=== PATIENT | female | born 1955 | race Caucasian/White ===

== ENCOUNTER → 2016-12-01 | Outpatient (CLI) | payer BC ==
[~2016-12-01] MED LIST: CATHETER FLUSH 10 ML SYR IV PRN; REGADENOSON 0.4 MG/5 ML SYR (LEXISCAN) IV ONE
[2016-12-01 12:58] VITALS: BP 141/77
--- NOTE | 2016-12-02 06:15 | STRESS TEST ---
DATE OF SERVICE: 12/01/2016 LEXISCAN MYOVIEW STRESS TEST REFERRING PHYSICIANS: Annabelle Holguin MD and Jason Carlos DO FINDINGS: Baseline heart rate is 72. Baseline blood pressure 141/77. Baseline EKG is sinus rhythm with no ischemic changes. SUMMARY: The patient was injected with 10.97 mCi of technetium-99 Myoview, and the resting images were obtained. Then the patient received 0.4 mg of Lexiscan, followed by 30.0 mCi of technetium-99 Myoview. Throughout the test, there were no EKG changes. The resting and stress images were reviewed and compared in the short axis, horizontal long axis and vertical long axis views. Review of the images showed good radiotracer uptake with breast attenuation affecting the quality of the images. No significant ischemia or infarction on SPECT images. SSS is 1. SDS 1. TID value 1.02. On the gated images, the left ventricle appeared to be normal size with normal contractility. Calculated ejection fraction 75%. CONCLUSION: 1. The patient tolerated Lexiscan well. 2. Typical female pattern with no significant ischemia or infarction on SPECT images. 3. Normal left ventricular size with normal contractility. Calculated ejection fraction 75%. Job ID: [id number] DocumentID: [id number] Dictated Date: 12/01/2016 15:12:10 Occupational Therapy Specialist Date: 12/01/2016 20:01:47 Dictated By: HEYDI ACOSTA MD
--- NOTE | 2016-12-02 10:19 | ECHOCARDIOGRAPHY REPORT ---
DATE OF SERVICE: 12/01/2016 TWO DIMENSIONAL ECHOCARDIOGRAM REFERRING PHYSICIAN: Wilma Ferreira MD MEASUREMENTS: LVID end-diastolic: 5.2. IVS thickness: 1.0. LVPW thickness: 1.0. Left atrial diameter: 4.0. Ejection fraction: 60%. FINDINGS: 1. Technically difficult study. 2. The left ventricle is normal in size with normal contractility, systolic function appeared to be normal, estimated ejection fraction is 60%. 3. The left atrium is normal in size. No clot or thrombus were seen within the left atrium. 4. The right atrium and right ventricle are normal in size. No clot or thrombus were seen within the right side. 5. Mitral valve is normal in morphology with mild mitral regurgitation noted by color Doppler flow. No mitral valve prolapse. No mitral valve stenosis. 6. Aortic valve is trileaflet with normal opening and closing pattern. No significant aortic stenosis or regurgitation was seen. 7. Tricuspid valve is normal in morphology with mild tricuspid regurgitation noted by color Doppler flow. Doppler across tricuspid valve estimated pulmonary artery pressure of 16 plus right atrial pressure. 8. Pulmonic valve is functioning normally. 9. No pericardial effusion. CONCLUSIONS: 1. Technically difficulty study. 2. Normal left ventricular size and systolic function. Estimated ejection fraction is 60%. 3. Mild mitral and tricuspid regurgitation. 4. Estimated pulmonary artery pressure of 25 mmHg. Job ID: [id number] DocumentID: [id number] Dictated Date: 12/01/2016 16:20:56 Mule Packer Date: 12/01/2016 19:54:02 Dictated By: HEYDI ACOSTA MD
== END ==
LOC: CARD 09:25
PROVIDERS: ATTEND Internal Medicine Cardiovascular Disease
DX: I25.10 Atherosclerotic heart disease of native coronary artery without angina pectoris (principal); I10 Essential (primary) hypertension; E78.2 Mixed hyperlipidemia; E11.9 Type 2 diabetes mellitus without complications; G47.33 Obstructive sleep apnea (adult) (pediatric); I08.1 Rheumatic disorders of both mitral and tricuspid valves
CPT/HCPCS: 78452; 93017; 93306

== ENCOUNTER 2016-12-31 05:31 | Outpatient (CLI) | payer BC ==
[~2016-12-31] VITALS: Ht 168.9 cm; Wt 130.6 kg
[2016-12-31] MEDS ORDERED: DULO30CA48 PO (12:02)
[2016-12-31] MEDS ORDERED: ZOLP10TA5 PO (12:03)
[2016-12-31] MEDS ORDERED: DIPH25TA31 PO (12:03)
[2016-12-31] MEDS ORDERED: DULO60CA58 PO (12:03)
[2016-12-31] MEDS ORDERED: LISI10TA2 PO (12:03)
[2016-12-31] MEDS ORDERED: METF500T8 PO (12:03)
[2016-12-31] MEDS ORDERED: SAXA1TBM2 PO (12:03)
[2016-12-31] MEDS ORDERED: MELA1TAB15 PO (12:03)
[2016-12-31] MEDS ORDERED: FENO135C4 PO (12:03)
[2016-12-31] MEDS ORDERED: CRAN400T3 PO (12:03)
[2016-12-31] MEDS ORDERED: UBID100C17 PO (12:03)
[2016-12-31] MEDS ORDERED: ATOR20TA66 PO (12:03)
[2016-12-31] MEDS ORDERED: ASPI-586 PO (12:03)
[2016-12-31] MEDS ORDERED: CARV3.122 PO (12:03)
[2016-12-31] MEDS ORDERED: CLON0.5T3 PO (12:03)
[2016-12-31] MEDS ORDERED: NAPR220C11 PO (12:03)
== END 2016-12-31 12:04 ==
LOC: PREOP 05:31
PROVIDERS: ATTEND Psychiatry & Neurology Neurology
DX: Z01.818 Encounter for other preprocedural examination (principal); Z12.11 Encounter for screening for malignant neoplasm of colon

== ENCOUNTER 2017-01-04 10:26 | Day surgery (SDC) | payer BC ==
[~2017-01-04 10:26] MED LIST changes: +ASPI-586 PO; +ATOR20TA66 PO; +CARV3.122 PO; -CATHETER FLUSH 10 ML SYR IV PRN; +CLON0.5T3 PO; +CRAN400T3 PO; +DIPH25TA31 PO; +DULO30CA48 PO; +DULO60CA58 PO; +FENO135C4 PO; +LISI10TA2 PO; +MELA1TAB15 PO; +METF500T8 PO; +NAPR220C11 PO; -REGADENOSON 0.4 MG/5 ML SYR (LEXISCAN) IV ONE; +SAXA1TBM2 PO; +UBID100C17 PO; +ZOLP10TA5 PO
[2017-01-04 10:35] VITALS: BP 128/61
[2017-01-04] MEDS ORDERED: LACTATED RINGERS 1,000 ML IV STA (10:40)
[2017-01-04] MEDS ORDERED: MIDAZOLAM 2 MG/2 ML (VERSED) VIAL ONE (12:29)
[2017-01-04] MEDS ORDERED: PROPOFOL INJECTION 50 ML IV ONE (12:29)
--- NOTE | 2017-01-04 13:47 | Progress Note-Post Operative ---
Post-Operative Progess Note Surgeon (s)/Health Information Administrator (s) Surgeon GARO BLACK DO Health Information Administrator: na Pre-Operative Diagnosis history of colon polyps Post-Operative Diagnosis colon polyps Procedure & Operative Findings Date of Procedure 01/04/17 Procedure Performed/Findings colonoscopy with hot bx polypectomy x 2 and placement of endoclip Anesthesia Type per mda Estimated Blood Loss Estimated blood loss (mL): scant Specimens/Packing Specimens Removed splenic flexure and rectal polyp GARO BLACK DO Jan 04, 2017 1:47 pm
--- NOTE | 2017-01-04 13:47 | Discharge Inst-Simple/Standard ---
Discharge Inst-Standard Patient Instructions/Follow Up Plan of Care/Instructions/FU: Follow up with Dr. Carlos in clinic in 2 weeks Repeat colonoscopy in 5 years. Hold Aspirin and naprosyn for 3 days. Activity as Tolerated: Yes Discharge Diet: No Restrictions HARLEY CRUZ APRN Jan 04, 2017 13:47
[2017-01-04 14:00] VITALS: BP 139/89
[2017-01-04 14:30] VITALS: BP 135/81
[2017-01-04 14:40] VITALS: BP 135/81
--- OUTSIDE RECORDS SUMMARY | 2017-01-04 19:56 | XMS REPORT | Continuity of Care Document ---
Author Author [facility] Address Unknown Phone Unavailable Allergies Active Description Code Type Severity Reaction Onset Reported/Identified Relationship to Patient Clinical Status Yes No Allergy Information Available [id number] Drug Allergy Unknown N/A 12/01/2016 Yes atorvastatin [id number] Drug Allergy Unknown HIVES 12/31/2016 Yes Penicillins [id number] Drug Allergy Unknown HIVES 12/31/2016 Yes rosuvastatin [id number] Drug Allergy Unknown HIVES 12/31/2016 Medications Problems Date Dx Coded Attending Type Code Diagnosis Diagnosed By 09/25/2014 DONG RUBALCAVA DO V74.1 TB SCREENING 11/22/2015 MAX CASH MD Ot G47.33 OBSTRUCTIVE SLEEP APNEA (ADULT) (PEDIATR 11/30/2015 MAX CASH MD Ot G47.33 OBSTRUCTIVE SLEEP APNEA (ADULT) (PEDIATR 12/02/2016 HEYDI ACOSTA MD Ot E11.9 TYPE 2 DIABETES MELLITUS WITHOUT COMPLIC 12/02/2016 HEYDI ACOSTA MD Ot E78.2 MIXED HYPERLIPIDEMIA 12/02/2016 HEYDI ACOSTA MD Ot G47.33 OBSTRUCTIVE SLEEP APNEA (ADULT) (PEDIATR 12/02/2016 HEYDI ACOSTA MD Ot 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 12/02/2016 HEYDI ACOSTA MD Ot I10 ESSENTIAL (PRIMARY) HYPERTENSION 12/02/2016 HEYDI ACOSTA MD Ot I25.10 ATHSCL HEART DISEASE OF [place] CORONARY 12/03/2016 HEYDI ACOSTA MD Ot E11.9 TYPE 2 DIABETES MELLITUS WITHOUT COMPLIC 12/03/2016 HEYDI ACOSTA MD Ot E78.2 MIXED HYPERLIPIDEMIA 12/03/2016 HEYDI ACOSTA MD Ot G47.33 OBSTRUCTIVE SLEEP APNEA (ADULT) (PEDIATR 12/03/2016 HEYDI ACOSTA MD Ot 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 12/03/2016 HEYDI ACOSTA MD Ot I10 ESSENTIAL (PRIMARY) HYPERTENSION 12/03/2016 HEYDI ACOSTA MD Ot I25.10 ATHSCL HEART DISEASE OF [place] CORONARY 12/16/2016 HEYDI ACOSTA MD Ot E11.9 TYPE 2 DIABETES MELLITUS WITHOUT COMPLIC 12/16/2016 HEYDI ACOSTA MD Ot E78.2 MIXED HYPERLIPIDEMIA 12/16/2016 HEYDI ACOSTA MD Ot G47.33 OBSTRUCTIVE SLEEP APNEA (ADULT) (PEDIATR 12/16/2016 HEYDI ACOSTA MD Ot 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 12/16/2016 HEYDI ACOSTA MD Ot I10 ESSENTIAL (PRIMARY) HYPERTENSION 12/16/2016 HEYDI ACOSTA MD Ot I25.10 ATHSCL HEART DISEASE OF [place] CORONARY Procedures Code [place] [address] TB TEST INTRADERMAL 09/25/2014 Results Encounters ACCT No. Visit Date/Time Discharge Status Pt. Type Provider Facility Loc./Unit Complaint [id number] 09/25/2014 16:43:00 09/25/2014 23: 59:59 CLS Outpatient DONG RUBALCAVA DO
--- NOTE | 2017-01-05 18:38 | OPERATIVE REPORT ---
PROCEDURE PHYSICIAN: GARO BLACK DATE OF PROCEDURE: 01/04/2017 PREOPERATIVE DIAGNOSIS: History of colon polyps. POSTOPERATIVE DIAGNOSIS: Colon polyps. PROCEDURE: Colonoscopy with hot biopsy polypectomy x2 and placement Endo Clip. ANESTHESIA: Per MDA. ESTIMATED BLOOD LOSS: Scant. SPECIMEN: Splenic flexure, rectal polyps. INDICATIONS: The patient is a 61-year-old female with history of colon polyps. She understands the risks and benefits of the procedure and wished to proceed with the procedure. Consent was signed on the chart. PROCEDURE: The patient was taken to the endoscopy suite, placed in left lateral recumbent position. A time out was performed. Digital rectal exam was performed. There were no palpable polyps, masses or ulcerations. The scope was inserted in the rectum, advanced all of the way to the cecum with minimal difficulty. Prep was adequate. The scope was then slowly retracted back. There were no polyps, masses or ulcerations within the cecum, ascending and transverse colon. At the splenic flexure, a small polyp was present, which hot biopsy polypectomy was performed. There was a little bit of continued bleeding therefore an Endo Clip was placed and hemostasis was achieved. The scope was then continued be slowly retracted back. There were no other polyps, masses, ulcerations within the descending colon and sigmoid colon. Once in the rectum another small polyp was present, which hot biopsy polypectomy was performed. The scope was then slowly retracted back into the rectal where it was inserted and retracted multiple times noting no other pathology. The scope was then slowly retracted back until completely remove. The patient tolerated the procedure well without any complication. She was taken recovery room in stable condition. RECOMMENDATIONS: The patient will follow-up in the office in 2 to 3 weeks. We will and discuss pathology and will need a repeat colonoscopy in 3 to 5 years due to multiple polyps and history of colon polyps. Job ID: [id number] Dictated Date: 01/04/2017 13:50:21 Hand Riveter Date: 01/05/2017 18:25:47 / tbk
== END 2017-01-04 14:40 | disposition home or self-care (01) ==
LOC: ENDO 10:26
PROVIDERS: ATTEND Surgery
DX: Z12.11 Encounter for screening for malignant neoplasm of colon (principal); D12.3 Benign neoplasm of transverse colon; K62.1 Rectal polyp; Z86.010 Personal history of colon polyps; E11.9 Type 2 diabetes mellitus without complications; G47.33 Obstructive sleep apnea (adult) (pediatric); I10 Essential (primary) hypertension; I25.10 Atherosclerotic heart disease of native coronary artery without angina pectoris; E66.01 Morbid (severe) obesity due to excess calories; Z68.42 Body mass index [BMI] 45.0-49.9, adult; Z95.5 Presence of coronary angioplasty implant and graft; Z87.891 Personal history of nicotine dependence; Z79.899 Other long term (current) drug therapy
CPT/HCPCS: 88305

== ENCOUNTER → 2018-02-01 | Outpatient (CLI) | payer BC, OTHER ==
[~2018-02-01] VITALS: Ht 167.6 cm; Wt 130.2 kg
[~2018-02-01] MED LIST changes: +ASPI-983 PO; +ATOR40TA70 PO; +AZIT500T PO; +CATHETER FLUSH 10 ML SYR IV PRN; +CLON0.5T13 PO; -CLON0.5T3 PO; +LEVO500T2 PO; +MAGN400T29 PO; +REGADENOSON 0.4 MG/5 ML SYR (LEXISCAN) IV ONE; +RT-ALBUINH IH; +UBID200C16 PO
[2018-02-01 09:29] VITALS: BP 132/88
--- NOTE | 2018-02-01 22:26 | STRESS TEST ---
DATE OF SERVICE: 02/01/2018 LEXISCAN MYOVIEW STRESS TEST REPORT Baseline heart rate is 78. Baseline blood pressure is 132/68. Baseline EKG is sinus rhythm with no ischemic changes. In summary, the patient was injected with 10.22 mCi of technetium-99 Myoview and the resting images were obtained. Then, the patient received 0.4 mg of Lexiscan followed by 31.3 mCi of technetium-99 Myoview. Throughout the test, there were no EKG changes. The resting and stress images were reviewed and compared in the short axis, horizontal long axis, and vertical long axis views. Review of the images showed mild decreased uptake at the basal to mid inferior wall, inferolateral wall with subtle reversibility. SSS is 5, SDS 3, TID value 1.13. On the gated images, the left ventricle appeared to be in normal size with normal contractility. Calculated ejection fraction 69%. CONCLUSION: 1. The patient tolerated Lexiscan well. 2. Extracardiac attenuation affecting the quality of the images, mild decreased uptake at the basal to mid inferior wall and inferolateral wall with subtle reversibility, mild fixed defect at the base of the anterior wall. 3. Normal left ventricular size with normal contractility. Calculated ejection fraction 69%. Job ID: [id number] DocumentID: [id number] Dictated Date: 02/01/2018 17:03:49 Mule Developer Date: 02/01/2018 22:25:30 Dictated By: HEYDI ACOSTA MD
== END ==
LOC: CARD 07:29
PROVIDERS: ATTEND Internal Medicine Cardiovascular Disease
DX: I25.10 Atherosclerotic heart disease of native coronary artery without angina pectoris (principal); I10 Essential (primary) hypertension; E78.2 Mixed hyperlipidemia; E11.9 Type 2 diabetes mellitus without complications; M79.7 Fibromyalgia; Z86.010 Personal history of colon polyps
CPT/HCPCS: 78452; 93017

== ENCOUNTER 2018-02-10 07:03 | Day surgery (SDC) | payer BC, OTHER ==
[2018-02-10] VITALS (10 sets, daily range): BP systolic 124–168; BP diastolic 67–95
[~2018-02-10] VITALS: Ht 167.6 cm; Wt 128.8 kg
[~2018-02-10 07:03] MED LIST changes: -ASPI-983 PO; -ATOR40TA70 PO; -AZIT500T PO; -CATHETER FLUSH 10 ML SYR IV PRN; -LEVO500T2 PO; -MAGN400T29 PO; -REGADENOSON 0.4 MG/5 ML SYR (LEXISCAN) IV ONE; -RT-ALBUINH IH; -UBID200C16 PO
[2018-02-10] MEDS ORDERED: LIDOCAINE 1% INJ 20 ML 20 ML VIAL ONE (07:08)
[2018-02-10] MEDS ORDERED: HEParin (CATH LAB) 2,000 ML IV ONE (07:08)
[2018-02-10] MEDS ORDERED: NS IV 1000 ML 1,000 ML ONE (07:08)
[2018-02-10] MEDS ORDERED: NS IV 1000 ML 1,000 ML IV SCH ×2 (07:15→09:04)
--- NOTE | 2018-02-10 07:36 | Diagnostic Imaging Report ---
EXAM: CHEST 1 VIEW, AP/PA ONLY INDICATION: Coronary artery disease. COMPARISON: None. FINDINGS: Heart size and central pulmonary vascularity upper limits normal. No dense consolidation, pleural effusion or pneumothorax. No acute osseous findings IMPRESSION: Heart size and pulmonary vascularity upper limits normal. Remainder unremarkable. Dictated by: Dictated on workstation # [id number]
[2018-02-10 07:47] LABS: BILIRUBIN,URINE NEGATIVE (NEGATIVE); CLARITY,URINE CLEAR; COLOR,URINE AMBER; GLUCOSE, URINE (UA) NEGATIVE (NEGATIVE); KETONES,URINE NEGATIVE (NEGATIVE); LEUKOCYTE ESTERASE ,URINE 1+ (NEGATIVE); NITRITE,URINE NEGATIVE (NEGATIVE); PH,URINE 5 (5-9); PROTEIN,URINE 1+ (NEGATIVE); UROBILINOGEN,URINE NORMAL (NORMAL)
[2018-02-10 07:54] LABS: HEMOGLOBIN 14.4 G/DL (11.5-16.0); MEAN PLATELET VOLUME 9.7 FL (7.4-10.4); RED BLOOD COUNT 4.79 10^6/uL (4.35-5.85); RED CELL DISTRIBUTION WIDTH 13.9 % (10.0-14.5); WHITE BLOOD COUNT 8.7 10^3/uL (4.3-11.0)
[2018-02-10] MEDS ORDERED: MAGN400T29 PO (07:55)
[2018-02-10] MEDS ORDERED: UBID200C16 PO (07:55)
[2018-02-10] MEDS ORDERED: RT-ALBUINH IH (07:55)
[2018-02-10] MEDS ORDERED: ASPI-983 PO (07:55)
[2018-02-10] MEDS ORDERED: ATOR40TA70 PO (07:55)
[2018-02-10 07:56] LABS: BACTERIA,URINE TRACE /HPF
[2018-02-10 07:59] LABS: PROTHROMBIN TIME PATIENT 12.7 SEC (12.2-14.7)
[2018-02-10 08:06] LABS: ALANINE AMINOTRANSFERASE 36 U/L (0-55); ALBUMIN 4.5 GM/DL (3.2-4.5); ALKALINE PHOSPHATASE 86 U/L (40-136); BILIRUBIN,TOTAL 0.6 MG/DL (0.1-1.0); BUN/CREATININE RATIO 16; CALCIUM 9.6 MG/DL (8.5-10.1); CARBON DIOXIDE 21 MMOL/L (21-32); CHLORIDE 105 MMOL/L (98-107); CHOLESTEROL 175 MG/DL (< 200); CREATININE SERUM 0.79 MG/DL (0.60-1.30); GFR ESTIMATED > 60; GLUCOSE 266 MG/DL (70-105); HDL CHOLESTEROL 31 MG/DL (40-60); SODIUM 138 MMOL/L (135-145); TOTAL PROTEIN 7.5 GM/DL (6.4-8.2); TRIGLYCERIDES 423 MG/DL (<150); VLDL CHOLESTEROL 85 MG/DL (5-40)
--- NOTE | 2018-02-10 08:10 | Cardiac Procedure Note-CS/ASA ---
Pre-Procedure Note Pre-Op Procedure Note H&P Reviewed The H&P was reviewed, patient examined and no changes noted. Date H&P Reviewed: Feb 10, 2018 Time H&P Reviewed: 08:10 Conscious Sedation Pre-Proced Time Reviewed: 08:10 ASA Class: 3 Airway Mallampati Classification: ([place] appropriate class) I. II. III, IV Lungs Heart ASA score ASA 1: a normal healthy patient ASA 2: a patient with a mild systemic disease (mid diabetes, controlled hypertension, obesity x ASA 3: a patient with a severe systemic disease that limits activity (angina , COPD, prior Myocardial infarction) ASA 4: a patient with an incapacitating disease that is a constant threat to life (CHF, renal failure) ASA 5: a moribund patient not expected to survive 24 hrs. (ruptured aneurysm) ASA 6: a declared brain patient whose organs are being harvested. For emergent operations, add the letter E after the classification Grade 3 Sedation Plan: Analgesia, Amnesia, Plan communicated to team members, Discussed options with patient/fam, Discussed risks with patient/fam Note The patient is an appropriate candidate to undergo the planned procedure, sedation, and anesthesia. The patient immediately re-assessed prior to indication. HEYDI ACOSTA MD Feb 10, 2018 08:10
[2018-02-10] MEDS ORDERED: MIDAZOLAM 5 MG/5 ML (VERSED) VIAL ONE (08:27)
[2018-02-10] MEDS ORDERED: NITRO DRIP 25000 MCG/D5W 250 ML IV ONE (08:28)
[2018-02-10] MEDS ORDERED: VERAPAMIL 5 MG/2 ML (CALAN) VIAL IV ONE (08:28)
[2018-02-10] MEDS ORDERED: HEParin 1000 UNIT/ML (10ML VIAL) FOR BOLUS ONE (08:28)
[2018-02-10] MEDS ORDERED: fentaNYL INJECTION 100 MCG/2 ML AMP ONE (08:28)
[2018-02-10] MEDS ORDERED: LEVO500T2 PO (09:09)
--- NOTE | 2018-02-10 09:10 | Discharge Inst-Post CATH ---
Discharge Inst-CATH Post Cardiac Cath D/C Inst Follow Up/Plan Appointment with Dr. Ortez's office in 2-4 weeks Hold metformin for 48 hours CARDIAC CATH DISCHARGE INSTRUCTIONS *Hold Metformin for 48 hours post heart cath. ACTIVITY * Go Home directly and rest. * Limit activity of the leg (or wrist if it was used) for 7 days including aerobics, swimming, jogging, bicycling, etc. * Restrict stair-climbing for 7 days if possible, if not, climb up with your non -cath leg, then bring together on the same step. * Avoid lifting, pushing, pulling or excessive movement of the affected extremity for 7 days. * Customary sexual activity may be resumed after 2 days-use caution not to use a position that strains or causes pain to the affected extremity. * No driving for 24 hours. * NO SMOKING. * Avoid straining for bowel movements for 7 days. * Gentle walking on level ground is allowed. * Returning to work will depend on the type of procedure and the results. Your doctor will discuss this with you. CALL YOUR DOCTOR FOR ANY OF THE FOLLOWING: *If bleeding from the puncture site occurs- Apply gentle pressure to site with clean cloth and call your doctor or EMS. * If a knot or lump forms under the skin, increases in size, or causes pain. * If bruising appears to be worsening or moving further down your leg instead of disappearing. * Temperature above 101 F. CARE OF YOUR GROIN INCISION; * Bruising or purple discoloration of the skin near the puncture site is common. * You may shower only, no bathtub bathing for 5 days. Be careful to avoid slipping as your leg may feel stiff. * If a closure device was used on your femoral artery, please see the attached guide regarding care of the device and your leg. * REMOVE the dressing from your groin the next day after your procedure in the shower. CARE OF YOUR WRIST INCISION; * Bruising or purple discoloration of the skin near the puncture site is common. * You may shower. * DO NOT submerge wrist. * Remove dressing in 24 hours. HEYDI ORTEZ MD Feb 10, 2018 09:10
--- NOTE | 2018-02-10 09:13 | Cardiac Cath Report ---
Cardiac Cath Report Physician (s)/Analytics Consultant (s) Physician HEYDI ACOSTA MD Pre-Procedure Diagnosis Pre-Procedure Diagnosis: abnormal stress test, coronary artery disease Post-Procedure Note Procedure Start Date: Feb 10, 2018 Name of Procedure: coronary angiogram Findings/Procedure Note PROCEDURE NOTE: After explaining the procedure to the patient, all pros and cons were explained , all questions were answered. The patient signed the consent and then she was placed on the cardiac catheterization laboratory. Groin was prepped SL fashion local anesthesia was used. Sheath placed in the right radial artery. christie catheter was used to evaluate the coronaries At the end of the procedure the sheath was removed. band was used FINDINGS: Hemodynamics LV no pressure, no crossing of the aortic valve Aorta 97/63 mean of 77 ANATOMY: Left Main is patent Left Anterior Descending has a patent stent proximally, mild disease distally Left Circumflex no significant obstructive disease Right Coronory Artery has mild disease at the midportion up to 40 percent nonobstructive disease CONCLUSION: 1. Patent stent in the LAD with mild disease distally nonobstructive disease 2. Mild disease in the midright coronary artery nonobstructive disease DISCUSSION AND RECOMMENDATION: Medical therapy is recommended Anesthesia Type: Conscious Sedation Estimated blood loss (mL): 5 ml Contrast Amount: 35 ml Total Radiation Dose: 486 mGy Post-Procedure Diagnosis Post-operative diagnosis: Coronary artery disease Hypertension Hyperlipidemia Diabetes mellitus HEYDI ACOSTA MD Feb 10, 2018 09:13
[2018-02-10] MEDS ORDERED: LEVOFLOXACIN 500 MG TAB (LEVAQUIN) PO ONE (09:15)
[2018-02-10] MEDS ORDERED: AZIT500T PO (09:18)
[2018-02-10] MEDS ORDERED: AZITHROMYCIN 250 MG TAB (ZITHROMAX) PO ONE (09:30)
--- OUTSIDE RECORDS SUMMARY | 2018-02-10 16:06 | XMS REPORT | Continuity of Care Document ---
Author Author [facility] Address Unknown Phone Unavailable Allergies Active Description Code Type Severity Reaction Onset Reported/Identified Relationship to Patient Clinical Status Yes AVELOX UNKNOWN UNKNOWN Yes CIPRO UNKNOWN UNKNOWN Yes FLOUROQUINOLONES UNKNOWN UNKNOWN Yes FLOXIN UNKNOWN UNKNOWN Yes LEVAQUIN UNKNOWN UNKNOWN Yes PENICILLINS UNKNOWN UNKNOWN Yes No Allergy Information Available [id number] Drug Allergy Unknown N/A 2016 Yes atorvastatin [id number] Drug Allergy Unknown HIVES 12/31/2016 Yes Penicillins [id number] Drug Allergy Unknown HIVES 12/31/2016 Yes rosuvastatin [id number] Drug Allergy Unknown HIVES 12/31/2016 Medications There is no data. Problems Date Dx Coded Attending Type Code Diagnosis Diagnosed By 09/25/2014 DONG RUBALCAVA DO V74.1 TB SCREENING 11/22/2015 ANNABELLE CASH MD Ot G47.33 OBSTRUCTIVE SLEEP APNEA (ADULT) (PEDIATR 11/30/2015 ANNABELLE CASH MD Ot G47.33 OBSTRUCTIVE SLEEP APNEA (ADULT) (PEDIATR 12/04/2015 A 723.4 BRACHIAL NEURITIS OR RADICULITIS NOS 12/04/2015 A M54.12 RADICULOPATHY , CERVICAL REGION 02/09/2016 A 723.4 BRACHIAL NEURITIS OR RADICULITIS NOS 02/09/2016 A M54.12 RADICULOPATHY , CERVICAL REGION 12/02/2016 HEYDI ACOSTA MD Ot E11.9 TYPE 2 DIABETES MELLITUS WITHOUT COMPLIC 12/02/2016 HEYDI ACOSTA MD Ot E78.2 MIXED HYPERLIPIDEMIA 12/02/2016 HEYDI ACOSTA MD Ot G47.33 OBSTRUCTIVE SLEEP APNEA (ADULT) (PEDIATR 12/02/2016 HEYDI ACOSTA MD Ot 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 12/02/2016 HEYDI ACOSTA MD Ot I10 ESSENTIAL (PRIMARY) HYPERTENSION 12/02/2016 HEYDI ACOSTA MD Ot I25.10 ATHSCL HEART DISEASE OF [place] CORONARY 12/03/2016 HEYDI ACOSTA MD Ot E11.9 [...] MD Ot I25.10 ATHSCL HEART DISEASE OF [place] CORONARY 12/16/2016 HEYDI ACOSTA MD Ot E11.9 [...] MD Ot I25.10 ATHSCL HEART DISEASE OF [place] CORONARY 12/21/2016 SOLOMON HAQ 724.2 LUMBAGO 12/21/2016 SOLOMON HAQ M54.5 LOW BACK PAIN 12/21/2016 SOLOMON HAQ V43.65 KNEE JOINT REPLACED BY OTHER MEANS 12/21/2016 SOLOMON HAQ V54.81 AFTERCARE FOLLOWING JOINT REPLACEMENT 12/21/2016 SOLOMON HAQ Z47.1 AFTERCARE FOLLOWING JOINT REPLACEMENT SURGERY 12/21/2016 SOLOMON HAQ Z96.652 PRESENCE OF LEFT ARTIFICIAL KNEE JOINT 01/04/2017 GARO BLACK DO Ot D12.3 BENIGN NEOPLASM OF TRANSVERSE COLON 01/04/2017 GARO BLACK DO Ot E11.9 TYPE 2 DIABETES MELLITUS WITHOUT COMPLIC 01/04/2017 GARO BLACK DO Ot E66.01 MORBID (SEVERE) OBESITY DUE TO EXCESS CA 01/04/2017 GARO BLACK DO Ot G47.33 OBSTRUCTIVE SLEEP APNEA (ADULT) (PEDIATR 01/04/2017 GARO BLACK DO Ot I10 ESSENTIAL (PRIMARY) HYPERTENSION 01/04/2017 GARO BLACK DO Ot I25.10 ATHSCL HEART DISEASE OF [place] CORONARY 01/04/2017 GARO BLACK DO Ot K62.1 RECTAL POLYP 01/04/2017 GARO BLACK DO Ot Z12.11 ENCOUNTER FOR SCREENING FOR MALIGNANT NE 01/04/2017 GARO BLACK DO Ot Z68.42 BODY MASS INDEX (BMI) 45.0-49.9, ADULT 01/04/2017 GARO BLACK DO Ot Z79.899 OTHER FDC (CURRENT) DRUG THERAPY 01/04/2017 GARO BLACK DO Ot Z86.010 PERSONAL HISTORY OF COLONIC POLYPS 01/04/2017 GARO BLACK DO Ot Z87.891 PERSONAL HISTORY OF NICOTINE DEPENDENCE 01/04/2017 GARO BLACK DO Ot Z95.5 PRESENCE OF CORONARY ANGIOPLASTY IMPLANT 01/10/2017 GARO BLACK DO Ot D12.3 BENIGN NEOPLASM OF TRANSVERSE COLON 01/10/2017 GARO BLACK DO Ot E11.9 TYPE 2 DIABETES MELLITUS WITHOUT COMPLIC 01/10/2017 GARO BLACK DO Ot E66.01 MORBID (SEVERE) OBESITY DUE TO EXCESS CA 01/10/2017 GARO BLACK DO Ot G47.33 OBSTRUCTIVE SLEEP APNEA (ADULT) (PEDIATR 01/10/2017 GARO BLACK DO Ot I10 ESSENTIAL (PRIMARY) HYPERTENSION 01/10/2017 GARO BLACK DO Ot I25.10 ATHSCL HEART DISEASE OF [place] CORONARY 01/10/2017 GARO BLACK DO Ot K62.1 RECTAL POLYP 01/10/2017 GARO BLACK DO Ot Z12.11 ENCOUNTER FOR SCREENING FOR MALIGNANT NE 01/10/2017 GARO BLACK DO Ot Z68.42 BODY MASS INDEX (BMI) 45.0-49.9, ADULT 01/10/2017 GARO BLACK DO Ot 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 01/10/2017 GARO BLACK DO Ot Z86.010 PERSONAL HISTORY OF COLONIC POLYPS 01/10/2017 GARO BLACK DO Ot Z87.891 PERSONAL HISTORY OF NICOTINE DEPENDENCE 01/10/2017 GARO BLACK DO Ot Z95.5 PRESENCE OF CORONARY ANGIOPLASTY IMPLANT 01/14/2017 HEYDI ACOSTA MD Ot E11.9 TYPE 2 DIABETES MELLITUS WITHOUT COMPLIC 01/14/2017 HEYDI ACOSTA MD Ot E78.2 MIXED HYPERLIPIDEMIA 01/14/2017 HEYDI ACOSTA MD Ot G47.33 OBSTRUCTIVE SLEEP APNEA (ADULT) (PEDIATR 01/14/2017 HEYDI ACOSTA MD Ot 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 01/14/2017 HEYDI ACOSTA MD Ot I10 ESSENTIAL (PRIMARY) HYPERTENSION 01/14/2017 HEYDI ACOSTA MD Ot I25.10 ATHSCL HEART DISEASE OF [place] CORONARY 01/19/2017 HEYDI ACOSTA MD Ot E11.9 TYPE 2 DIABETES MELLITUS WITHOUT COMPLIC 01/19/2017 HEYDI ACOSTA MD Ot E78.2 MIXED HYPERLIPIDEMIA 01/19/2017 HEYDI ACOSTA MD Ot G47.33 OBSTRUCTIVE SLEEP APNEA (ADULT) (PEDIATR 01/19/2017 HEYDI ACOSTA MD Ot 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 01/19/2017 HEYDI ACOSTA MD Ot I10 ESSENTIAL (PRIMARY) HYPERTENSION 01/19/2017 HEYDI ACOSTA MD Ot I25.10 ATHSCL HEART DISEASE OF [place] CORONARY 01/19/2017 HEYDI ACOSTA MD Ot E11.9 TYPE 2 DIABETES MELLITUS WITHOUT COMPLIC 01/19/2017 HEYDI ACOSTA MD Ot E78.2 MIXED HYPERLIPIDEMIA 01/19/2017 HEYDI ACOSTA MD Ot G47.33 OBSTRUCTIVE SLEEP APNEA (ADULT) (PEDIATR 01/19/2017 HEYDI ACOSTA MD Ot 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 01/19/2017 HEYDI ACOSTA MD Ot I10 ESSENTIAL (PRIMARY) HYPERTENSION 01/19/2017 HEYDI ACOSTA MD Ot I25.10 ATHSCL HEART DISEASE OF [place] CORONARY 08/02/2017 Brenda Mayberry W 487 INFLUENZA 08/02/2017 Brenda Mayberry W 780.60 FEVER, UNSPECIFIED 08/02/2017 Brenda Mayberry W J11.1 INFLUENZA DUE TO UNIDENTIFIED INFLUENZA VIRUS WITH OTHER RESPIRATORY MANIFESTATIONS 08/02/2017 JefeBrenda Sophia R50.9 FEVER, UNSPECIFIED 10/20/2017 Annabelle Cash R89.9 UNSPECIFIED ABNORMAL FINDING IN SPECIMENS FROM OTHER ORGANS, SYSTEMS AND TISSUES 10/20/2017 Annabelle Cash 250.80 DIABETES MELLITUS WITH OTHER SPECIFIED MANIFESTATIONS, TYPE II OR UNSPECIFIED TYPE, NOT STATED UNCONTROLLED 10/20/2017 Annabelle Cash 288.60 LEUKOCYTOSIS, UNSPECIFIED 10/20/2017 Annabelle Cash D72.829 ELEVATED WHITE BLOOD CELL COUNT, UNSPECIFIED 10/20/2017 Annabelle Cash E11.65 TYPE 2 DIABETES MELLITUS WITH HYPERGLYCEMIA 10/20/2017 Annabelle Cash R89.9 UNSPECIFIED ABNORMAL FINDING IN SPECIMENS FROM OTHER ORGANS, SYSTEMS AND TISSUES 10/20/2017 Annabelle Cash 250.80 DIABETES MELLITUS WITH OTHER SPECIFIED MANIFESTATIONS, TYPE II OR UNSPECIFIED TYPE, NOT STATED UNCONTROLLED 10/20/2017 Ezio Annabelle Cortes 288.60 LEUKOCYTOSIS, UNSPECIFIED 10/20/2017 Annabelle Cash D72.829 ELEVATED WHITE BLOOD CELL COUNT, UNSPECIFIED 10/20/2017 Annabelle Cash E11.65 TYPE 2 DIABETES MELLITUS WITH HYPERGLYCEMIA 10/20/2017 Annabelle Cash R89.9 UNSPECIFIED ABNORMAL FINDING IN SPECIMENS FROM OTHER ORGANS, SYSTEMS AND TISSUES Procedures Code Description [place] [address] TB TEST INTRADERMAL 09/25/2014 Results Test Result Range Lipid Panel - 07/17/16 10:58 C/HDL 4.4 3.7-6.7 Cholesterol 191 mg/dL 100-240 HDL 43 mg/dL 30-85 LDL-Calculated 103 mg/dL 0-100 Trig 226 mg/dL 35-160 VLDL 45 mg/dL 0-42 Comprehensive Metabolic Panel - 07/17/16 10:58 Albumin 4.6 g/dL 3.6-5.1 ALP 52 U/L 35-130 ALT 36 U/L 6-45 Anion Gap 16 6-14 AST 29 U/L 2-40 BUN 16 mg/dL 5-25 Calcium 9.8 mg/dL 8.3-10.4 Chloride 103 mmol/L 95-114 CO2 25 mEq/L 22-33 Creat 0.79 mg/dL 0.50-1.50 eGFR 73 mL/min/1.73m2 >59 Globulin 3.1 g/dL 2.3-3.5 Glucose 168 mg/dL 70-110 Osmo 292 280-295 Potassium 4.7 mmol/L 3.5-5.3 Sodium 139 mmol/L 134-148 TBil 0.5 mg/dL 0.2-1.2 TP 7.7 g/dL 6.0-8.3 Hemoglobin A1C - 07/17/16 10:58 % A1C 7.40 % 5.40-6.60 AvGlu 186 mg/dL 70-110 Comprehensive Metabolic Panel - 11/13/16 11:02 Albumin 4.3 g/dL 3.6-5.1 ALP 79 U/L 35-130 ALT 29 U/L 6-45 Anion Gap 17 6-14 AST 21 U/L 2-40 BUN 20 mg/dL 5-25 Calcium 9.6 mg/dL 8.3-10.4 Chloride 105 mmol/L 95-114 CO2 22 mEq/L 22-33 Creat 0.81 mg/dL 0.50-1.50 eGFR 71 mL/min/1.73m2 >59 Globulin 3.8 g/dL 2.3-3.5 Glucose 150 mg/dL 70-110 Osmo 292 280-295 Potassium 5.0 mmol/L 3.5-5.3 Sodium 139 mmol/L 134-148 TBil 0.4 mg/dL 0.2-1.2 TP 8.1 g/dL 6.0-8.3 BMP - 08/02/17 16:10 Anion Gap 17 6-14 BUN 14 mg/dL 5-25 Calcium 10.2 mg/dL 8.3-10.4 Chloride 102 mmol/L 95-114 CO2 25 mEq/L 22-33 Creat 1.27 mg/dL 0.50-1.50 eGFR 42 mL/min/1.73m2 >59 Glucose 237 mg/dL 70-110 Osmo 297 280-295 Potassium 3.9 mmol/L 3.5-5.3 Sodium 140 mmol/L 134-148 Mycoplasma - 08/02/17 16:10 Mycoplasma Negative Negative Urinalysis - 10/20/17 15:14 Icotest N/A Negative Urine Volume Urine Volume Sufficient (10mL) Urine-Appearance Slightly Cloudy Clear Urine-Bilirubin Negative Negative Urine-Blood 2+ Negative Urine-Color Yellow Colorless-Lt. Yellow Urine-Glucose Negative Negative Urine-Ketones Trace Negative Urine-Leukocytes Negative Negative Urine-Nitrite Negative Negative Urine-pH 6.0 5-8.5 Urine-Protein Trace Negative Urine-RBC 20-40/HPF Urine-Specific [place] 1.025 1.000-1.030 Urine-WBC 0-2/HPF Urobilinogen 0.2 E.U./dL 0.2-1.0 Encounters ACCT No. Visit Date/Time Discharge Status Pt. Type Provider Facility Loc./Unit Complaint [id number] 09/25/2014 16:43:00 09/25/2014 23:59:59 CLS Outpatient GINI MONTAÑO DONG K [id number] 12/20/2017 15:41:00 12/20/2017 23:59:59 CLS Preadmit HEYDI ACOSTA MD Via [facility] CARD CAD, DIABETES,HTN, FIBROMYALGIA [id number] 01/04/2017 10:26:00 01/04/2017 14:40:00 DIS Outpatient GARO BLACK DO [facility] ENDO SCREENING [id number] 12/31/2016 05:31:00 12/31/2016 12:04:00 DIS Outpatient YOSELYN BEDOYA, KASHIF Cullen [facility] PREOP SCREENING [id number] 12/01/2016 09:25:00 12/01/2016 23:59:59 CLS Outpatient HEYDI ACOSTA MD [facility] CARD I25.10,I10 [id number] 11/21/2015 19:52:00 11/22/2015 06:10:00 DIS Outpatient ANNABELLE CASH MD [facility] SLEEP KEEGAN,SNORING, [id number] 10/20/2017 15:11:00 10/20/2017 23:59:00 DIS Outpatient Annabelle Cash [id number] 08/02/2017 16:07:00 08/02/2017 23:59:00 DIS Outpatient Brenda Mayberry [id number] 12/21/2016 10:08:00 02/01/2017 08:30:00 DIS Outpatient SOLOMON HAQ [id number] 12/21/2016 08:58:00 12/21/2016 23:59:00 DIS Outpatient SOLOMON HAQ [id number] 11/13/2016 11:01:00 11/13/2016 23:59:00 DIS Outpatient Annabelle Cash [id number] 11/10/2016 15:26:00 11/10/2016 23:59:00 DIS Outpatient Annabelle Cash [id number] 07/17/2016 10:55:00 07/17/2016 23:59:00 DIS Outpatient Annabelle Cash [id number] 02/09/2016 15:15:00 Document Registration [id number] 12/04/2015 08:00:00 Document Registration
== END 2018-02-10 12:16 | disposition home or self-care (01) ==
LOC: CATH 07:03 → SURG 09:20 → CATH 12:16
PROVIDERS: ATTEND Internal Medicine Cardiovascular Disease
DX: I25.10 Atherosclerotic heart disease of native coronary artery without angina pectoris (principal); I10 Essential (primary) hypertension; E11.9 Type 2 diabetes mellitus without complications; G47.33 Obstructive sleep apnea (adult) (pediatric); M79.7 Fibromyalgia; E78.2 Mixed hyperlipidemia; Z68.42 Body mass index [BMI] 45.0-49.9, adult; I65.23 Occlusion and stenosis of bilateral carotid arteries; Z87.891 Personal history of nicotine dependence; Z79.82 Long term (current) use of aspirin; Z79.84 Long term (current) use of oral hypoglycemic drugs; Z79.899 Other long term (current) drug therapy
CPT/HCPCS: 36415; 71045; 80053; 80061; 81000; 85027; 85610; 85730; 87081; 93454

== ENCOUNTER → 2018-11-30 | Outpatient (CLI) | payer BC, MEDICARE, OTHER ==
[~2018-11-30] VITALS: Ht 167.6 cm; Wt 128.8 kg
[~2018-11-30] MED LIST changes: +ASPI-983 PO; +ATOR40TA70 PO; +AZIT500T PO; +LEVO500T2 PO; +MAGN400T29 PO; +RT-ALBUINH IH; +UBID200C16 PO
--- NOTE | 2018-11-30 20:51 | Diagnostic Imaging Report ---
INDICATION: Right thyroid nodule. Sonographic guidance was provided for Dr. Ho for right thyroid nodule FNA. 3 passes were made into the right thyroid nodule by Dr. Ho. IMPRESSION: Sonographic guidance for right thyroid nodule FNA by Dr. Ho. Dictated by: Dictated on workstation # [id number]
== END ==
LOC: RAD 09:42
PROVIDERS: ATTEND Otolaryngology Otolaryngology/Facial Plastic Surgery
DX: E04.1 Nontoxic single thyroid nodule (principal)
CPT/HCPCS: 88173; 88305

== ENCOUNTER 2018-12-14 05:40 | Outpatient (CLI) | payer BC, MEDICARE ==
[~2018-12-14] VITALS: Ht 167.6 cm; Wt 127.0 kg
[2018-12-14] MEDS ORDERED: UBID100C44 PO (11:32)
[2018-12-14] MEDS ORDERED: ATOR10TA66 PO (11:32)
== END 2018-12-14 11:37 | disposition home or self-care (01) ==
LOC: PREOP 05:40
PROVIDERS: ATTEND Specialist
DX: Z01.818 Encounter for other preprocedural examination (principal)

== ENCOUNTER 2019-01-03 05:39 | Outpatient (CLI) | payer BC, MEDICARE ==
[~2019-01-03 05:39] MED LIST changes: +ATOR10TA66 PO; +UBID100C44 PO
== END 2019-01-03 11:03 | disposition home or self-care (01) ==
LOC: PREOP 05:39
PROVIDERS: ATTEND Specialist
DX: Z01.818 Encounter for other preprocedural examination (principal)

== ENCOUNTER 2019-01-05 07:35 | Day surgery (SDC) | payer BC, MEDICARE ==
[~2019-01-05] VITALS: Ht 167.6 cm; Wt 127.0 kg
[2019-01-05 08:04] VITALS: BP 106/68
[2019-01-05] MEDS ORDERED: TIMOLOL MALEATE 0.5% 5 ML (TIMOPTIC) BTL OU PRN (08:15)
[2019-01-05] MEDS ORDERED: LIDOCAINE PF 1% 2 ML AMP IR PRN (08:15)
[2019-01-05] MEDS ORDERED: POVIDONE (BETADINE) OPHTH SOLN 5% 30 ML OP ONE (08:15)
[2019-01-05] MEDS: TETRACAINE 0.5% OPHTH SOLN 4 ML BTL (SINGLE DOSE ONLY) OU PRN ×4 (08:19→08:46)
[2019-01-05] MEDS: CYCLOPENTOLATE 1% (CYCLOGYL) 2 ML DROPS OP SCH ×3 (08:31→08:46)
[2019-01-05] MEDS: PHENYLEPHRINE 10% OPHTH (NEO-SYN) 5 ML BTL OU SCH ×3 (08:31→08:46)
--- OUTSIDE RECORDS SUMMARY | 2019-01-05 08:52 | XMS REPORT | Continuity of Care Document ---
Author Organization Unknown Address Unknown Allergies Active Description Code Type Severity Reaction Onset Reported/Identified Relationship to Patient Clinical Status Yes AVELOX UNKNOWN UNKNOWN Yes CIPRO UNKNOWN UNKNOWN Yes FLOUROQUINOLONES UNKNOWN UNKNOWN Yes FLOXIN UNKNOWN UNKNOWN Yes LEVAQUIN UNKNOWN UNKNOWN Yes PENICILLINS UNKNOWN UNKNOWN Yes No Allergy Information Available [id number] Drug Allergy Unknown N/A 12/01/2016 Yes atorvastatin [id number] Drug Allergy Unknown HIVES 12/31/2016 Yes Penicillins [id number] Drug Allergy Unknown HIVES 12/31/2016 Yes rosuvastatin [id number] Drug Allergy Unknown HIVES 12/31/2016 Yes ciprofloxacin [id number] Drug Allergy Unknown N/A 12/14/2018 Yes levofloxacin [id number] Drug Allergy Unknown N/A 12/14/2018 Yes moxifloxacin [id number] Drug Allergy Unknown N/A 12/14/2018 Medications There is no data. Problems Date Dx Coded Attending Type Code Diagnosis Diagnosed By 09/25/2014 DONG RUBALCAVA DO V74.1 TB SCREENING 11/22/2015 ANNABELLE CASH MD Ot G47.33 OBSTRUCTIVE SLEEP APNEA (ADULT) (PEDIATR 11/30/2015 ANNABELLE CASH MD Ot G47.33 OBSTRUCTIVE SLEEP APNEA (ADULT) (PEDIATR 12/04/2015 A 723.4 BRACHIAL NEURITIS OR RADICULITIS NOS 12/04/2015 A M54.12 RADICULOPATHY, CERVICAL REGION 02/09/2016 A 723.4 BRACHIAL NEURITIS OR RADICULITIS NOS 02/09/2016 A M54.12 RADICULOPATHY, CERVICAL REGION 12/02/2016 KARLA BEDOYA, HEYDI Meyers Ot E11.9 TYPE 2 DIABETES MELLITUS WITHOUT COMPLIC 12/02/2016 HEYDI ACOSTA MD Ot E78.2 MIXED HYPERLIPIDEMIA 12/02/2016 HEYDI ACOSTA MD Ot G47.33 OBSTRUCTIVE SLEEP APNEA (ADULT) (PEDIATR 12/02/2016 HEYDI ACOSTA MD Ot 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 12/02/2016 HEYDI ACOSTA MD Ot I10 ESSENTIAL (PRIMARY) HYPERTENSION 12/02/2016 HEYDI ACOSTA MD Ot I25.10 ATHSCL HEART DISEASE OF [place] CORONARY 12/03/2016 HEYDI ACOSTA MD Ot E11.9 [...] MD Ot I25.10 ATHSCL HEART DISEASE OF [place] CORONARY 12/16/2016 HEYDI ACOSTA MD Ot E11.9 [...] MD Ot I25.10 ATHSCL HEART DISEASE OF [place] CORONARY 12/21/2016 SOLOMON HAQ 724.2 LUMBAGO 12/21/2016 [...] OBSTRUCTIVE SLEEP APNEA (ADULT) (PEDIATR 01/04/2017 GARO BLCAK DO Ot I10 ESSENTIAL (PRIMARY) HYPERTENSION 01/04/2017 GARO BLACK DO Ot I25.10 ATHSCL HEART DISEASE OF [place] CORONARY 01/04/2017 GARO BLACK DO Ot K62.1 RECTAL POLYP 01/04/2017 GARO BLACK DO Ot Z12.11 ENCOUNTER FOR SCREENING FOR MALIGNANT NE 01/04/2017 GARO BLACK DO Ot Z68.42 BODY MASS INDEX (BMI) 45.0-49.9, ADULT 01/04/2017 GARO BLACK DO Ot Z79.899 OTHER ART DEPARTMENT HEAD (CURRENT) DRUG THERAPY 01/04/2017 GARO BLACK DO [...] DO Ot I25.10 ATHSCL HEART DISEASE OF [place] CORONARY 01/10/2017 GARO BLACK DO Ot K62.1 RECTAL POLYP 01/10/2017 GARO BLACK DO Ot Z12.11 ENCOUNTER FOR SCREENING FOR MALIGNANT NE 01/10/2017 GARO BLACK DO Ot Z68.42 BODY MASS INDEX (BMI) 45.0-49.9, ADULT 01/10/2017 GARO BLACK DO Ot Z79.899 OTHER FDC (CURRENT) DRUG THERAPY 01/10/2017 GARO BLACK DO [...] MD Ot I25.10 ATHSCL HEART DISEASE OF [place] CORONARY 01/19/2017 HEYDI ACOSTA MD Ot E11.9 [...] MD Ot I25.10 ATHSCL HEART DISEASE OF [place] CORONARY 01/19/2017 HEYDI ACOSTA MD Ot E11.9 [...] MD Ot I25.10 ATHSCL HEART DISEASE OF [place] CORONARY 08/02/2017 Brenda Mayberry W 487 INFLUENZA 08/02/2017 Brenda Mayberry 780.60 FEVER, UNSPECIFIED 08/02/2017 Brenda Mayberry J11.1 INFLUENZA DUE TO UNIDENTIFIED INFLUENZA VIRUS WITH OTHER RESPIRATORY MANIFESTATIONS 08/02/2017 Brenda Mayberry R50.9 FEVER, UNSPECIFIED 10/20/2017 Annabelle Cash R89.9 UNSPECIFIED ABNORMAL FINDING IN SPECIMENS FROM OTHER ORGANS, SYSTEMS AND TISSUES 10/20/2017 Annabelle Cash 250.80 DIABETES MELLITUS WITH OTHER SPECIFIED MANIFESTATIONS, TYPE II OR UNSPECIFIED TYPE, NOT STATED UNCONTROLLED 10/20/2017 Annabelle Cash W 288.60 LEUKOCYTOSIS, UNSPECIFIED 10/20/2017 Annabelle Cash D72.829 [...] BLOOD CELL COUNT, UNSPECIFIED 10/20/2017 Annabelle Cash Kay E11.65 TYPE 2 DIABETES MELLITUS WITH HYPERGLYCEMIA 10/20/2017 Annabelle Cash R89.9 UNSPECIFIED ABNORMAL FINDING IN SPECIMENS FROM OTHER ORGANS, SYSTEMS AND TISSUES 02/10/2018 HEYDI ACOSTA MD Ot E11.9 TYPE 2 DIABETES MELLITUS WITHOUT COMPLIC 02/10/2018 HEYDI ACOSTA MD Ot E78.2 MIXED HYPERLIPIDEMIA 02/10/2018 HEYDI ACOSTA MD Ot G47.33 OBSTRUCTIVE SLEEP APNEA (ADULT) (PEDIATR 02/10/2018 HEYDI ACOSTA MD Ot I10 ESSENTIAL (PRIMARY) HYPERTENSION 02/10/2018 HEYDI ACOSTA MD, Ot I25.10 ATHSCL HEART DISEASE OF [place] CORONARY 02/10/2018 HEYDI ACOSTA MD Ot I65.23 OCCLUSION AND STENOSIS OF BILATERAL [place] 02/10/2018 HEYDI ACOSTA MD Ot M79.7 FIBROMYALGIA 02/10/2018 HEYDI ACOSTA MD Ot Z68.42 BODY MASS INDEX (BMI) 45.0-49.9, ADULT 02/10/2018 HEYDI ACOSTA MD Ot Z79.82 ART DEPARTMENT HEAD (CURRENT) USE OF ASPIRIN 02/10/2018 HEYDI ACOSTA MD Ot Z79.84 FDC (CURRENT) USE OF ORAL HYPOGLYC 02/10/2018 HEYDI ACOSTA MD Ot Z79.899 OTHER ART DEPARTMENT HEAD (CURRENT) DRUG THERAPY 02/10/2018 HEYDI ACOSTA MD, Ot Z87.891 PERSONAL HISTORY OF NICOTINE DEPENDENCE 02/14/2018 HEYDI ACOSTA MD Ot E11.9 TYPE 2 DIABETES MELLITUS WITHOUT COMPLIC 02/14/2018 HEYDI ACOSTA MD Ot E78.2 MIXED HYPERLIPIDEMIA 02/14/2018 HEYDI ACOSTA MD Ot G47.33 OBSTRUCTIVE SLEEP APNEA (ADULT) (PEDIATR 02/14/2018 HEYDI ACOSTA MD Ot I10 ESSENTIAL (PRIMARY) HYPERTENSION 02/14/2018 HEYDI ACOSTA MD Ot I25.10 ATHSCL HEART DISEASE OF [place] CORONARY 02/14/2018 HEYDI ACOSTA MD Ot I65.23 OCCLUSION AND STENOSIS OF BILATERAL [place] 02/14/2018 HEYDI ACOSTA MD Ot M79.7 FIBROMYALGIA 02/14/2018 HEYDI ACOSTA MD Ot Z68.42 BODY MASS INDEX (BMI) 45.0-49.9, ADULT 02/14/2018 HEYDI ACOSTA MD Ot Z79.82 FDC (CURRENT) USE OF ASPIRIN 02/14/2018 HEYDI ACOSTA MD Ot Z79.84 FDC (CURRENT) USE OF ORAL HYPOGLYC 02/14/2018 HEYDI ACOSTA MD Ot Z79.899 OTHER ART DEPARTMENT HEAD (CURRENT) DRUG THERAPY 02/14/2018 HEYDI ACOSTA MD Ot Z87.891 PERSONAL HISTORY OF NICOTINE DEPENDENCE 03/22/2018 HEYDI ACOSTA MD Ot E11.9 TYPE 2 DIABETES MELLITUS WITHOUT COMPLIC 03/22/2018 HEYDI ACOSTA MD Ot E78.2 MIXED HYPERLIPIDEMIA 03/22/2018 HEYDI ACOSTA MD Ot I10 ESSENTIAL (PRIMARY) HYPERTENSION 03/22/2018 HEYDI ACOSTA MD Ot I25.10 ATHSCL HEART DISEASE OF [place] CORONARY 03/22/2018 KARLA BEDOYA, HEYDI Meyers Ot M79.7 FIBROMYALGIA 03/22/2018 HEYDI ACOSTA MD, Ot Z86.010 PERSONAL HISTORY OF COLONIC POLYPS 03/31/2018 Annabelle Cash W 715.04 OSTEOARTHROSIS, GENERALIZED, INVOLVING HAND 03/31/2018 Annabelle Cash W R22.9 LOCALIZED SWELLING, MASS AND LUMP, UNSPECIFIED 03/31/2018 Annabelle Cash W 715.04 OSTEOARTHROSIS, GENERALIZED, INVOLVING HAND 03/31/2018 Annabelle Cash W R22.9 LOCALIZED SWELLING, MASS AND LUMP, UNSPECIFIED 07/03/2018 MELODY BEDOYA, SHANNON P Ot 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 ( 07/07/2018 MELODY BEDOYA, SHANNON P Ot 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 ( 07/26/2018 MELODY BEDOYA, SHANNON P Ot 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 ( 12/01/2018 MELODY BEDOYA, SHANNON P Ot 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 ( 12/11/2018 MELODY BEDOYA, SHANNON P Ot E04.1 NONTOXIC SINGLE THYROID NODULE 12/14/2018 VALERIA BEDOYA, TANESHA Morrison Ot Z01.818 ENCOUNTER FOR OTHER PREPROCEDURAL EXAMIN 12/15/2018 TANESHA SHAW MD Ot E11.36 TYPE 2 DIABETES MELLITUS WITH DIABETIC C 12/15/2018 TANESHA SHAW MD Ot E66.9 OBESITY, UNSPECIFIED 12/15/2018 TANESHA SHAW MD Ot F32.9 MAJOR DEPRESSIVE DISORDER, SINGLE EPISOD 12/15/2018 TANESHA SHAW MD, Ot F41.9 ANXIETY DISORDER, UNSPECIFIED 12/15/2018 TANESHA SHAW MD Ot H25.12 AGE-RELATED NUCLEAR CATARACT, LEFT EYE 12/15/2018 TANESHA SHAW MD Ot I10 ESSENTIAL (PRIMARY) HYPERTENSION 12/15/2018 TANESHA SHAW MD, Ot I25.10 ATHSCL HEART DISEASE OF [place] CORONARY 12/15/2018 TANSEHA SHAW MD, Ot Z68.42 BODY MASS INDEX (BMI) 45.0-49.9, ADULT 12/15/2018 TANESHA SHAW MD, Ot Z79.82 FDC (CURRENT) USE OF ASPIRIN 12/15/2018 TANESHA SHAW MD, Ot Z79.899 OTHER FDC (CURRENT) DRUG THERAPY 12/15/2018 TANESHA SHAW MD Ot Z95.5 PRESENCE OF CORONARY ANGIOPLASTY IMPLANT 12/15/2018 TANESHA SHAW MD, Ot Z01.818 ENCOUNTER FOR OTHER PREPROCEDURAL EXAMIN 12/19/2018 TANESHA SHAW MD Ot E11.36 TYPE 2 DIABETES MELLITUS WITH DIABETIC C 12/19/2018 TANESHA SHAW MD, Ot E66.9 OBESITY, UNSPECIFIED 12/19/2018 TANESHA SHAW MD, Ot F32.9 MAJOR DEPRESSIVE DISORDER, SINGLE EPISOD 12/19/2018 TANESHA SHAW MD, Ot F41.9 ANXIETY DISORDER, UNSPECIFIED 12/19/2018 TANESHA SHAW MD, Ot H25.12 AGE-RELATED NUCLEAR CATARACT, LEFT EYE 12/19/2018 TANESHA SHAW MD Ot I10 ESSENTIAL (PRIMARY) HYPERTENSION 12/19/2018 TANESHA SHAW MD, Ot I25.10 ATHSCL HEART DISEASE OF [place] CORONARY 12/19/2018 TANESHA SHAW MD Ot Z68.42 BODY MASS INDEX (BMI) 45.0-49.9, ADULT 12/19/2018 TANESHA SHAW MD, Ot Z79.82 ART DEPARTMENT HEAD (CURRENT) USE OF ASPIRIN 12/19/2018 TANESHA SHAW MD, Ot Z79.899 OTHER FDC (CURRENT) DRUG THERAPY 12/19/2018 TANESHA SHAW MD Ot Z95.5 PRESENCE OF CORONARY ANGIOPLASTY IMPLANT 12/26/2018 MELODY BEDOYA, SHANNON Gómez Ot E04.1 NONTOXIC SINGLE THYROID NODULE 01/03/2019 TANESHA SHAW MD Ot Z01.818 ENCOUNTER FOR OTHER PREPROCEDURAL EXAMIN 01/04/2019 TANESHA SHAW MD, Ot Z01.818 ENCOUNTER FOR OTHER PREPROCEDURAL EXAMIN Procedures Code Description [place] [address] TB TEST INTRADERMAL 09/25/2014 Results Test Result [...] 5-8.5 Urine-Protein Trace Negative Urine-RBC 20-40/HPF Urine-Specific [place] 1.025 1.000-1.030 Urine-WBC 0-2/HPF Urobilinogen 0.2 E.U./dL 0.2-1.0 Thyroid Stimulating Hormone - 03/25/18 08:40 TSH 1.99 mIU/mL 0.32-5.00 Mycoplasma - 08/02/18 16:11 Mycoplasma Negative Negative VIT B-12 - 12/11/18 11:04 Vitamin B12 282.00 pg/mL 213.00-816.00 Capillary blood glucose measurement by glucometer (mass/volume) - 12/15/18 08:31 Capillary blood glucose measurement by glucometer (mass/volume) 221 mg/dL 70-110 Encounters ACCT No. Visit Date/Time Discharge Status Pt. Type Provider Facility Loc./Unit Complaint [id number] 09/25/2014 16:43:00 09/25/2014 23:59:59 CLS Outpatient RUBALCAVA DONG MONTAÑO [id number] 01/03/2019 05:39:00 01/03/2019 11:03:00 DIS Outpatient TANESHA SHAW MD [facility] PREOP CATARACT RIGHT [id number] 12/15/2018 07:33:00 12/15/2018 10:15:00 DIS Outpatient TANESHA HSAW MD [facility] SDC CATARACT LEFT EYE [id number] 12/14/2018 05:40:00 12/14/2018 11:37:00 DIS Outpatient TANESHA SHAW MD [facility] PREOP CATARACT LEFT EYE [id number] 11/30/2018 09:42:00 11/30/2018 23:59:59 CLS Outpatient SHANNON OLIVER MD [facility] RAD THYOID NODULE [id number] 09/06/2018 10:55:00 09/06/2018 23:59:59 CLS Preadmit SHANNON OLIVER MD [facility] RAD MULTINODULAR GOITER [id number] 06/29/2018 09:52:00 06/29/2018 23:59:59 CLS Outpatient SHANNON OLIVER MD [facility] RAD RIGHT THYROID NODULE [id number] 02/10/2018 07:03:00 02/10/2018 12:16:00 DIS Outpatient HEYDI ACOSTA MD [facility] CATH ABN STRESS TEST,SOB,DM,CAD,HTN,HLP [id number] 12/20/2017 15:41:00 12/20/2017 23:59:59 CLS Outpatient HEYDI ACOSTA MD [facility] CARD CAD, DIABETES,HTN,FIBROMYALGIA [id number] 01/04/2017 10:26:00 01/04/2017 14:40:00 DIS Outpatient GARO BLACK DO [facility] ENDO SCREENING [id number] 12/31/2016 05:31:00 12/31/2016 12:04:00 DIS Outpatient KASHIF TOPETE MD [facility] PREOP SCREENING [id number] 12/01/2016 09:25:00 12/01/2016 23:59:59 CLS Outpatient HEYDI ACOSTA MD [facility] CARD I25.10,I10 [id number] 11/21/2015 19:52:00 11/22/2015 06:10:00 DIS Outpatient ANNABELLE CASH MD [facility] SLEEP KEEGAN,SNORING, [id number] 01/05/2019 11:00:00 PEN Preadmit TANESHA SHAW MD [facility] SDC CATARACT RIGHT [id number] 12/11/2018 11:00:00 12/11/2018 23:59:00 DIS Outpatient Annabelle Cash [id number] 08/02/2018 16:05:00 08/02/2018 23:59:00 DIS Outpatient Annabelle Cash [id number] 03/31/2018 14:42:00 03/31/2018 23:59:00 DIS Outpatient Annabelle Cash [id number] 03/25/2018 08:40:00 03/25/2018 23:59:00 DIS Outpatient Annabelle Cash [id number] 10/20/2017 15:11:00 10/20/2017 23:59:00 DIS Outpatient Annabelle Cash [id number] 08/02/2017 16:07:00 08/02/2017 23:59:00 DIS Outpatient Brenda Mayberry [id number] 12/21/2016 10:08:00 02/01/2017 08:30:00 DIS Outpatient SEVERINO SOLOMON [id number] 12/21/2016 08:58:00 12/21/2016 23:59:00 DIS Outpatient SEVERINO SOLOMON [id number] 11/13/2016 11:01:00 11/13/2016 23:59:00 DIS Outpatient Annabelle Cash [id number] 11/10/2016 15:26:00 11/10/2016 23:59:00 DIS Outpatient Annabelle Cash [id number] 07/17/2016 10:55:00 07/17/2016 23:59:00 DIS Outpatient Annabelle Cash [id number] 02/09/2016 15:15:00 Document Registration [id number] 12/04/2015 08:00:00 Document Registration
[2019-01-05] MEDS ORDERED: MIDAZOLAM 2 MG/2 ML (VERSED) VIAL ONE (09:18)
--- NOTE | 2019-01-05 09:19 | Ophthalmologist Pre-Op Note ---
Pre-Operative Progress Note H&P Reviewed The H&P was reviewed, patient examined and no changes noted. Date H&P Reviewed: Jan 05, 2019 Time H&P Reviewed: 09:19 Pre-Op Dx Cataract, Right Eye TANESHA SHAW MD Jan 05, 2019 09:19
--- NOTE | 2019-01-05 09:41 | Ophthalmology Operative Report ---
Cataract removal/placement IOL PREOPERATIVE DIAGNOSIS: Cataract Right Eye POSTOPERATIVE DIAGNOSIS: Cataract Right Eye PROCEDURE: Cataract removal and placement of posterior chamber implant, right eye SURGEON: Hermes Shaw ANESTHESIA: Topical with sedation COMPLICATIONS: None ESTIMATED BLOOD LOSS: Minimal DESCRIPTION OF PROCEDURE: After proper informed consent was obtained, the patient, a 63 female, was taken to the Operating Room and the right eye was anesthetized with tetracaine. The right eye was then prepped and draped in the usual manner. A wire lid speculum was placed. A paracentesis was made at the left hand position. Preservative free lidocaine was injected into the anterior chamber followed by viscoelastic. A clear corneal incision was made in the temporal position. A capsulorrhexis was preformed and the central nuclear and cortical material were removed. The posterior capsule was polished and Misael 20.5 [id number] IOL was placed into the capsular bag. The residual viscoelastic was aspirated and balanced saline solution was injected into the anterior chamber. Moxifloxacin was injected into the anterior chamber. The wound was checked and found to be water tight. The patient tolerated the procedure well without complications. HERMES SHAW MD Jan 05, 2019 09:41
[2019-01-05 09:48] VITALS: BP 115/63
[2019-01-05] MEDS ORDERED: acetaZOLAMIDE ER 500 MG CAP (DIAMOX SEQUELS) PO ONE (10:00)
--- NOTE | 2019-01-05 10:42 | Anesthesia-General Post-Op ---
MAC Patient Condition Mental Status/LOC: Same as Preop Cardiovascular: Satisfactory Nausea/Vomiting: Absent Respiratory: Satisfactory Pain: Controlled Complications: Absent Post Op Complications Complications None Follow Up Care/Instructions Patient Instructions None needed. Anesthesiology Discharge Order Discharge Order Patient is doing well, no complaints, stable vital signs, no apparent adverse anesthesia problems. No complications reported per nursing. JOSÉ LUIS VALLES CRNA Jan 05, 2019 10:42
== END 2019-01-05 09:49 | disposition home or self-care (01) ==
LOC: SDC 07:35
PROVIDERS: ATTEND Specialist
DX: H25.11 Age-related nuclear cataract, right eye (principal); Z80.0 Family history of malignant neoplasm of digestive organs; Z80.1 Family history of malignant neoplasm of trachea, bronchus and lung; E11.9 Type 2 diabetes mellitus without complications; F41.9 Anxiety disorder, unspecified; F32.9 Major depressive disorder, single episode, unspecified; G47.00 Insomnia, unspecified; I10 Essential (primary) hypertension; I25.10 Atherosclerotic heart disease of native coronary artery without angina pectoris; E78.5 Hyperlipidemia, unspecified; G47.33 Obstructive sleep apnea (adult) (pediatric); K44.9 Diaphragmatic hernia without obstruction or gangrene; E66.9 Obesity, unspecified; Z95.5 Presence of coronary angioplasty implant and graft; Z79.82 Long term (current) use of aspirin; Z79.899 Other long term (current) drug therapy; Z88.0 Allergy status to penicillin; Z88.1 Allergy status to other antibiotic agents; Z68.42 Body mass index [BMI] 45.0-49.9, adult
CPT/HCPCS: 82962

== ENCOUNTER → 2019-03-28 | Outpatient (CLI) | payer BC, MEDICARE, OTHER ==
[~2019-03-28] MED LIST changes: -DULO30CA48 PO; +DULO30CA49 PO; -DULO60CA58 PO; +DULO60CA59 PO
--- NOTE | 2019-03-28 16:24 | Diagnostic Imaging Report ---
PROCEDURE: US Thyroid. TECHNIQUE: Multiple real-time grayscale images were obtained of the thyroid in various projections. INDICATION: Thyroid nodule. FINDINGS: There are no prior thyroid ultrasound examinations available for comparison. The patient did undergo an ultrasound-guided aspiration of a 1.4 x 1.1 cm nodule in the right lobe of the thyroid on 11/30/2018. The results of the aspiration are not known to me. This study was technically difficult due to the patient's body habitus. In the right lobe of the thyroid, there is a 1.7 x 1.1 x 1.4 cm avascular hypoechoic nodule. This would correspond to the finding on the previous exam, and this hypoechoic nodule does not seem to have changed significantly. Correlation with the patient's pathology results would be recommended. There is also a second similar-sized but slightly smaller hypoechoic nodule in the inferior pole of the right lobe of the thyroid. This measures 1.0 x 0.7 x 1.2 cm. This finding was not included on the prior exam. There is also a 1.2 x 0.8 x 1.3 cm hypoechoic nodule in the inferior pole of the left lobe. This may be partially calcified. The thyroid gland itself is not enlarged with the right lobe measuring 4.7 x 1.6 x 1.8 cm while the left lobe estimated to be 3.6 x 1.4 x 1.3 cm (normal gland size 4-5 x 2 x 2 cm or less). IMPRESSION: 1. The hypoechoic nodule in the mid portion of the right lobe of the thyroid that was previously biopsied seems similar in appearance to prior exam. Correlation with the patient's biopsy results would be recommended. 2. The roughly 1 cm hypoechoic nodules in the inferior pole of each lobe are of uncertain etiology, although they do not have an aggressive appearance. If previous studies are available, they would be helpful for comparison. If there are no prior studies, then aspiration of these nodules should also be considered. If there is no intervention at this time and there are no prior exams available for comparison, then a short-term (six-month) follow-up thyroid ultrasound exam would be recommended. Dictated by: Dictated on workstation # [id number]
== END ==
LOC: RAD 14:40
PROVIDERS: ATTEND Otolaryngology Otolaryngology/Facial Plastic Surgery
DX: E04.2 Nontoxic multinodular goiter (principal); Z98.890 Other specified postprocedural states
CPT/HCPCS: 76536

== ENCOUNTER → 2019-05-08 | Outpatient (CLI) | payer BC, MEDICARE ==
[2019-05-08 15:42] LABS: ABSOLUTE RETIC # 80 10e9/L (24-90)
[2019-05-08 16:19] LABS: BASOPHILS % (MANUAL) 1 %; EOSINOPHILS % (MANUAL) 1 %; LYMPHOCYTES % (MANUAL) 15 %; MONOCYTES % (MANUAL) 9 %; NEUTROPHILS % (MANUAL) 63 %; RBC MORPH NORMAL; REACTIVE LYMPHOCYTES 11 %
== END ==
LOC: LABNPT 15:39
PROVIDERS: ATTEND Family Medicine
DX: Z01.89 Encounter for other specified special examinations (principal)
CPT/HCPCS: 85007; 85045

== ENCOUNTER → 2019-12-10 | Outpatient (CLI) | payer BC, MEDICARE ==
[~2019-12-10] MED LIST changes: -CLON0.5T13 PO; +CLON0.5T4 PO; +FAMO20TA5 PO; +GLIM1TAB4 PO; +MAGN250T13 PO; +MELA1TAB27 PO; +METF-865 PO; -METF500T8 PO; +SOLI5TAB7 PO; +ZOLP10TA PO
--- NOTE | 2019-12-10 15:51 | Diagnostic Imaging Report ---
CLINICAL INDICATION: Patient with thyroid nodules. Follow-up exam. COMPARISONS: Ultrasound of the thyroid gland dated 03/28/2019. FINDINGS: THYROID NODULES: Stable heterogeneous hypoechoic nodule involving the mid to lower portion of the left thyroid lobe measuring 1.2 cm x 1.8 cm x 1.1 cm. Stable 1.5 cm x 1.1 cm x 1.2 cm hypoechoic nodules involving the midportion of the left thyroid gland. There is no significant central Doppler flow associated with these nodules. Stable 1.0 cm x 1.0 cm x 1.2 cm hypoechoic nodules involving the inferior portion of the right thyroid lobe. THYROID GLAND: Besides the thyroid nodules, the thyroid gland has normal size, shape and echogenicity. The right lobe measures 4.5 cm x 2.0 cm x 1.3 cm and the left lobe measures 3.4 cm x 1.3 cm x 1.4 cm in their three dimensions. IMPRESSION: Stable bilateral thyroid gland nodules, as described above. Otherwise, the remainder of the thyroid gland is unremarkable. Dictated by: Dictated on workstation # [id number]
== END ==
LOC: RAD 13:54
PROVIDERS: ATTEND Otolaryngology Otolaryngology/Facial Plastic Surgery
DX: E04.2 Nontoxic multinodular goiter (principal)
CPT/HCPCS: 76536

== ENCOUNTER 2019-12-13 05:34 | Outpatient (RCR) | payer BC, MEDICARE ==
[~2019-12-13] VITALS: Ht 167.7 cm; Wt 131.8 kg
[~2019-12-13 05:34] MED LIST changes: -FAMO20TA5 PO; -GLIM1TAB4 PO; -MAGN250T13 PO; -MELA1TAB27 PO; -SOLI5TAB7 PO; -ZOLP10TA PO
[2019-12-13] MEDS ORDERED: ATOR20TA66 PO (10:47)
[2019-12-13] MEDS ORDERED: GLIM1TAB4 PO (10:47)
[2019-12-13] MEDS ORDERED: ZOLP10TA PO (10:47)
[2019-12-13] MEDS ORDERED: SOLI5TAB7 PO (10:47)
[2019-12-13] MEDS ORDERED: MELA1TAB27 PO (10:47)
[2019-12-13] MEDS ORDERED: FAMO20TA5 PO (10:47)
[2019-12-13] MEDS ORDERED: MAGN250T13 PO (10:47)
== END 2019-12-13 14:44 | disposition home or self-care (01) ==
LOC: PREOP 05:34
PROVIDERS: ATTEND Surgery
DX: Z01.818 Encounter for other preprocedural examination (principal); Z11.59 Encounter for screening for other viral diseases
CPT/HCPCS: 87635

== ENCOUNTER 2019-12-18 08:14 | Day surgery (SDC) | payer BC, MEDICARE ==
[~2019-12-18] VITALS: Ht 167.7 cm; Wt 131.8 kg
[~2019-12-18 08:14] MED LIST changes: +FAMO20TA5 PO; +GLIM1TAB4 PO; +MAGN250T13 PO; +MELA1TAB27 PO; +SOLI5TAB7 PO; +ZOLP10TA PO
[2019-12-18 08:20] VITALS: BP 158/73
[2019-12-18] MEDS ORDERED: LACTATED RINGERS 1,000 ML IV STA (08:22)
[2019-12-18] MEDS ORDERED: CLINDAMYCIN 600 MG/50 ML IVPB 50 ML IV ONE (08:30)
[2019-12-18] MEDS ORDERED: LACTATED RINGERS 1,000 ML IV ONE (08:32)
--- OUTSIDE RECORDS SUMMARY | 2019-12-18 08:46 | XMS REPORT | CCD ---
Author Author MICHAEL Paris[facility] Address Unknown Phone Unavailable Care Team Providers Care Senior Electrical Engineer Name Role Phone ALEJANDRINA CHAN MD PP [phone] SHAUNNA BEDOYA, DR. Alyse WEEKS CP [phone] Allergies, Adverse Reactions, Alerts Substance Reaction Status penicillin Active Medications Medication Instructions Start Date End Date Status LYNETTE C LYNETTE C, 500 mg, PO, BID (2 times a 04/23/2009 Ordered day), 04/23/09 10:01:39 Fish Oil - oral TID (3 times a day), 04/23/09 04/23/2009 Ordered capsule 10:00:29 loratadine 10 mg 10 mg, PO, Daily, 04/23/09 10:00:20 04/23/20 09 Ordered oral tablet COUMadin 7.5 mg, PO, QHS (At bedtime), 04/26/2009 Ordered 04/26/09 12:00:42, adjust dose adjust dose Tylenol 650 mg, PO, Q4H (Every 4 hours), 04/26/2009 Ordered PRN as needed for fever, 04/26/09 11:59:35 PERcocet-5/325 1 - 2 tabs, PO, Q4H (Every 4 04/26/2009 O rdered hours), PRN as needed for pain, 04/26/09 11:58:06 Senokot S 1 TAB, PO, BID (2 times a day), 04/26/2009 Ordered 04/26/09 11:55:37, hold for loose stools hold for loose stools CoLACE 100 mg, PO, BID (2 times a day), 04/26/2009 Ordered 04/26/09 11:53:47, hold for loose stools / diarrhea hold for loose stools / diarrhea Ferrous Sulfate 325 mg, PO, BIDWM (2 times a day 04/26/2009 Ordered tablet with meals), 04/26/09 11:52 :29 insulin aspart 0 -5 units, Subcut, WM (With 04/26/2009 O rdered meals), 04/26/09 11:44:40, per sliding scale; FSBG 150 -199 give 0 units; 200 - 249 give 2 units; 250 - 299 give 3 units; 300 - 349 give 4 units;above 349 give 5 units and notify doctor per sliding scale; FSBG 150 -199 give 0 units; 200 - 249 give 2 units; 250 - 299 give 3 units; 300 - 349 give 4 units;above 349 give 5 units and notify doctor Ambien CR 5 mg, PO, QHS (At bedtime), 04/14/2009 Or dered 04/14/09 12:24:06 Trilipix 135 mg, PO, Daily, 04/14/09 04/14/2009 Or dered 12:23:19 insulin aspart 0 to 3 units, Subcut, QHS (At 04/26/2009 Ordered bedtime), 04/26/09 11:38:19, per sliding scale; FSBG less than 249; give 0 units,250 - 349 give 2 units;above 349 give 3 units and notify doctor per sliding scale; FSBG less than 249; give 0 units,250 - 349 give 2 units;above 349 give 3 units and notify doctor Crestor 10 mg oral = 1 TAB, PO, QHS (At bedtime), 04/14/2009 Ordered tablet 04/14/09 12:22:14 Cymbalta 60 mg oral 60 mg, PO, Daily, 04/14/09 04/14/2009 Ordered delayed release 12:22:05, (do not crush or chew) capsule (do not crush or chew) Vitamin C 500 mg 500 mg, PO, Daily, 04/14/09 04/14/2009 Ordered oral tablet 12:21:52 Vital Signs Most recent to oldest [Reference Range]: 1 Temperature [96.8-99.7 DegF] 98.1 DegF (04/26/2009 08:00:00) Temp Method Oral (04/26/2009 08:00:00) Heart Rate 74 bpm (04/23/2009 15:00:00) Pulse Rate [60-100 bpm] 79 bpm (04/26/2009 08:00:00) Heart Rate Location Auto BP (04/25/2009 19:46:00) Pulse Equipment Auto BP (04/25/2009 19:46:00) Respiratory Rate [14-20 br/min] 20 br/min (04/26/2009 08:00:00) Systolic Blood Pressure [90-140 mmHg] 107 mmHg (04/26/2009 08:00:00) Diastolic Blood Pressure [60-90 mmHg] 56 mmHg *LOW* (04/26/2009 08:00:00) Mean Arterial Pressure 73 mmHg (04/26/2009 08:00:00) Inet NIBP Systolic [71-219 mmHg] 126 mmHg (04/23/2009 15:00:00) Inet NIBP Diastolic [50-90 mmHg] 55 mmHg (04/23/2009 15:00:00) NIBP MAP 70 mmHg (04/23/2009 15:00:00) BP Location Arm, right (04/25/2009 19:46:00) BP Equipment Auto BP (04/25/2009 19:46:00) Heart Rhythm Sinus/atrial rhythm (04/23/2009 15:00:00) Procedures Procedures Date Related Diagnosis Total hip replacement 04/23/2009 00:00:00
--- OUTSIDE RECORDS SUMMARY | 2019-12-18 08:47 | XMS REPORT ---
Author Author [employer] high school foreign language tutor [employer] [facility] [employer] [facility] [employer]eeper Address [address] [address] Care Team Providers Care Warp Spinner Name Role Phone SHREYA, MAX A Unavailable HEYDI ACOSTA MD Unavailable Unavailable KASHIF TOPETE MD Unavailable Unavailable BLACKGARO WOO DO Unavailable Unavailable SHREYA, MAX A Unavailable CLAUDETTE, SOPHIA Unavailable Unavailable CLAUDETTE, SOPHIA Unavailable Unavailable CLAUDETTE, SOPHIA Unavailable Unavailable GARO BLACK DO Unavailable Unavailable HEYDI ACOSTA MD Unavailable Unavailable KASHIF TOPETE MD Unavailable Unavailable MAX CASH MD Unavailable Unavailable SEVERINO, SOLOMON Unavailable Unavailable SEVERINO, SOLOMON Unavailable Unavailable SEVERINO, SOLOMON Unavailable Unavailable SHREYA, MAX Unavailable Unavailable SHANNON OLIVER Unavailable Unavailable SHANNON OLIVER Unavailable Unavailable MAX CASH PCP TANESHA SHAW MD Unavailable Unavailable SHANNON OLIVER MD Unavailable Unavailable BROKOB, MARIBEL Unavailable Unavailable BROKOB, MARIBEL Unavailable Unavailable BROKOB, MARIBEL Unavailable Unavailable BROWN, ASYA Unavailable Unavailable BROWN, ASYA Unavailable Unavailable BROWN, ASYA Unavailable Unavailable SHREYA, MAX Unavailable Unavailable SHREYA, MAX Unavailable Unavailable NABBOUT, QUENTIN Unavailable Unavailable NABBOUT, QUENTIN Unavailable Unavailable NABBOUT, QUENTIN Unavailable Unavailable MAX CASH MD Unavailable Unavailable SHANNON OLIVER Unavailable Unavailable MD Kay CASH PCP Unavailable Unavailable Unavailable Unavailable Unavailable Unavailable Unavailable Unavailable Unavailable Unavailable Allergies Normalized Allergy Reported Date of Reaction(s) Care Provider Facility Allergy Type classification allergen Allergy Onset Drug Allergy Quinolones Ciprofloxacin 12-14-2018 - UNKNOWN, SANTIAGO WILLIAM Via (23 sources.) (antibiotic) Translations: emelia Cabrera Translations: [ ([id number]), Hospital - [ Allergy to levofloxacin, Levofloxacin, [place] Substance] moxifloxacin, moxifloxacin (33775) ciprofloxacin ([id number]) ([id number]), Levofloxacin, moxifloxacin ([id number])] no information Unclassified [facility]OUR[facility]INOLON UNKNOWN [facility] (21 sources.) [facility] (73003) DA (4 Unclassified No Allergy 12-01-2016 - no information BAS LUIS ACOSTA , Not Available sources.) Information (03186) Available Medications Current Medications Medication Ingredient Drug Dose Dates Status Sig Sig Care Class(es) (Normalized) (Original) Provid er famotidine Famotidine Histamine-2 Active no Famotidine no 20 mg oral Receptor information Active 20 name tablet (1 Antagonist ORAL Bedtime source.) glimepiride glimepiride Sulfonylure Active no Glimepir jonathan no 1 mg oral a information Active 1 name tablet (1 ORAL source.) Daily@1800 no magnesium no Active no Magnesium no information oxide information information Oxide Active n adam (4 250 ORAL sources.) Daily@1800 12-14-2018 Completed no Magnesiu no name inform m Oxide ation Disconti nued 400 ORAL Daily December 14, 2018 12-14-2018 Completed no Magnesiu (no inform m Oxide phone) ation (Magox 400) 400 Mg Tablet, 400 Mg Oral Daily Disconti nued 400 mg Completed take 1 Magnesiu (no tablet m Oxide phone) by (Magox mouth 400) 400 once Mg daily, Tablet then 400 Mg take ORAL 400 Daily tablet s by mouth no Melatonin / no Active no Melatonin/Py no information pyridoxine information information ridoxine Hcl name (2 (B6) Active sources.) 6 ORAL Bedtime 12-13-2019 Completed no Melatoni no name inform n/Pyrido ation xine Disconti nued 5 ORAL Bedtime December 13, 2019 solifenacin Solifenacin Cholinergic Active no Solifena ralf no succinate 5 Muscarinic information Succinate name mg oral Antagonist Active 5 tablet (1 ORAL Daily source.) no Ubidecareno no Active no Ubidecarenon no information ne information information e Active 100 n adam (2 ORAL Bedtime sources.) 12-14-2018 Completed no Ubidecar no name inform cornell Lemusi nued 200 ORAL Daily December 14, 2018 Completed/Discontinued Medications Medication Ingredient Drug Dose Dates Status Sig Sig Care Class(es) (Normalized) (Original) Provid er no Albuterol beta2-Adren 1 12-15-19 Complete take 1 Alb uterol no information ergic puff(s 19 d puff(s) by Sulfate name (1 source.) Agonist ) inhalation Discontinued every four 2 hours RESPIRATORY (INHALATION) Every 4HRS December 14, 2018 1 PUFF = 90 MCG no Albuterol no 1 Complete take 1 Albuterol (no information Sulfate information puff(s d puff(s) by Sulfate phone) (1 source.) (Proair ) inhalation (Proair Hfa) Hfa) 1 Puff every four 1 Puff Puff Puff hours 2 Puff RESPIRATORY (INHALATION) Every 4HRS 1 PUFF = 90 MCG no Albuterol no 12-15-19 Complete no Albuterol (no information Sulfate information 19 d information Sulfat e phone) (1 source.) (Proair (Proair Hfa) Hfa) 1 Puff 1 Puff Puff, Puff, 2 2 Puff Puff Respiratory Respiratory (Inhalation) (Inhalation Every 4HRS ) Discontinued azithromyci azithromyci Macrolide 500 mg 02-11-20 Complete no Azithromycin Bashar n 500 mg n Antimicrobi 18 - d information (Zithromax ) J oral tablet al 12-15-19 500 Mg Neelima (3 19 Tablet, 500 (no sources.) Mg Oral phone) Daily 02/10/18 Discontinued coenzyme coenzyme no 02-11-20 Complete no Ubidecarenon n o q10 100 mg Q10 information 18 d information e name oral Discontinued capsule (2 100 ORAL sources.) Daily February 10, 2018 no Cranberry no 12-15-19 Complete no Cranberry no information Fruit information 19 d information Fruit name (1 source.) Discontinued 400 ORAL Daily December 14, 2018 no Cranberry no 400 mg 12-15-19 Complete take 1 Cranberr y (no information Fruit information 19 d tablet by Fruit p steve) (1 source.) (Cranberry) mouth once (Cranberry) 400 Mg daily 400 Mg Tablet, 400 Tablet, 400 Mg Oral Mg Oral Daily Discontinued no Ubidecareno no 100 mg Complete take 1 Ubidecarenon ( no information ne (Co information d capsule by e (Co Q-1 0) phone) (1 source.) Q-10) 100 mouth at 100 Mg Mg Capsule bedtime Capsule 100 Mg ORAL Bedtime no Ubidecareno no 200 mg Complete take 1 Ubidecarenon ( no information ne (Co information d capsule by e (Co Q-1 0) phone) (1 source.) Q-10) 200 mouth once 200 Mg Mg Capsule daily Capsule 200 Mg ORAL Daily no Ubidecareno no 12-15-19 Complete no Ubidecarenon (no information ne (Co information 19 d information e (Co Q -10) phone) (1 source.) Q-10) 200 200 Mg Mg Capsule, Capsule, 200 200 Mg Oral Mg Oral Daily Discontinued no Ubidecareno no 02-11-20 Complete no Ubidecarenon (no information ne (Coq-10) information 18 d information e (Coq-10) phone) (1 source.) 100 Mg 100 Mg Capsule, Capsule, 100 100 Mg Oral Mg Oral Daily Discontinued Problems Active Problems Problem Normalized Date Last Normalized Normalized Provider Fa cility Classification Problem(s) Recorded Problem Problem Sta tus Duration Other Aftercare Chronic Active SOLOMON HAQ Not Availabl e aftercare (2 following (84277) sources.) joint replacement Other Aftercare Chronic Active SOLOMON HAQ Not Availabl e aftercare (2 following (95486) sources.) joint replacement surgery Cataract (10 Age-related 12-06-2019 - Chronic Active TANESHA WOODRUFF [facility] Via sources.) nuclear MD Cabrera cataract, left Hospital - eye [place] Translations: (79469) [ AGE-RELATED NUCLEAR CATARACT, RIGHT EYE, Age-related cataract] Other upper Allergic Chronic Active [facility] Hospita l respiratory rhinitis, [facility] of disease (12 unspecified [place] sources.) [facility] (46875) Allergic Allergy status 12-06-2019 - Episodic Active TANESHA DAMON [facility] Via reactions (8 to penicillin MD Cabrera sources.) Translations: Hospital - [ ALLERGY [place] STATUS TO (15380) OTHER ANTIBIOTIC AGENT] Anxiety Anxiety 12-06-2019 - Chronic Active [facility] disorders (29 disorder, [facility] of sources.) unspecified [place] Translations: [facility] (99986) [ GENERALIZED ANXIETY DISORDER, GENERALIZED ANXIETY DISORDER] Coronary Atheroscleroti 12-06-2019 - Chronic Active HEYDI GIL [facility] Via atherosclerosi c heart MD Deborah lee and other disease of Hospital - heart disease sitka [place] (26 sources.) coronary (97772) artery without angina pectoris Translations: [ PRESENCE OF CORONARY ANGIOPLASTY IMPLANT, CORONARY ATHEROSCLEROSI S OF UNSPECIFIED TYPE OF VESSEL, [place] OR GRAFT, Coronary artery disease] Other and Benign 12-06-2019 - Episodic Active GARO BLACK [facility] Via unspecified neoplasm of [facility] benign transverse Hospital - neoplasm (6 colon [place] sources.) (90555) Other Body mass 12-06-2019 - Chronic Active GARO BLACK [facility] Via nutritional; index (BMI) DO [facility] endocrine; and 45.0-49.9, Hospital - metabolic adult [place] disorders (17 (28980) sources.) Cataract (1 Cataract no information Active [facility] As cension Via source.) [address] [facility] (50623) Abdominal Diaphragmatic 12-06-2019 - Episodic Active TANESHA DAMON [facility] Via hernia (4 hernia without , MD Cabrera sources.) obstruction or Hospital - gangrene [place] (71836) Other lower Dyspnea Episodic Active [facility] Via Chr isti respiratory Translations: 24552 Hospital disease (3 [ Shortness of [place] sources.) breath] (02281) Diseases of Elevated white Chronic Active [facility] H ospital white blood blood cell [facility] of cells (4 count, [place] sources.) unspecified County ([address]) Translations: [ LEUKOCYTOSIS, UNSPECIFIED] Other Encounter for 12-06-2019 - Episodic Active KASHIF [facility] Via screening for screening for MD Deborah TOPETE suspected malignant Hospital - conditions neoplasm of [place] (not mental colon (76529) disorders or Translations: infectious [ UNSPECIFIED disease) (13 ABNORMAL sources.) FINDING IN SPECIMENS FROM OTHER ORGANS, SYSTEMS AND TISSUES, Abnormal cardiovascular stress test] Essential Essential 12-06-2019 - Chronic Active HEYDI ACOSTA [facility] Via hypertension (primary) MD Cabrera (25 sources.) hypertension Hospital - Translations: [place] [ UNSPECIFIED (56838) ESSENTIAL HYPERTENSION, ESSENTIAL (PRIMARY) HYPERTENSION, Hypertension] Residual Family history 12-06-2019 - Episodic Active TANESHA DAMON [facility] Via codes; of malignant , MD Cabrera unclassified neoplasm of Hospital - (4 sources.) digestive [place] organs (88621) Residual Family history 12-06-2019 - Episodic Active TANESHA ANL NELSON [facility] Via codes; of malignant , MD Cabrera unclassified neoplasm of Hospital - (4 sources.) trachea, [place] bronchus and (30744) lung Fever of Fever, Episodic Active [facility] unknown origin unspecified [facility] of (4 sources.) Translations: [place] [ FEVER, [facility] (65398) UNSPECIFIED] Other Fibromyalgia 12-06-2019 - Episodic Active HEYDI JARA I , [facility] Via connective MD Cabrera tissue disease Hospital - (12 sources.) [place] (68935) Influenza (2 Influenza due Episodic Active [facility] spital sources.) to [facility] of unidentified [place] influenza [facility] (54025) virus with other respiratory manifestations Residual Insomnia, 12-06-2019 - Episodic Active TANESHAVICKI SHAW [facility] Via codes; unspecified , MD Cabrera unclassified Hospital - (4 sources.) [place] (19675) 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 SHANNON LOUISE [facility] Via disorders (15 ncy related , MD Cabrera sources.) multinodular Hospital - (endemic) [place] goiter (63428) Translations: [ NONTOXIC SINGLE THYROID NODULE, NONTOXIC MULTINODULAR GOITER] Other Knee joint Chronic Active SOLOMON SEVERINO Not Availab le connective replacement (06711) tissue disease (3 sources.) Other skin Localized Episodic Active MAX SHREYA Hospita l disorders (5 swelling, mass [facility] of sources.) and lump, [place] unspecified County (84697) Other penitentiary 12-06-2019 - Episodic Active HEYDI ACOSTA [facility] Via aftercare (14 (current) use MD Cabrera sources.) of aspirin [facility] (90552) 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 HEYDI ACOSTA [facility] Via aftercare (2 (current) use MD Cabrera sources.) of oral Hospital - hypoglycemic [place] drugs (10068) Mood disorders Major 12-06-2019 - Chronic Active TANESHA ANL NELSON [facility] Via (9 sources.) depressive , MD Cabrera disorder, Hospital - single [place] episode, (09011) unspecified Disorders of Mixed 12-06-2019 - Chronic Active BASHAR MAREK I , [facility] Via lipid hyperlipidemia MD Cabrera metabolism (22 Translations: Hospital - sources.) [ [place] HYPERLIPIDEMIA (78847) , UNSPECIFIED, OTHER AND UNSPECIFIED HYPERLIPIDEMIA ] Other Morbid 12-06-2019 - Chronic Active GARO BLACK , [facility] Via nutritional; (severe) DO Cabrera endocrine; and obesity due to Hospital - metabolic excess [place] disorders (7 calories (72302) sources.) Translations: [ BODY MASS INDEX (BMI) 45.0-49.9, ADULT] Other upper Nasal Chronic Active MAX SHREYA Hospita l respiratory mucositis [facility] of disease (2 (ulcerative) [place] sources.) [facility] (03572) Other upper Nasal Chronic Active MAX SHREYA Hospita l respiratory mucositis [facility] of disease (2 (ulcerative) [place] sources.) [facility] (81845) Other Obesity, 12-06-2019 - Chronic Active TANESHA SHAW [facility] Via nutritional; unspecified , MD Cabrera endocrine; and Hospital - metabolic [place] disorders (9 (63182) sources.) Residual Obstructive 12-06-2019 - Chronic Active MAX [facility] R Not Available codes; sleep apnea MD (65832) unclassified (adult) (23 sources.) (pediatric) Translations: [ BODY MASS INDEX (BMI) 45.0-49.9, ADULT] Occlusion or Occlusion and 12-06-2019 - Chronic Active HEYDI ACOSTA [facility] Via stenosis of stenosis of MD Cabrera precerebral bilateral Hospital - arteries (5 carotid [place] sources.) arteries (80253) Osteoarthritis Osteoarthrosis Chronic Active [facility] (25 sources.) , generalized, [facility] of [facility] Translations: [facility] (24820) [ UNSPECIFIED OSTEOARTHRITIS , UNSPECIFIED SITE, OSTEOARTHROSIS , UNSPECIFIED WHETHER GENERALIZED OR LOCALIZED, INVOLVING UNSPECIFIED SITE] Other Other long 12-06-2019 - Episodic Active GARO BLACK [facility] Via aftercare (20 term (current) DO Cabrera sources.) drug therapy Hospital - [place] (92939) Residual Other 12-06-2019 - Episodic Active SHANNON OLIVER [facility] Via codes; specified , MD Cabrera unclassified postprocedural Hospital - (4 sources.) [facility] (55518) Otitis media Otitis media, Episodic Active ASYA BROWN H ospital and related unspecified, [facility] of conditions (6 right ear [place] sources.) Translations: [facility] (06867) [ UNSPECIFIED OTITIS MEDIA] Other and Personal 12-06-2019 - Episodic Active GARO BLACK [facility] Via unspecified history of DO Cabrera benign colonic polyps Hospital - neoplasm (14 Translations: [place] sources.) [ BENIGN (86192) NEOPLASM OF TRANSVERSE COLON] Screening and Personal 12-06-2019 - Episodic Active GARO WONG AR , [facility] Via history of history of DO Cabrera mental health nicotine Hospital - and substance dependence [place] abuse codes (87189) (12 sources.) Other nervous Personal Episodic Active MAX SHREYA Hospi [place]lette system history of [facility] of disorders (12 other diseases [place] sources.) of the nervous County (20264) system and sense organs Other nervous Personal Episodic Active MAX SHREYA Hospi yolette system history of [facility] of disorders (12 other [place] sources.) disorders of [facility] (76737) nervous system and sense organs Coronary Presence of 12-06-2019 - Episodic Active GARO BLACK [facility] Via atherosclerosi coronary DO Deborah s and other angioplasty Hospital - heart disease implant and [place] (12 sources.) graft (15098) Translations: [ ATHSCL HEART DISEASE OF [place] CORONARY , ATHSCL HEART DISEASE OF [place] CORONARY ] Coronary Presence of no information Active GARO BLACK , Not Available atherosclerosi coronary DO (69202) s and other angioplasty heart disease implant and (8 sources.) graft Translations: [ ATHSCL HEART DISEASE OF [place] CORONARY ] Other Presence of Chronic Active SOLOMON HAQ Not Availa ble connective left (11999) tissue disease artificial (3 sources.) knee joint Genitourinary Proteinuria Episodic Active [facility] Ho spital symptoms and Translations: District [facility] of ill-defined [ PROTEINURIA, [place] conditions (20 UNSPECIFIED] [facility] (77676) sources.) Anal and Rectal polyp 12-06-2019 - Episodic Active GARO FULLER R , [facility] Via rectal DO Deborah conditions (7 Hospital - sources.) [place] (47821) 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 HEYDI JARA I , [facility] Via disorders (9 disorders of MD Cabrera sources.) both mitral Hospital - and tricuspid [place] valves (54584) Diabetes Type 2 12-06-2019 - Chronic Active [facility] mellitus with diabetes District [facility] of complications mellitus with [place] (9 sources.) diabetic [facility] (53041) cataract Translations: [ TYPE 2 DIABETES MELLITUS WITH HYPERGLYCEMIA, DIABETES MELLITUS WITH OTHER SPECIFIED MANIFESTATIONS , TYPE II OR UNSPECIFIED TYPE, NOT STATED UNCONTROLLED] Diabetes Type 2 12-06-2019 - Chronic Active HEYDI ACOSTA [facility] Via mellitus diabetes MD Cabrera without mellitus Hospital - complication without [place] (24 sources.) complications (23085) Translations: [ DIABETES MELLITUS WITHOUT MENTION OF COMPLICATION, TYPE II OR UNSPECIFIED TYPE, NOT STATED UNCONTROLLED, TYPE 2 DIABETES MELLITUS WITHOUT COMPLICATIONS] Residual Unspecified Chronic Active MAX SHREYA Hospit al codes; sleep apnea [facility] of unclassified [place] (12 sources.) County (84866) Urinary tract Urinary tract Episodic Active MARIBEL CHAVARRIA ospital infections (16 infection, [facility] of sources.) site not [place] specified County (13362) Translations: [ URINARY TRACT INFECTION, SITE NOT SPECIFIED] Unclassified no information no information Active MAX MAC Via [facility] (8 sources.) [address] Hospital [place] (43873) Past or Other Problems Problem Normalized Date Last Normalized Normalized Provider Fa cility Classification Problem(s) Recorded Problem Problem Sta tus Duration Unclassified Allergic no information no information MAX SALVGWEN OR Hospital (12 sources.) rhinitis [facility] of [facility] (91747) Unclassified Influenza no information no information [facility] (2 sources.) [facility] of [facility] (30017) 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 no information no name no information (3 sources.) (current) use of oral hypoglycemic drugs Spondylosis; Low back pain Episodic Completed SOPHIA Smith ot Available intervertebral Translations: (96657) disc [ LUMBAGO, disorders; RADICULOPATHY, other back CERVICAL problems (12 REGION, sources.) BRACHIAL NEURITIS OR RADICULITIS NOS] Procedures Procedure Normalized Procedure Procedure Result Performer Facility Date 11-30-2018 Aspiration no information SHANNON Lindsey on Via [facility] (13607) 02-10-2018 Electrocardiographic no information HEYDI ACOSTA Via [facility] procedure [place] (68665) 11-30-2018 Fine needle aspiration no information SHANNON BAPTISTE ER [place] Via [facility] w/us gdn [address] [place] [address] (96316) Meropenem <=4 no name [address] [facility] of [facility] (70258) Piperacillin/tazobacta <=16 no name Hospita l [facility] m of [facility] (24486) 02-10-2018 Plain chest X-ray no information HEYDI ACOSTA Vi [facility] (78591) 02-01-2018 Radionuclide no information HEYDI ACOSTA Via [facility] myocardial perfusion [place] (52202) study 12-10-2019 US scan of thyroid no information no name Asce nsion Via [facility] (33273) Immunizations The data below is from unstructured sources Immunization Event Date Not Given Reason Dose Number Crisis Nurse Lot Number Vaccine Information Statement (VIS) Deta il Results Test Name Value Interpretation Reference Range Date Time Fa cility (Normalized) (Normalized) (Medline Reference) laboratory on 2019-07-06 Parathyrin.intac 11 pg/mL (L) 10 - 55 pg/mL 07-06-2019 L [facility] (08108) t [Mass/Vol] 07:46-0500 not yet categorized on 2019-07-04 PTH, INTACT 11 (L) 07-04-2019 Hospital 09:29-0500 [facility] (23755) laboratory on 2019-07-04 Calcium 10.2 mg/dL (no code) 8.5 - 10.2 mg/dL 07-04-2019 Hosp ital [Mass/Vol] 09:29-0500 [facility] (73690) not yet categorized on 2019-06-05 Interpretation: Comment (no code) 06-05-2019 [facility] (0 0000) 08:55-0500 laboratory on 2019-06-05 Genetic analysis . (no code) 06-05-2019 [facility] ( 50059) narrative report 21:00-0500 [facility] Doc (Bld/Tiss) JAK2 gene Comment (no code) 06-05-2019 [facility] (09224 ) p.[id number] 08:04-0500 [facility] Ql (Bld/Tiss) Laboratory Comment (no code) 06-05-2019 [facility] (51367 ) director name 08:55-0500 Nom (Provider) t(9;22)(q34.1;q1 Comment (no code) 06-05-2019 [facility] ( 88698) 1)(ABL1,BCR) 08:55-0500 b2a2 fusion transcript/contr ol transcript [facility] (Bld/Tiss) [# ratio] t(9;22)(q34.1;q1 Comment (no code) 06-05-2019 [facility] ( 24602) 1)(ABL1,BCR) 08:55-0500 b3a2 fusion transcript/contr ol transcript [facility] (Bld/Tiss) [# ratio] t(9;22)(q34.1;q1 Comment (no code) 06-05-2019 [facility] ( 60329) 1)(ABL1,BCR) 08:55-0500 e1a2 fusion transcript/contr ol transcript [facility] (Bld/Tiss) [# ratio] laboratory on 2019-05-31 Laboratory Comment (no code) 05-31-2019 [facility] (81442 ) comment Javi 01:34-0500 (Report) Reference lab Comment (no code) 05-31-2019 [facility] (000 00) test method Unsp 01:34-0500 time Javi (Reference lab test) laboratory on 2019-05-30 Albumin BCG dye 4.5 (no code) 05-30-2019 Hospital [Mass/Vol] 05: [facility] (89573) ALP [Catalytic 106 U/L (no code) 44 - 147 U/L 05-30-2019 Hosp ital activity/Vol] 05: [facility] (54018) ALT [Catalytic 26 U/L (no code) 4 - 40 U/L 05-30-2019 Hospit al activity/Vol] 05: [facility] (51508) Anion gap 15 mmol/L (H) 3 - 11 mmol/L 05-30-2019 Hospital [Moles/Vol] 05: [facility] (68722) AST [Catalytic 21 U/L (no code) 10 - 34 U/L 05-30-2019 Hospi yolette activity/Vol] 05: [facility] (31336) Basophils (Bld) 0.1 10*3/uL (no code) 0 - 0.3 10*3/uL 05-30-2019 Hospital [#/Vol] 05: [facility] (43905) Basophils/100 0.70 % (no code) 0.5 - 1 % 05-30-2019 Hospital WBC (Bld) 05: [facility] (86453) Bilirubin 0.4 mg/dL (no code) 0.1 - 1.2 mg/dL 05-30-2019 Hospit al [Mass/Vol] 05: [facility] (52700) Calcium 9.8 mg/dL (no code) 8.5 - 10.2 mg/dL 05-30-2019 Hospi yolette [Mass/Vol] 05: [facility] (87884) Chloride 104 mmol/L (no code) 95 - 106 mmol/L 05-30-2019 Hospi yolette [Moles/Vol] 05: [facility] (75640) Creatinine 0.90 mg/dL (no code) 05-30-2019 Hospital [Mass/Vol] 05: [facility] (22493) Eosinophils 0.2 10*3/uL (no code) 0.05 - 0.5 05-30-2019 Hospita l (Bld) [#/Vol] 10*3/uL 05: [facility] (73193) Eosinophils/100 1.7 % (no code) 1 - 4 % 05-30-2019 Hospit al WBC (Bld) 05: [facility] of [facility] (33839) Erythrocyte 13.4 % (no code) 11.6 - 14.6 % 05-30-2019 Hospit al distribution 05: [facility] of width (RBC) [facility] [Ratio] (86186) GFR/1.73 sq 63 (no code) 90 - 120 05-30-2019 Hospital M.predicted MDRD mL/min/{1.73_m2} mL/min/{1.73_m2} 05: [facility] (S/P/Bld) [Vol [facility] rate/Area] ([id number]) Globulin (S) 2.7 g/dL (no code) 2 - 3.5 g/dL 05-30-2019 Hospit al [Mass/Vol] 05: [facility] (47091) Glucose 252 mg/dL (H) 60 - 125 mg/dL 05-30-2019 Hospita l [Mass/Vol] 05: [facility] (47497) HCO3 (P) 23 (no code) 05-30-2019 Hospital [Moles/Vol] 05: [facility] (83758) Hematocrit (Bld) 43.3 % (no code) 36.1 - 50.3 % 05-30-2019 H ospital [Volume 05: [facility] fraction] [facility] ([id number]) Hemoglobin (Bld) 14.1 g/dL (no code) 12.1 - 17.2 g/dL 05-30-2019 Hospital [Mass/Vol] 05: [facility] (49714) Lymphocytes 2.66 10*3/uL (no code) 0.9 - 2.9 05-30-2019 Hospita l (Bld) [#/Vol] 10*3/uL 05: [facility] (04362) Lymphocytes/100 27.6 % (no code) 20 - 40 % 05-30-2019 Hospit al WBC (Bld) 05: [facility] ([id number]) MCH (RBC) 30.7 pg (no code) 27 - 31 pg 05-30-2019 Hospital [Entitic mass] 05: [facility] ([id number]) MCHC (RBC) 32.6 g/dL (no code) 32 - 36 g/dL 05-30-2019 Hospital [Mass/Vol] 05: [facility] (29461) MCV (RBC) 94.1 fL (no code) 80 - 100 fL 05-30-2019 Hospital [Entitic vol] 05: [facility] ([id number]) Monocytes (Bld) 0.7 10*3/uL (no code) 0.3 - 0.9 05-30-2019 Hosp ital [#/Vol] 10*3/uL 05: [facility] (28887) Monocytes/100 7.2 % (no code) 2 - 8 % 05-30-2019 Hospital WBC (Bld) 05: [facility] (35815) Neutrophils 6.07 10*3/uL (no code) 1.7 - 7 10*3/uL 05-30-2019 H ospital (Bld) [#/Vol] 05: [facility] (35667) Neutrophils/100 62.8 % (no code) 40 - 60 % 05-30-2019 Hospit al WBC (Bld) 05: [facility] ([id number]) Osmolality Calc 294 (no code) 05-30-2019 Hospital [Osmolality] 05: [facility] ([id number]) Platelet mean 9.8 fL (no code) 7.2 - 11.7 fL 05-30-2019 Hosp ital volume (Bld) 05: [facility] [Entitic vol] [facility] ([id number]) Platelets (Bld) 400 10*3/uL (no code) 150 - 450 05-30-2019 Hosp ital [#/Vol] 10*3/uL 05: [facility] (01733) Potassium 4.9 mmol/L (no code) 3.7 - 5.2 mmol/L 05-30-2019 Hosp ital [Moles/Vol] 05: [facility] (90507) Protein 7.2 g/dL (no code) 6.4 - 8.3 g/dL 05-30-2019 Hospita l [Mass/Vol] 05: [facility] (12244) RBC (Bld) 4.60 10*6/uL (no code) 4.2 - 6.1 05-30-2019 Hospital [#/Vol] 10*6/uL 05: [facility] (50832) Sodium 137 mmol/L (no code) 135 - 145 mmol/L 05-30-2019 Hosp ital [Moles/Vol] 05: [facility] (17360) Urea nitrogen 22 mg/dL (no code) 7 - 20 mg/dL 05-30-2019 Hospi yolette [Mass/Vol] 05: [facility] (50293) WBC (Bld) 9.65 10*3/uL (no code) 3.5 - 10.5 05-30-2019 Hospital [#/Vol] 10*3/uL 05: [facility] (95244) laboratory on 2019-05-07 Basophils (Bld) 0.1 10*3/uL (no code) 0 - 0.3 10*3/uL 05-07-2019 Hospital [#/Vol] 10: [facility] (71515) Basophils/100 0.60 % (no code) 0.5 - 1 % 05-07-2019 Hospital WBC (Bld) 10: [facility] (43206) Blood smear Sent to [facility] (no code) 05-07-2019 Hospital finding LM Nom Pathology for 10: [facility] (Bld) review [facility] ([id number]) Eosinophils 0.1 10*3/uL (no code) 0.05 - 0.5 05-07-2019 Hospita l (Bld) [#/Vol] 10*3/uL 10: [facility] (21444) Eosinophils/100 1.0 % (no code) 1 - 4 % 05-07-2019 Hospit al WBC (Bld) 10: [facility] ([id number]) Erythrocyte 13.3 % (no code) 11.6 - 14.6 % 05-07-2019 Hospit al distribution 10: [facility] width (RBC) [facility] [Ratio] ([id number]) Hematocrit (Bld) 44.4 % (no code) 36.1 - 50.3 % 05-07-2019 H ospital [Volume 10: [facility] fraction] [facility] (03105) Hemoglobin (Bld) 14.7 g/dL (no code) 12.1 - 17.2 g/dL 05-07-2019 Hospital [Mass/Vol] 10: [facility] (29565) LDH Lactate to 211 (no code) 05-07-2019 Hospital pyruvate 10: [facility] reaction [facility] [Catalytic ([id number]) activity/Vol] Lymphocytes 4.39 10*3/uL (H) 0.9 - 2.9 05-07-2019 Hospita l (Bld) [#/Vol] 10*3/uL 10: [facility] (67363) Lymphocytes/100 31.0 % (no code) 20 - 40 % 05-07-2019 Hospit al WBC (Bld) 10: [facility] (13447) MCH (RBC) 30.4 pg (no code) 27 - 31 pg 05-07-2019 Hospital [Entitic mass] 10: [facility] () MCHC (RBC) 33.1 g/dL (no code) 32 - 36 g/dL 05-07-2019 Hospital [Mass/Vol] 10: [facility] (10785) MCV (RBC) 91.9 fL (no code) 80 - 100 fL 05-07-2019 Hospital [Entitic vol] 10: [facility] (33778) Monocytes (Bld) 1.0 10*3/uL (H) 0.3 - 0.9 05-07-2019 Hosp ital [#/Vol] 10*3/uL 10: [facility] (22399) Monocytes/100 7.1 % (no code) 2 - 8 % 05-07-2019 Hospital WBC (Bld) 10: [facility] (12233) Neutrophils 8.55 10*3/uL (H) 1.7 - 7 10*3/uL 05-07-2019 H ospital (Bld) [#/Vol] 10: [facility] (47657) Neutrophils/100 60.3 % (no code) 40 - 60 % 05-07-2019 Hospit al WBC (Bld) 10: [facility] (59212) Platelet mean 9.8 fL (no code) 7.2 - 11.7 fL 05-07-2019 Hosp ital volume (Bld) 10: [facility] [Entitic vol] [facility] (71875) Platelets (Bld) 436 10*3/uL (H) 150 - 450 05-07-2019 Hosp ital [#/Vol] 10*3/uL 10: [facility] (15937) RBC (Bld) 4.83 10*6/uL (no code) 4.2 - 6.1 05-07-2019 Hospital [#/Vol] 10*6/uL 10: [facility] (45299) WBC (Bld) 14.18 10*3/uL (H) 3.5 - 10.5 05-07-2019 Hospita l [#/Vol] 10*3/uL 10: [facility] (25648) laboratory on 2019-04-30 Albumin BCG dye 5.0 (no code) 04-30-2019 Hospital [Mass/Vol] 06: [facility] (30810) ALP [Catalytic 110 U/L (no code) 44 - 147 U/L 04-30-2019 Hosp ital activity/Vol] 06: [facility] (74025) ALT [Catalytic 34 U/L (no code) 4 - 40 U/L 04-30-2019 Hospit al activity/Vol] 06: [facility] (19675) Anion gap 19 mmol/L (H) 3 - 11 mmol/L 04-30-2019 Hospital [Moles/Vol] 06: [facility] (15968) AST [Catalytic 21 U/L (no code) 10 - 34 U/L 04-30-2019 Hospi yolette activity/Vol] 06: [facility] (68092) Average glucose 239 mg/dL (H) 04-30-2019 Hospital Estimated from : [facility] glycated [facility] hemoglobin mass ([id number]) conc (Bld) Basophils (Bld) 0.1 10*3/uL (no code) 0 - 0.3 10*3/uL 04-30-2019 Hospital [#/Vol] 06:240 [facility] (77704) Basophils/100 0.60 % (no code) 0.5 - 1 % 04-30-2019 Hospital WBC (Bld) 06: [facility] (34374) Bilirubin 0.5 mg/dL (no code) 0.1 - 1.2 mg/dL 04-30-2019 Hospit al [Mass/Vol] 06: [facility] (11341) Calcium 10.6 mg/dL (H) 8.5 - 10.2 mg/dL 04-30-2019 Hosp ital [Mass/Vol] 06: [facility] (58813) Chloride 102 mmol/L (no code) 95 - 106 mmol/L 04-30-2019 Hospi yolette [Moles/Vol] 06: [facility] (91157) CK [Catalytic 72 U/L (no code) 04-30-2019 Hospital activity/Vol] 06: [facility] (12408) Cobalamin 324.00 pg/mL (no code) 200 - 900 pg/mL 04-30-2019 Hos pital (Vitamin B12) 06: [facility] [Mass/Vol] [facility] (09517) Creatinine 0.90 mg/dL (no code) 04-30-2019 Hospital [Mass/Vol] 06: [facility] (44330) Eosinophils 0.1 10*3/uL (no code) 0.05 - 0.5 04-30-2019 Hospita l (Bld) [#/Vol] 10*3/uL 06: [facility] (03940) Eosinophils/100 1.3 % (no code) 1 - 4 % 04-30-2019 Hospit al WBC (Bld) 06: [facility] (38470) Erythrocyte 13.6 % (no code) 11.6 - 14.6 % 04-30-2019 Hospit al distribution 06: [facility] width (RBC) [facility] [Ratio] (45324) Folate (Bld) 9.10 (no code) 04-30-2019 Hospital [Mass/Vol] 06: [facility] (34146) GFR/1.73 sq 63 (no code) 90 - 120 04-30-2019 Hospital M.predicted MDRD mL/min/{1.73_m2} mL/min/{1.73_m2} 06: [facility] (S/P/Bld) [Vol [facility] rate/Area] ([id number]) Globulin (S) 3.2 g/dL (no code) 2 - 3.5 g/dL 04-30-2019 Hospit al [Mass/Vol] 06: [facility] (03505) Glucose 261 mg/dL (H) 60 - 125 mg/dL 04-30-2019 Hospita l [Mass/Vol] 06: [facility] () HbA1c (Bld) 8.90 % (H) 0 - 5.7 % 04-30-2019 Hospital [Mass fraction] 06: [facility] (72987) HCO3 (P) 21 (L) 04-30-2019 Hospital [Moles/Vol] 06: [facility] (98465) Hematocrit (Bld) 48.5 % (H) 36.1 - 50.3 % 04-30-2019 H ospital [Volume 06: [facility] fraction] [facility] (79172) Hemoglobin (Bld) 16.1 g/dL (H) 12.1 - 17.2 g/dL 04-30-2019 Hospital [Mass/Vol] 06: [facility] (69932) Lymphocytes 2.96 10*3/uL (no code) 0.9 - 2.9 04-30-2019 Hospita l (Bld) [#/Vol] 10*3/uL 06: [facility] (49221) Lymphocytes/100 26.6 % (no code) 20 - 40 % 04-30-2019 Hospit al WBC (Bld) 06: [facility] (04268) MCH (RBC) 30.5 pg (no code) 27 - 31 pg 04-30-2019 Hospital [Entitic mass] 06: [facility] (94632) MCHC (RBC) 33.2 g/dL (no code) 32 - 36 g/dL 04-30-2019 Hospital [Mass/Vol] 06: [facility] (46305) MCV (RBC) 91.9 fL (no code) 80 - 100 fL 04-30-2019 Hospital [Entitic vol] 06: [facility] (64299) Monocytes (Bld) 0.7 10*3/uL (no code) 0.3 - 0.9 04-30-2019 Hosp ital [#/Vol] 10*3/uL 06: [facility] (71740) Monocytes/100 5.9 % (no code) 2 - 8 % 04-30-2019 Hospital WBC (Bld) 06: [facility] (95654) Neutrophils 7.28 10*3/uL (H) 1.7 - 7 10*3/uL 04-30-2019 H ospital (Bld) [#/Vol] 06: [facility] (97073) Neutrophils/100 65.6 % (no code) 40 - 60 % 04-30-2019 Hospit al WBC (Bld) 06: [facility] (10722) Osmolality Calc 292 (no code) 04-30-2019 Hospital [Osmolality] 06: [facility] (10689) Platelet mean 9.9 fL (no code) 7.2 - 11.7 fL 04-30-2019 Hosp ital volume (Bld) 06: [facility] [Entitic vol] [facility] (26712) Platelets (Bld) 447 10*3/uL (H) 150 - 450 04-30-2019 Hosp ital [#/Vol] 10*3/uL 06: [facility] (57535) Potassium 4.9 mmol/L (no code) 3.7 - 5.2 mmol/L 04-30-2019 Hosp ital [Moles/Vol] 06: [facility] (26435) Protein 8.2 g/dL (no code) 6.4 - 8.3 g/dL 04-30-2019 Hospita l [Mass/Vol] 06: [facility] (02129) RBC (Bld) 5.28 10*6/uL (H) 4.2 - 6.1 04-30-2019 Hospital [#/Vol] 10*6/uL 06: [facility] (33458) Sodium 137 mmol/L (no code) 135 - 145 mmol/L 04-30-2019 Hosp ital [Moles/Vol] 06: [facility] (10509) TSH Qn 1.63 (no code) 04-30-2019 Hospital 06: [facility] (40437) Urea nitrogen 15 mg/dL (no code) 7 - 20 mg/dL 04-30-2019 Hospi yolette [Mass/Vol] 06: [facility] (65760) WBC (Bld) 11.11 10*3/uL (H) 3.5 - 10.5 04-30-2019 Hospita l [#/Vol] 10*3/uL 06: [facility] (90622) not yet categorized on 2019-02-20 Amikacin <=16 (S) Hospital [facility] (71830) Amoxicillin/K <=8/4 (S) Hospital Clavulanate [facility] (44446) Ampicillin <=8 (S) Hospital [facility] (55560) Ampicillin/Sulba <=8/4 (S) Hospital ctam [facility] (71936) Aztreonam <=8 (S) Hospital [facility] (96473) Cefazolin <=8 (S) Hospital [facility] (62752) Cefepime <=8 (S) Hospital [facility] (80272) Cefotaxime <=2 (S) Hospital [facility] (13482) Cefotaxime/K <=0.5 (no code) Hospital Clavulanate [facility] (68329) Cefoxitin <=8 (S) Hospital [facility] (98019) Ceftazidime <=1 (S) Hospital [facility] (87818) Ceftazidime/K <=0.25 (no code) Hospital [facility] (98289) Ceftriaxone <=8 (S) Hospital [facility] (37897) Cefuroxime <=4 (S) Hospital [facility] (69630) Cephalothin <=8 (S) Hospital [facility] (43123) Ciprofloxacin <=1 (S) Hospital [facility] (82650) CULTURE SOURCE clinic (no code) 02-20-2019 Hospital collection/voide 18:30-0400 [facility] d urine [facility] (53385) Ertapenem <=1 (S) Hospital [facility] (81416) FINAL CULTURE Escherichia coli (no code) 02-20-2019 Hospita l RESULTS (Isolate 1) 18:30-0400 [facility] (26411) Gentamicin <=4 (S) Hospital [facility] (21371) Imipenem <=4 (S) Hospital [facility] (20409) Levofloxacin <=2 (S) Hospital [facility] (98979) MEDIA PLATED Setup at 18:44 (no code) 02-20-2019 Hospital on 02/20/2019 18:30-0400 [facility] (38763) Nitrofurantoin <=32 (S) Hospital [facility] (37100) Piperacillin <=16 (S) Hospital [facility] (00723) PRELIM CULTURE Negative (no code) 02-20-2019 Hospital RESULTS 18:30-0400 [facility] (47090) Tetracycline <=4 (S) Hospital [facility] (75507) Tigecycline <=2 (S) Hospital [facility] (74626) Tobramycin <=4 (S) Hospital [facility] (13629) Trimethoprim/ <=2/38 (S) Hospital Sulfamethoxazole [facility] (80336) urinalysis on 2018-12-11 Clarity (U) Clear (no code) 12-11-2018 Hospital 12: [facility] (55619) Color (U) Yellow (no code) 12-11-2018 Hospital 12: [facility] (57242) Epithelial 10-20/HPF (A) 12-11-2018 Hospital cells.squamous 12: [facility] LM.HPF (Urine [facility] sed) [#/Area] ([id number]) Leukocyte Trace (A) 12-11-2018 Hospital esterase Test 12: [facility] strip Ql (U) [facility] (81632) Protein (U) Negative (no code) 0 - 20 mg/dL 12-11-2018 Hospita l [Mass/Vol] 12: [facility] (06651) RBC LM.HPF Negative (no code) 0 - 4 /[HPF] 12-11-2018 Hospital (Urine sed) 12: [facility] [#/Area] [facility] (90180) Specific gravity 1.025 (no code) 12-11-2018 Hospital (U) [Rel 12: [facility] density] [facility] (31507) WBC LM.HPF 0-2/HPF (A) 12-11-2018 Hospital (Urine sed) 12: [facility] [#/Area] [facility] (20451) thyroid on 2018-12-11 Free T4 0.87 ng/dL (no code) 0.9 - 2.2 ng/dL 12-11-2018 Hospi yolette [Mass/Vol] 12: [facility] (92457) TSH Qn 1.18 (no code) 12-11-2018 Hospital 12: [facility] (98379) other on 2018-12-11 Albumin (U) 60.0 (H) 12-11-2018 Hospital [Mass/Vol] 12: [facility] (53333) Albumin BCG dye 4.1 (no code) 12-11-2018 Hospital [Mass/Vol] 12: [facility] (39917) Average glucose 222 (H) 12-11-2018 Hospital Estimated from 12: [facility] glycated [facility] hemoglobin mass (71783) conc (Bld) Bacteria LM Ql Trace (A) 12-11-2018 Hospital (Urine sed) 12: [facility] (69305) Bilirubin N/A (A) 12-11-2018 Hospital Confirm Ql (U) 12: [facility] (11080) Bilirubin Ql (U) Negative (no code) 12-11-2018 Hospital 12: [facility] (83601) Cholesterol in 94 mg/dL (H) 12-11-2018 Hospital VLDL [Mass/Vol] 12: [facility] (91823) Cholesterol.tota 5.8 {ratio} (no code) 12-11-2018 Hospital l/Cholesterol in 12: [facility] HDL [Mass ratio] [facility] (40634) Cobalamin 282.00 pg/mL (no code) 200 - 900 pg/mL 12-11-2018 Hos pital (Vitamin B12) 12: [facility] [Mass/Vol] [facility] (22416) Erythrocyte 13.4 % (no code) 11.6 - 14.6 % 12-11-2018 Hospit al distribution 12: [facility] width (RBC) [facility] [Ratio] (99903) GFR/1.73 sq 74 (no code) 90 - 120 12-11-2018 Hospital M.predicted MDRD mL/min/{1.73_m2} mL/min/{1.73_m2} 12: [facility] (S/P/Bld) [Vol [facility] rate/Area] ([id number]) Globulin (S) 2.7 g/dL (no code) 2 - 3.5 g/dL 12-11-2018 Hospit al [Mass/Vol] 12: [facility] (38377) Glucose Test Negative (no code) 12-11-2018 Hospital strip (U) 12: [facility] [Mass/Vol] [facility] (99178) HCO3 (P) 23 (no code) 12-11-2018 Hospital [Moles/Vol] 12: [facility] (06654) Hemoglobin Ql Negative (no code) 12-11-2018 Hospital (U) 12: [facility] (59266) Ketones (U) Negative (no code) 12-11-2018 Hospital [Mass/Vol] 12: [facility] (74861) MCHC (RBC) 32.7 g/dL (no code) 32 - 36 g/dL 12-11-2018 Hospital [Mass/Vol] 12: [facility] (63742) Nitrite Ql (U) Negative (no code) 12-11-2018 Hospital 12: [facility] (26157) Osmolality Calc 294 (no code) 12-11-2018 Hospital [Osmolality] 12: [facility] (22364) pH (U) 5.0 [pH] (no code) 4.6 - 8 [pH] 12-11-2018 Hospital 12: [facility] (82026) Platelet mean 9.6 fL (no code) 7.2 - 11.7 fL 12-11-2018 Hosp ital volume (Bld) 12: [facility] [Entitic vol] [facility] (39736) Urobilinogen Qn 0.2 (A) 12-11-2018 Hospital (U) {Jesus'U}/dL 12: [facility] (55893) metabolic panel on 2018-12-11 ALP [Catalytic 116 U/L (no code) 44 - 147 U/L 12-11-2018 Hosp ital activity/Vol] 12: [facility] (94287) ALT [Catalytic 40 U/L (no code) 4 - 40 U/L 12-11-2018 Hospit al activity/Vol] 12: [facility] (34090) Anion gap 18 mmol/L (H) 3 - 11 mmol/L 12-11-2018 Hospital [Moles/Vol] 12: [facility] (02557) AST [Catalytic 23 U/L (no code) 10 - 34 U/L 12-11-2018 Hospi yolette activity/Vol] 12: [facility] (68930) Bilirubin 0.4 mg/dL (no code) 0.1 - 1.2 mg/dL 12-11-2018 Hospit al [Mass/Vol] 12: [facility] (20928) Calcium 9.5 mg/dL (no code) 8.5 - 10.2 mg/dL 12-11-2018 Hospi yolette [Mass/Vol] 12: [facility] (13647) Chloride 103 mmol/L (no code) 95 - 106 mmol/L 12-11-2018 Hospi yolette [Moles/Vol] 12: [facility] (62004) Creatinine 0.78 mg/dL (no code) 12-11-2018 Hospital [Mass/Vol] 12: [facility] (04758) Glucose 195 mg/dL (H) 60 - 125 mg/dL 12-11-2018 Hospita l [Mass/Vol] 12: [facility] (30935) HbA1c (Bld) 8.40 % (H) 0 - 5.7 % 12-11-2018 Hospital [Mass fraction] 12: [facility] (11912) Potassium 4.6 mmol/L (no code) 3.7 - 5.2 mmol/L 12-11-2018 Hosp ital [Moles/Vol] 12: [facility] (10091) Protein 6.8 g/dL (no code) 6.4 - 8.3 g/dL 12-11-2018 Hospita l [Mass/Vol] 12: [facility] (93847) Sodium 139 mmol/L (no code) 135 - 145 mmol/L 12-11-2018 Hosp ital [Moles/Vol] 12: [facility] (78955) Urea nitrogen 18 mg/dL (no code) 7 - 20 mg/dL 12-11-2018 Hospi yolette [Mass/Vol] 12: [facility] (79316) hematology on 2018-12-11 Basophils (Bld) 0.1 10*3/uL (no code) 0 - 0.3 10*3/uL 12-11-2018 Hospital [#/Vol] 12: [facility] (91076) Basophils/100 0.70 % (no code) 0.5 - 1 % 12-11-2018 Hospital WBC (Bld) 12: [facility] (14162) Eosinophils 0.2 10*3/uL (no code) 0.05 - 0.5 12-11-2018 Hospita l (Bld) [#/Vol] 10*3/uL 12: [facility] (19055) Eosinophils/100 1.5 % (no code) 1 - 4 % 12-11-2018 Hospit al WBC (Bld) 12: [facility] (30001) Hematocrit (Bld) 44.0 % (no code) 36.1 - 50.3 % 12-11-2018 H ospital [Volume 12: [facility] fraction] [facility] (44578) Hemoglobin (Bld) 14.4 g/dL (no code) 12.1 - 17.2 g/dL 12-11-2018 Hospital [Mass/Vol] 12: [facility] (95530) Lymphocytes 2.84 10*3/uL (no code) 0.9 - 2.9 12-11-2018 Hospita l (Bld) [#/Vol] 10*3/uL 12: [facility] (19023) Lymphocytes/100 27.6 % (no code) 20 - 40 % 12-11-2018 Hospit al WBC (Bld) 12: [facility] (90841) MCH (RBC) 30.4 pg (no code) 27 - 31 pg 12-11-2018 Hospital [Entitic mass] 12: [facility] ([id number]) MCV (RBC) 92.8 fL (no code) 80 - 100 fL 12-11-2018 Hospital [Entitic vol] 12: [facility] ([id number]) Monocytes (Bld) 0.8 10*3/uL (no code) 0.3 - 0.9 12-11-2018 Hosp ital [#/Vol] 10*3/uL 12: [facility] ([id number]) Monocytes/100 7.6 % (no code) 2 - 8 % 12-11-2018 Hospital WBC (Bld) 12: [facility] ([id number]) Neutrophils 6.45 10*3/uL (no code) 1.7 - 7 10*3/uL 12-11-2018 H ospital (Bld) [#/Vol] 12: [facility] ([id number]) Neutrophils/100 62.6 % (no code) 40 - 60 % 12-11-2018 Hospit al WBC (Bld) 12: [facility] ([id number]) Platelets (Bld) 382 10*3/uL (no code) 150 - 450 12-11-2018 Hosp ital [#/Vol] 10*3/uL 12: [facility] ([id number]) RBC (Bld) 4.74 10*6/uL (no code) 4.2 - 6.1 12-11-2018 Hospital [#/Vol] 10*6/uL 12: [facility] ([id number]) WBC (Bld) 10.29 10*3/uL (H) 3.5 - 10.5 12-11-2018 Hospita l [#/Vol] 10*3/uL 12: [facility] ([id number]) cardiac on 2018-12-11 Cholesterol 175 mg/dL (no code) 180 - 200 mg/dL 12-11-2018 Hosp ital [Mass/Vol] 12: [facility] ([id number]) Cholesterol in 30 mg/dL (no code) 12-11-2018 Hospital HDL [Mass/Vol] 12:040400 [facility] (85021) Cholesterol in 51 Unable to (no code) 12-11-2018 Hospital LDL [Mass/Vol] calculate due to 12:040400 [facility] elevated [facility] triglycerides ([id number]) Triglyceride 472 mg/dL (HH) 0 - 150 mg/dL 12-11-2018 Hospi yolette [Mass/Vol] 12:040400 [facility] ([id number]) other on 2018-08-02 M. pneumoniae Ab Negative (no code) 08-02-2018 Hospital Ql (S) 17:110500 [facility] ([id number]) urinalysis on 2018-03-25 Bacteria LM.HPF 1+ (A) 03-25-2018 Hospital #/area (Urine 09:40-0400 [facility] [place]) [facility] (84345) Bilirubin Ql (U) Negative (no code) 03-25-2018 Hospital 09:400400 [facility] (54708) Bilirubin Ql (U) 0.4 (no code) 03-25-2018 no inform ation 09:400400 Clarity Nom (U) Clear (no code) 03-25-2018 Hospital 09:400400 [facility] (48081) Color Nom (U) Yellow (no code) 03-25-2018 Hospital 09:400400 [facility] (20937) Hemoglobin Test 2+ (A) 03-25-2018 Hospital strip Ql (U) 09:400400 [facility] (48730) Leukocyte Trace (A) 03-25-2018 Hospital esterase Test 09:400400 [facility] strip Ql (U) [facility] (76044) Nitrite Test Negative (no code) 03-25-2018 Hospital strip Ql (U) 09:400400 [facility] (36504) pH Test strip 5.0 [pH] (no code) 4.6 - 8 [pH] 03-25-2018 Hospi yolette (U) 09:400400 [facility] (48930) Protein mass 1+ (A) 03-25-2018 Hospital conc (U) 09:40-0400 [facility] (31655) RBC LM.HPF 20-40/HPF (A) 03-25-2018 Hospital #/area (Urine 09:40-0400 [facility] sed) [facility] (33648) Specific gravity >=1.030 (A) 03-25-2018 Hospital Relative Density 09:40-0400 [facility] (U) [facility] (31416) Urobilinogen 0.2 (A) 0.2 - 1 03-25-2018 Hospital Test strip Qn {Jesus'U}/dL {Jesus'U}/dL 09:40 Distr [facility] of (U) [facility] (30102) WBC LM.HPF 10-20/HPF (A) 03-25-2018 Hospital #/area (Urine 09:40-0400 [facility] [place]) [facility] ([id number]) thyroid on 2018-03-25 Thyrotropin Qn 1.99 (no code) 03-25-2018 no informat ion 09:40-0400 other on 2018-03-25 Average glucose 205 (H) 03-25-2018 Hospital Estimated from 09:40-0400 [facility] glycated [facility] hemoglobin mass ([id number]) conc (Bld) Bilirubin N/A (A) 03-25-2018 Hospital [Presence] in 09:40-0400 [facility] Urine by [facility] Confirmatory ([id number]) method Cholesterol in 84 mg/dL (H) 03-25-2018 no informat ion VLDL mass conc 09:40-0400 Cholesterol.tota 5.0 {ratio} (no code) 03-25-2018 no inform ation l/Cholesterol in 09:40-0400 HDL mass ratio CULTURE SOURCE clean catch (no code) 03-25-2018 no informat ion reflex 09:40-0400 FINAL CULTURE 50,000-100,000 (no code) 03-25-2018 no inform ation RESULTS Gram Positive 09:40-040 Mixed Demetrice Probable Skin Contaminant No Further Workup done Globulin 3.0 g/dL (no code) 2 - 3.5 g/dL 03-25-2018 no inform ation Calculated mass 09:40-0400 conc (S) Glucose Negative (no code) 03-25-2018 Hospital [Mass/volume] in 09:40-0400 [facility] Urine by Test [facility] strip ([id number]) Hemoglobin 7.90 (H) 03-25-2018 Hospital A1c/Hemoglobin.t 09:40-0400 [facility] otal in Blood by [facility] calculation ([id number]) Ketones mass Negative (no code) 03-25-2018 Hospital conc (U) 09:40-0400 [facility] (55652) PRELIM CULTURE 50,000-100,000 (no code) 03-25-2018 no infor mation RESULTS Gram Positive 09:40 Mixed Demetrice Probable Skin Contaminant Urine Volume Urine Volume (no code) 03-25-2018 Hospital Sufficient 09:40-040 [facility] (10mL) [facility] (71551) no information Culture to (A) 03-25-2018 Hospital follow 09:40-040 [facility] (01689) metabolic panel on 2018-03-25 Albumin mass 4.6 g/dL (no code) 3.4 - 5.4 g/dL 03-25-2018 no i nformation conc 09:40-0400 ALP enzyme 118 U/L (no code) 44 - 147 U/L 03-25-2018 no infor mation act/vol 09:40-0400 ALT enzyme 33 U/L (no code) 4 - 40 U/L 03-25-2018 no informa tion act/vol 09:40-0400 Anion gap 3 17 mmol/L (H) 3 - 11 mmol/L 03-25-2018 no inf ormation molar conc 09:40-0400 AST enzyme 30 U/L (no code) 10 - 34 U/L 03-25-2018 no inform ation act/vol 09:40-0400 Calcium mass 9.6 mg/dL (no code) 8.5 - 10.2 mg/dL 03-25-2018 no information conc 09:40-0400 Chloride molar 106 mmol/L (no code) 95 - 106 mmol/L 03-25-2018 no information conc 09:40-0400 CO2 molar conc 21 mmol/L (L) 23 - 29 mmol/L 03-25-2018 no information 09:40-0400 Creatinine mass 0.77 mg/dL (no code) 03-25-2018 no informa tion conc 09:40-0400 GFR/1.73 sq M 75 (no code) 90 - 120 03-25-2018 no infor mation predicted among mL/min/{1.73_m2} mL/min/{1.73_m2} 09:40-040 0 non-blacks MDRD vol rate/area (S/P/Bld) Glucose mass 220 mg/dL (H) 60 - 125 mg/dL 03-25-2018 no i nformation conc 09:40-0400 Osmolality 294 mosm/kg (no code) 275 - 295 03-25-2018 no inform ation mosm/kg 09:40-0400 Potassium molar 4.9 mmol/L (no code) 3.7 - 5.2 mmol/L 03-25-2018 no information conc 09:40-0400 Protein mass 7.6 g/dL (no code) 6.4 - 8.3 g/dL 03-25-2018 no i nformation conc 09:40-0400 Sodium molar 139 mmol/L (no code) 135 - 145 mmol/L 03-25-2018 n o information conc 09:40-0400 Urea nitrogen 15 mg/dL (no code) 7 - 20 mg/dL 03-25-2018 no in formation mass conc 09:40-0400 cardiac on 2018-03-25 Cholesterol in 35 mg/dL (no code) 03-25-2018 no informat ion HDL mass conc 09:40-0400 Cholesterol in Unable to (no code) 03-25-2018 no informat ion LDL mass conc calculate due to 09:40-0400 elevated triglycerides Cholesterol mass 174 mg/dL (no code) 180 - 200 mg/dL 03-25-2018 no information conc 09:40-0400 Triglyceride 418 mg/dL (HH) 0 - 150 mg/dL 03-25-2018 no in formation mass conc 09:40-0400 venous blood hemoglobin measurement (mass/volume) on 2018-02-10 Hemoglobin mass 14.4 g/dL (no code) 12.1 - 17.2 g/dL [facility] conc (Bld) [facility] ([id number]) urine urobilinogen measurement by automated test strip (mass/volume) on 2018-02-10 Urobilinogen NORMAL (no code) [facility] Test strip [facility] ([facility] ([id number]) urine total bilirubin detection by test strip on 2018-02-10 Bilirubin Ql (U) Negative (no code) Via [facility] ([id number]) urine protein assay by test strip, semi-quantitativ e on 2018-02-10 Protein Test 1+ (*) Via [facility] strip () [facility] ([id number]) urine ph measurement by test strip on 2018-02-10 pH Test strip 5 [pH] (no code) 4.6 - 8 [pH] Via [facility] () [facility] ([id number]) urine nitrite detection by test strip on 2018-02-10 Nitrite Test Negative (no code) Via [facility] strip ([facility] ([id number]) urine ketones detection by automated test strip on 2018-02-10 Ketones Negative (no code) Via [facility] Automated test Hospital strip Ql () [facility] (54978) urine glucose detection by automated test strip on 2018-02-10 Glucose Negative (no code) Via [facility] Automated test Hospital strip Ql () [facility] ([id number]) urine color determination on 2018-02-10 Color Nom (U) MARIJA (*) Via [facility] (65871) urine clarity determination on 2018-02-10 Clarity Nom (U) CLEAR (no code) Via [facility] ([id number]) squamous epithelial cells detection in urine sediment by light microscopy on 2018-02-10 Epithelial no information (no code) Via [facility] cells.squamous [facility] LM Ql (Urine [facility] sed) ([id number]) specific gravity of urine by test strip on 2018-02-10 Specific gravity 1.025 (*) Via [facility] Relative Density [facility] ([facility] (64924) serum or plasma urea nitrogen/creatin ine mass ratio on 2018-02-10 Urea 16 mg/mg (no code) 6 - 22 mg/mg Via [facility] nitrogen/Creatin Hospital ine mass ratio [facility] ([id number]) serum or plasma urea nitrogen measurement (mass/volume) on 2018-02-10 Urea nitrogen 13 mg/dL (no code) 7 - 20 mg/dL Via [facility] (58036) serum or plasma triglyceride measurement (mass/volume) on 2018-02-10 Triglyceride 423 mg/dL (H) 0 - 150 mg/dL Via [facility] (69186) serum or plasma total bilirubin measurement (mass/volume) on 2018-02-10 Bilirubin mass 0.6 mg/dL (no code) 0.1 - 1.2 mg/dL Via [facility] (44589) serum or plasma sodium measurement (moles/volume) on 2018-02-10 Sodium molar 138 mmol/L (no code) 135 - 145 mmol/L Via [facility] ([id number]) serum or plasma protein measurement (mass/volume) on 2018-02-10 Protein mass 7.5 g/dL (no code) 6.4 - 8.3 g/dL Via [facility] (89804) serum or plasma potassium measurement (moles/volume) on 2018-02-10 Potassium molar 4.0 mmol/L (no code) 3.7 - 5.2 mmol/L Via [facility] ([id number]) serum or plasma glucose measurement (mass/volume) on 2018-02-10 Glucose mass 266 mg/dL (H) 60 - 125 mg/dL Via [facility] ([id number]) serum or plasma creatinine measurement with calculation of estimated glomerular filtration rate on 2018-02-10 GFR/1.73 sq M no information (no code) Via [facility] non-blacks MDRD [facility] vol rate/area ([id number]) (S/P/Bld) serum or plasma creatinine measurement (mass/volume) on 2018-02-10 Creatinine mass 0.79 mg/dL (no code) Via [facility] ([id number]) serum or plasma cholesterol measurement (mass/volume) on 2018-02-10 Cholesterol mass 175 mg/dL (no code) 180 - 200 mg/dL Via [facility] (49298) serum or plasma cholesterol in vldl measurement (mass/volume) on 2018-02-10 Cholesterol in 85 mg/dL (H) Via [facility] VLDL [facility] ([id number]) serum or plasma cholesterol in hdl measurement (mass/volume) on 2018-02-10 Cholesterol in 31 mg/dL (L) Via [facility] HDL [facility] (50798) serum or plasma chloride measurement (moles/volume) on 2018-02-10 Chloride molar 105 mmol/L (no code) 95 - 106 mmol/L Via [facility] (22657) serum or plasma calcium measurement (mass/volume) on 2018-02-10 Calcium mass 9.6 mg/dL (no code) 8.5 - 10.2 mg/dL Via [facility] ([id number]) serum or plasma aspartate aminotransferase measurement (enzymatic activity/volume) on 2018-02-10 AST enzyme 24 U/L (no code) 10 - 34 U/L Via [facility] (76606) serum or plasma anion gap determination (moles/volume) on 2018-02-10 Anion gap 3 12 mmol/L (no code) 3 - 11 mmol/L Via [facility] molar [facility] (76003) serum or plasma alkaline phosphatase measurement (enzymatic activity/volume) on 2018-02-10 ALP enzyme 86 U/L (no code) 44 - 147 U/L Via [facility] ([id number]) serum or plasma albumin measurement (mass/volume) on 2018-02-10 Albumin mass 4.5 g/dL (no code) 3.4 - 5.4 g/dL Via [facility] ([id number]) serum or plasma alanine aminotransferase measurement (enzymatic activity/volume) on 2018-02-10 ALT enzyme 36 U/L (no code) 4 - 40 U/L Via [facility] ([id number]) prothrombin time (pt) in platelet poor plasma by coagulation assay on 2018-02-10 Prothrombin time 12.7 s (no code) 9.4 - 12.5 s Via [facility] (PT) Coag time [facility] ([facility]) [facility] ([id number]) mucus detection in urine sediment by light microscopy on 2018-02-10 Mucus LM Ql Negative (no code) Via [facility] (Urine sed) [facility] ([id number]) leukocyte esterase on 2018-02-10 Leukocyte 1+ (*) Via [facility] esterase Test Hospital strip Ql (U) [facility] ([id number]) inr in platelet poor plasma or blood by coagulation assay on 2018-02-10 INR Coag RelTime 1.0 (no code) Via [facility] (Platelet poor Hospital plasma or blood) [facility] ([id number]) hyaline casts detection in urine sediment by light microscopy on 2018-02-10 Hyaline casts LM no information (*) [facility] Ql (Urine sed) [facility] ([id number]) erythrocytes detection in urine sediment by light microscopy on 2018-02-10 RBC LM Ql (Urine 5+ (*) Via [facility] sed) [facility] (67272) crystals detection in urine sediment by light microscopy on 2018-02-10 Crystals LM Ql NONE (no code) Via [facility] (Urine sed) [facility] ([id number]) complete urinalysis with reflex to culture on 2018-02-10 Complete NO (no code) Via [facility] urinalysis with Hospital reflex to [facility] culture ([id number]) cholesterol in ldl [mass/volume] in serum or plasma by direct assay on 2018-02-10 Cholesterol in 76 mg/dL (no code) 0 - 100 mg/dL Via [facility] sti LDL mass conc [facility] (85967) casts detection in urine sediment by light microscopy on 2018-02-10 Casts LM Ql PRESENT (no code) Via [facility] (Urine sed) [facility] ([id number]) carbon dioxide on 2018-02-10 CO2 molar conc 21 mmol/L (no code) 23 - 29 mmol/L Via [facility] (04058) calcium measurement corrected for albumin on 2018-02-10 Calcium mass 9.2 mg/dL (no code) 8.5 - 10.2 mg/dL Via [facility] conc [facility] (32890) blood leukocytes automated count (number/volume) on 2018-02-10 WBC Auto #/vol 8.7 10*3/uL (no code) 3.5 - 10.5 Via [facility] (d) 10*3/uL [facility] (77456) blood hematocrit (volume fraction) on 2018-02-10 Hematocrit Auto 42 % (no code) 36.1 - 50.3 % Via [facility] Volume Fraction [facility] ([facility]) [facility] ([id number]) blood erythrocytes automated count (number/volume) on 2018-02-10 RBC Auto #/vol 4.79 10*6/uL (no code) 4.2 - 6.1 Via [facility] (d) 10*6/uL [facility] (73012) bacteria detection in urine sediment by light microscopy on 2018-02-10 Bacteria LM Ql TRACE (no code) Via [facility] (Urine sed) [facility] (55243) automated urine sediment leukocyte count by microscopy (number/high power field) on 2018-02-10 WBC LM.HPF no information (*) Via [facility] #/area (Urine Hospital sed) [facility] ([id number]) automated urine sediment erythrocyte count by microscopy (number/high power field) on 2018-02-10 RBC LM.HPF no information (*) [facility] #/area (Urine Hospital sed) [facility] ([id number]) automated erythrocyte mean corpuscular volume on 2018-02-10 MCV Auto Entitic 88 fL (no code) 80 - 100 fL Via [facility] st[facility] volume (RBC) [facility] ([id number]) automated erythrocyte mean corpuscular hemoglobin concentration measurement (mass/volume) on 2018-02-10 MCHC Auto mass 34 g/dL (no code) 32 - 36 g/dL Via [facility] ti conc (RBC) [facility] (65197) automated erythrocyte mean corpuscular hemoglobin (mass per erythrocyte) on 2018-02-10 MCH Auto Entitic 30 pg (no code) 27 - 31 pg Via [facility] ti mass (RBC) [facility] ([id number]) automated erythrocyte distribution width ratio on 2018-02-10 Erythrocyte 13.9 % (no code) 11.6 - 14.6 % Via [facility] distribution Hospital width Auto Ratio [facility] (RBC) ([id number]) automated blood platelet mean volume measurement on 2018-02-10 Platelet mean 9.7 fL (no code) 7.2 - 11.7 fL Via [facility] ti volume Auto Hospital Entitic volume [facility] (Bld) ([id number]) automated blood platelet count (count/volume) on 2018-02-10 Platelets Auto 431 10*3/uL (H) 150 - 450 Via [facility] #/vol (d) 10*3/uL [facility] ([id number]) activated partial thromboplastin time (aptt) in platelet poor plasma bycoagulation assay on 2018-02-10 aPTT Coag time 30 s (no code) 25 - 35 s Via [facility] (d) [facility] ([id number]) other on 2016-11-13 Albumin BCG dye 4.3 (no code) 11-13-2016 Not Availa ble [Mass/Vol] 12:02-0400 ([id number]) GFR/1.73 sq 71 (no code) 90 - 120 11-13-2016 Not Availa ble M.predicted MDRD mL/min/{1.73_m2} mL/min/{1.73_m2} 12: () (S/P/Bld) [Vol rate/Area] Globulin (S) 3.8 g/dL (H) 2 - 3.5 g/dL 11-13-2016 Not Av ailable [Mass/Vol] 12: (00237) HCO3 (P) 22 (no code) 11-13-2016 Not Available [Moles/Vol] : () Osmolality Calc 292 (no code) 11-13-2016 Not Availa ble [Osmolality] : (85470) metabolic panel on 2016-11-13 ALP [Catalytic 79 U/L (no code) 44 - 147 U/L 11-13-2016 Not Available activity/Vol] : () ALT [Catalytic 29 U/L (no code) 4 - 40 U/L 11-13-2016 Not Av ailable activity/Vol] 12: () Anion gap 17 mmol/L (H) 3 - 11 mmol/L 11-13-2016 Not Avai lable [Moles/Vol] 12: (46061) AST [Catalytic 21 U/L (no code) 10 - 34 U/L 11-13-2016 Not A vailable activity/Vol] 12: () Bilirubin 0.4 mg/dL (no code) 0.1 - 1.2 mg/dL 11-13-2016 Not Av ailable [Mass/Vol] : () Calcium 9.6 mg/dL (no code) 8.5 - 10.2 mg/dL 11-13-2016 Not A vailable [Mass/Vol] 12: (47990) Chloride 105 mmol/L (no code) 95 - 106 mmol/L 11-13-2016 Not A vailable [Moles/Vol] : (09634) Creatinine 0.81 mg/dL (no code) 11-13-2016 Not Available [Mass/Vol] : (48562) Glucose 150 mg/dL (H) 60 - 125 mg/dL 11-13-2016 Not Justina ilable [Mass/Vol] 12: (40363) Potassium 5.0 mmol/L (no code) 3.7 - 5.2 mmol/L 11-13-2016 Not Available [Moles/Vol] : (95347) Protein 8.1 g/dL (no code) 6.4 - 8.3 g/dL 11-13-2016 Not Justina ilable [Mass/Vol] : (05849) Sodium 139 mmol/L (no code) 135 - 145 mmol/L 11-13-2016 Not Available [Moles/Vol] : (91626) Urea nitrogen 20 mg/dL (no code) 7 - 20 mg/dL 11-13-2016 Not A vailable [Mass/Vol] : (22687) Vital Signs The data below is from unstructured sources Vital Response Date/Time Pulse Rate (adult) 79 bpm (60 - 90) 12/01/2016 12:58pm Respiratory Rate 18 bpm (12 - 24) 12/01/2016 12:58pm O2 Sat by Pulse Oximetry 97 % (88 - 100) 12/01/2016 12:58pm Blood Pressure 141/77 mm Hg 12/01/2016 12:58pm Blood Pressure Mean 98 mm Hg 12/01/2016 12:58pm Height (Feet) 5 feet 12/2016 11:49am Height (Inches) 6.50 inches 12/31/2016 11:49am Height (Calculated Centimeters) 168. 607893 cm 12/31/2016 11:49am Weight (Pounds) 288 pounds 12/31/2016 11:49am Weight (Ounces) 0.0 oz 0 12/31/2016 11:49am Weight (Calculated Grams) 517542.60 gm 12/31/2016 11:49am Weight (Calculated Kilograms) 130.63 4604 kilograms 12/31/2016 11:49am Calculated BMI 45.8 12/2016 11:49am Vital Response Date/Time Temperature (Fahrenheit) 97.6 degree s F (97.6 - 99.5) 01/04/2017 2:40pm Temperature (Calculated Celsius) 36. 77115 degrees C (36.4 - 37.5) 01/04/2017 2:40pm Temperature Source Temporal 01/04/2017 2:40pm Pulse Rate (adult) 76 bpm (60 - 90) 01/04/2017 2:40pm Respiratory Rate 18 bpm (12 - 24) 01/04/2017 2:40pm O2 Sat by Pulse Oximetry 97 % (88 - 100) 01/04/2017 2:40pm Blood Pressure 135/81 mm Hg 01/04/2017 2:40pm Blood Pressure Mean 83 mm Hg 01/04/2017 10:35am Pain Numeric Pain Scale 0-No Pain 01/04/2017 2:40pm Pain Intensity 0 2016 2:30pm Height (Feet) 5 feet 12/2016 11:49am Height (Inches) 6.50 inches 12/31/2016 11:49am Height (Calculated Centimeters) 168. 984243 cm 12/31/2016 11:49am Weight (Pounds) 288 pounds 12/31/2016 11:49am Weight (Ounces) 0.0 oz 0 12/31/2016 11:49am Weight (Calculated Grams) 399435.60 gm 12/31/2016 11:49am Weight (Calculated Kilograms) 130.63 4604 kilograms 12/31/2016 11:49am Calculated BMI 45.8 12/2016 11:49am Vital Response Date/Time Temperature (Fahrenheit) 97.2 degree s F (97.6 - 99.5) 02/10/2018 9:25am Temperature (Calculated Celsius) 36. 40503 degrees C (36.4 - 37.5) 02/10/2018 9:25am Temperature Source Temporal 02/10/2018 12:00pm Pulse Rate (adult) 65 bpm (60 - 90) 02/10/2018 12:00pm Respiratory Rate 18 bpm (12 - 24) 02/10/2018 12:00pm O2 Sat by Pulse Oximetry 95 % (88 - 100) 02/10/2018 12:00pm Blood Pressure 128/76 mm Hg 02/10/2018 12:00pm Blood Pressure Mean 93 mm Hg (65 - 110) 02/10/2018 12:00pm Pain Numeric Pain Scale 0-No Pain 02/10/2018 12:16pm Height (Feet) 5 feet 7:43am Height (Inches) 6.00 inches 02/10/2018 7:43am Height (Calculated Centimeters) 167. 400262 cm 02/10/2018 7:43am Weight (Pounds) 284 pounds 02/10/2018 7:43am Weight (Ounces) 0.0 oz 0 02/10/2018 7:43am Weight (Calculated Grams) 018274.23 gm 02/10/2018 7:43am Weight (Calculated Kilograms) 128.82 0234 kilograms 02/10/2018 7:43am Calculated BMI 45.8 01/25 7:43am Weight Measurement Method Standing Scale 02/01/2018 7:33am Capillary Refill Capillary Refill Less Than 3 Seconds 02/10/2018 12:00pm Vital Response Date/Time Height (Feet) 5 feet 11:33am Height (Inches) 6.00 inches 12/14/2018 11:33am Height (Calculated Centimeters) 167. 679440 cm 12/14/2018 11:33am Weight (Pounds) 280 pounds 12/14/2018 11:33am Weight (Ounces) 0.0 oz 0 12/14/2018 11:33am Weight (Calculated Grams) 299280.865 gm 12/14/2018 11:33am Weight (Calculated Kilograms) 127.00 5865 kilograms 12/14/2018 11:33am Calculated BMI 45.8 11/2018 11:07am No vital signs result information available. Interventions No Information Plan of Treatment Normalized Care Care Detail Care Activity Date Care Provider F acility Activity Coronavirus Ab Qn no information no information MD MAX HAUSER R [place] Via [phone] (Work Phone: [facility] ) ([id number]) Patient referral no information no information MD MAX CASH [place] [address] [phone] (Work Phone: [facility] ) ([id number]) Goals Patient Goal Desired Goal no information no information Social History Normalized Code Original Code Date Value Tobacco smoking status Tobacco smoking status no information Ex-smoker (finding) LAIS LAIS no information no information 12-11-2019 Denies Use no information no information 12-11-2019 No no information no information 12-11-2019 Former Smoker no information no information 12-11-2019 Cigarettes Sex Assigned At Sex Assigned At no information F emale Functional Status The data below is from unstructured sourcesNo functional status results.No functional status information available.No functional status information available.No functional status information available.No functional status information available.No functional status information available.No functional status information available.No functional status information available.No functional status information available.No Functional Status inform ation availableNo Functional Status information available Mental Status The data below is from unstructured sourcesNo Mental Status Information Available Encounters Encounter Normalized Encounter Encounter Diagnosis Care Provi monie Organization Date Type 02-10-2018 Admission to day no information HEYDI ACOSTA Work no organization name - surgery Phone: 02-10-2018 12-13-2019 Discharged Recurring no information (no phone) As cension [facility] (no phone) 12-13-2019 03-31-2018 Patient encounter no information no name no or ganization name - 04-01-2018 03-25-2018 Patient encounter no information no name no or ganization name - 03-26-2018 12-11-2019 Patient encounter no information GARO BLACK DO (no [facility] procedure phone) [facility] (no phone) 12-10-2019 Patient encounter no information (no phone) Zack sabillon [facility] (no phone) 12-10-2019 Patient encounter no information SHANNON OLIVER MD (no [facility] procedure phone) [facility] (no phone) 08-27-2019 Patient encounter no information MAX CASH (no [facility] phone[facility] (no 08-27-2019 phone) 07-04-2019 Patient encounter no information no name no or ganization name - procedure 07-04-2019 05-30-2019 Patient encounter no information no name no or ganization name - procedure 05-30-2019 05-10-2019 Patient encounter no information no name no or ganization name - procedure 05-10-2019 05-08-2019 Patient encounter no information MAX CASH MD (no [facility] procedure phone) [facility] (no phone) 05-07-2019 Patient encounter no information no name no or ganization name - procedure 05-07-2019 04-30-2019 Patient encounter no information no name no or ganization name - procedure 04-30-2019 04-30-2019 Patient encounter no information no name no or ganization name - procedure 04-30-2019 03-28-2019 Patient encounter no information SHANNON OLIVER MD (no [facility] [address] procedure phone) [facility] (no phone) 02-20-2019 Patient encounter no information no name no or ganization name - procedure 02-21-2019 02-20-2019 Patient encounter no information no name no or ganization name - procedure 02-21-2019 01-05-2019 Patient encounter no information no name no or ganization name - procedure 01-05-2019 01-05-2019 Patient encounter no information TANESHA SHAW MD (no [facility] [address] - procedure phone) [facility] 01-05-2019 (no phone) 01-03-2019 Patient encounter no information no name no or ganization name - procedure 01-03-2019 01-03-2019 Patient encounter no information TANESHA SHAW MD (no [facility] [address] - procedure phone) [facility] 01-03-2019 (no phone) 12-15-2018 Patient encounter no information no name no or ganization name - procedure 12-15-2018 12-15-2018 Patient encounter no information TANESHA SHAW MD (no [facility] [address] - procedure phone) [facility] 12-15-2018 (no phone) 12-14-2018 Patient encounter no information TANESHA Meyers rk no organization name - procedure Phone: 12-14-2018 12-14-2018 Patient encounter no information TANESHA SHAW MD (no [facility] [address] - procedure phone) [facility] 12-14-2018 (no phone) 12-11-2018 Patient encounter no information no name no or ganization name - procedure 12-12-2018 11-30-2018 Patient encounter no information SHANNON OLIVER Wo rk no organization name procedure 11-30-2018 Patient encounter no information SHANNON OLIVER MD (no [facility] [address] procedure phone) [facility] (no phone) 08-02-2018 Patient encounter no information no name no or ganization name - procedure 08-03-2018 06-29-2018 Patient encounter no information no name no or ganization name procedure 06-29-2018 Patient encounter no information SHANNON OLIVER MD (no [facility] [address] procedure phone) [facility] (no phone) 03-29-2018 Patient encounter no information no name no or ganization name - procedure 03-30-2018 02-10-2018 Patient encounter no information no name no or ganization name - procedure 02-10-2018 02-10-2018 Patient encounter no information HEYDI ACOSTA MD (no [facility] [address] - procedure phone) [facility] 02-10-2018 (no phone) 02-01-2018 Patient encounter no information HEYDI Bhandari k no organization name procedure 02-01-2018 Patient encounter no information HEYDI ACOSTA MD (no [facility] [address] procedure phone) [facility] (no phone) 10-19-2017 Patient encounter no information no name no or ganization name - procedure 10-20-2017 08-02-2017 Patient encounter no information no name no or ganization name - procedure 08-03-2017 06-26-2017 Patient encounter no information no name no or ganization name - procedure 06-27-2017 04-08-2017 Patient encounter no information no name no or ganization name - procedure 04-09-2017 02-17-2017 Patient encounter no information no name no or ganization name - procedure 02-18-2017 01-04-2017 Patient encounter no information no name no or ganization name - procedure 01-04-2017 01-04-2017 Patient encounter no information GARO BLACK DO (no [facility] [address] - procedure phone) [facility] 01-04-2017 (no phone) 12-31-2016 Patient encounter no information KASHIF TOPETE MD [facility] [address] - procedure (no phone) [facility] 12-31-2016 (no phone) 12-21-2016 Patient encounter no information no name no or ganization name - procedure 02-01-2017 12-21-2016 Patient encounter no information no name no or ganization name - procedure 12-22-2016 12-01-2016 Patient encounter no information HEYDI ACOSTA MD (no [facility] [address] procedure phone) [facility] (no phone) 11-10-2016 Patient encounter no information no name no or ganization name - procedure 11-11-2016 02-09-2016 Patient encounter no information no name no or ganization name - procedure 03-25-2016 12-04-2015 Patient encounter no information no name no or ganization name - procedure 01-21-2016 09-14-2019 no information Encounter for other no name (no phone) specified special examinations no information Encounter for other no name (no phone) preprocedural examination Medical Equipment The data below is from unstructured sourcesNo Medical Equipment Information available Payers Normalized Payer Value [facility] no information Medicare [id number]) Medicare no information [id number]) Evaluation note Note Type Note Facility Evaluation No Assessments Information Available A scension note [facility] ([id number]) Discharge Instructions No hospital discharge instructions.No hospital discharge instruction information available. Patient Instructions Physician Instructions Plan of Care/Instructions/FU: Follow up with Dr. Black in clinic in 2 weeks Repeat colonoscopy in 5 years. Hold Aspirin and naprosyn for 3 days. Activity as Tolerated: Yes Discharge Diet: No Restrictions Care Plan Patient Instructions:: Follow up with Dr. Black in clinic in 2 weeksRepeat colonoscopy in 5 years.Hold Aspirin and naprosyn for 3 days. No hospital discharge instruction information available.No hospital discharge i nstruction information available. Advance Directives Directive Response Recor ded Date/Time Advance Directives No 11:51am Organ Donor Yes 12/31/16 11:51am Resuscitation Status Full Code 12/31/16 11:51am Directive Response Recor ded Date/Time Advance Directives No 10:35am Organ Donor Yes 01/04/17 10:35am Resuscitation Status Full Code 01/04/17 10:35am Directive Response Recor ded Date/Time Advance Directives No 7:04am Organ Donor Yes 02/10/18 7:04am Resuscitation Status Full Code 02/10/18 7:04am Directive Response Recor ded Date/Time Advance Directives No 11:33am Health Care Power of [employer] No 12/14/18 11:33am Organ Donor Yes 12/14/18 11:33am Resuscitation Status Full Code 12/14/18 11:33am Advance Directive Response Recorded Date/Time Advance Directives No Ju 2019 2:33pm Health Care Power of [employer] No December 11, 2019 2:33pm Organ Donor Yes November 2:33pm Resuscitation Status Full Code December 11, 2019 2:33pm Additional Source Comments This clinical document has been generated using [employer] software that has been certified by the Office of the National Coordinator for Health Information Technology (ONC 15.99.04.3023.Diam.[id number]) and the National Committee for Counter Stacker (NCQA, as an eMeasure certified technology). FOR RECORDS PERTAINING TO PATIENTS WHO ARE OR HAVE BEEN ENROLLED IN A CHEMICAL D EPENDENCY/SUBSTANCE ABUSE PROGRAM, SOME INFORMATION MAY BE OMITTED. This clinica l summary was aggregated from multiple sources. Caution should be exercised in using it in the provision of clinical care. This summary normalizes information from multiple sources, and as a consequence, information in this document may ma terially change the coding, format and clinical context of patient data. In ashutosh tion, data may be omitted in some cases. CLINICAL DECISIONS SHOULD BE BASED ON T HE PRIMARY CLINICAL RECORDS. [employer] provides no warranty or guara ntee of the accuracy or completeness of information in this document.The followi ng information is based on time limited clinical information
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
--- OUTSIDE RECORDS SUMMARY | 2019-12-18 08:48 | XMS REPORT | Continuity of Care Document ---
Demographics Preferred Language Unknown Marital Status Unknown Anabaptism Affiliation Unknown Race Unknown Ethnic Group Unknown Author Organization Unknown Address Unknown Phone Unavailable Allergies Active Description Code Type Severity Reaction Onset Reported/Identified Relationship to Patient Clinical Status Yes AVELOX UNKNOWN UNKNOWN Yes CIPRO UNKNOWN UNKNOWN Yes FLOUROQUINOLONES UNKNOWN UNKNOWN Yes FLOXIN UNKNOWN UNKNOWN Yes LEVAQUIN UNKNOWN UNKNOWN Yes PENICILLINS UNKNOWN UNKNOWN Yes No Allergy Information Available [id number] Drug Allergy Unknown N/A 017 Yes atorvastatin [id number] Drug Allergy Unknown HIVES 12/31/2016 Yes Penicillins [id number] Drug Aller gy Unknown HIVES 12/31/2016 Yes rosuvastatin [id number] Drug Allergy Unknown HIVES 12/31/2016 Yes ciprofloxacin [id number] Franklyn g Allergy Unknown N/A 12/14/2018 Yes levofloxacin [id number] Drug Allergy Unknown N/A 12/14/2018 Yes moxifloxacin [id number] Drug Allergy Unknown N/A 12/14/2018 Medications There is no data. Problems Date Dx Coded Attending Type Code Diagnosis Diagnosed By 05/26/1443 GARO BLACK DO Ot Z01.818 ENCOUNTER FOR OTHER PREPROCEDURAL EXAMIN 05/26/1443 GARO BLACK DO Ot Z11. 59 ENCOUNTER FOR SCREENING FOR OTHER VIRAL 09/25/2014 DONG RUBALCAVA DO V74.1 TB SCREENING 11/22/2015 ANNABELLE CASH MD Ot G47.33 OBSTRUCTIVE SLEEP APNEA (ADULT) (PEDIATR 11/30/2015 ANNABELLE CASH MD Ot G47.33 OBSTRUCTIVE SLEEP APNEA (ADULT) (PEDIATR 12/04/2015 A 723.4 BRAC HIAL NEURITIS OR RADICULITIS NOS 12/04/2015 A M54.12 RAD ICULOPATHY, CERVICAL REGION 02/09/2016 A 723.4 BRAC HIAL NEURITIS OR RADICULITIS NOS 02/09/2016 A M54.12 RAD ICULOPATHY, CERVICAL REGION 12/02/2016 HEYDI ACOSTA MD Ot E11. 9 TYPE 2 DIABETES MELLITUS WITHOUT COMPLIC 12/02/2016 HEYDI ACOSTA MD Ot E78. 2 MIXED HYPERLIPIDEMIA 12/02/2016 HEYDI ACOSTA MD Ot G47. 33 OBSTRUCTIVE SLEEP APNEA (ADULT) (PEDIATR 12/02/2016 HEYDI ACOSTA MD Ot I08. 1 RHEUMATIC DISORDERS OF BOTH MITRAL AND T 12/02/2016 HEYDI ACOSTA MD Ot I10 ESSENTIAL (PRIMARY) HYPERTENSION 12/02/2016 HEYDI ACOSTA MD Ot I25. 10 ATHSCL HEART DISEASE OF [place] CORONARY 12/03/2016 HEYDI ACOSTA MD Ot E11. 9 TYPE 2 DIABETES MELLITUS WITHOUT COMPLIC 12/03/2016 HEYDI ACOSTA MD Ot E78. 2 MIXED HYPERLIPIDEMIA 12/03/2016 HEYDI ACOSTA MD Ot G47. 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 10 ATHSCL HEART DISEASE OF [place] CORONARY 12/16/2016 HEYDI ACOSTA MD Ot E11. 9 TYPE 2 DIABETES MELLITUS WITHOUT COMPLIC 12/16/2016 HEYDI ACOSTA MD Ot E78. 2 MIXED HYPERLIPIDEMIA 12/16/2016 HEYDI ACOSTA MD Ot G47. 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 10 ATHSCL HEART DISEASE OF [place] CORONARY 12/21/2016 SOLOMON HAQ 724.2 LUMBAGO 12/21/2016 SOLOMON HAQ M54.5 LOW BACK PAIN 12/21/2016 SOLOMON HAQ V43.65 KNEE JOINT REPLACED BY OTHER MEANS 12/21/2016 SOLOMON HAQ V54.81 AFTERCARE FOLLOWING JOINT REPLACEMENT 12/21/2016 SOLOMON HAQ Z47.1 AFTERCARE FOLLOWING JOINT REPLACEMENT SURGERY 12/21/2016 SOLOMON HAQ96.652 PRESENCE OF LEFT ARTIFICIAL KNEE JOINT 12/31/2016 YOESLYN BEDOYA, KASHIF Cullen Ot Z01.818 ENCOUNTER FOR OTHER PREPROCEDURAL EXAMIN 12/31/2016 KASHIF TOPETE MD Ot Z12.11 ENCOUNTER FOR SCREENING FOR MALIGNANT NE 01/04/2017 GARO BLACK DO Ot D12. 3 BENIGN NEOPLASM OF TRANSVERSE COLON 01/04/2017 GARO BLACK DO Ot E11. 9 TYPE 2 DIABETES MELLITUS WITHOUT COMPLIC 01/04/2017 GARO BLACK DO Ot E66. 01 MORBID (SEVERE) OBESITY DUE TO EXCESS CA 01/04/2017 GARO BLACK DO Ot G47. 33 OBSTRUCTIVE SLEEP APNEA (ADULT) (PEDIATR 01/04/2017 GARO BLACK DO Ot I10 ESSENTIAL (PRIMARY) HYPERTENSION 01/04/2017 GARO BLACK DO Ot I25. 10 ATHSCL HEART DISEASE OF [place] CORONARY 01/04/2017 GARO BLACK DO Ot K62. 1 RECTAL POLYP 01/04/2017 GARO BLACK DO Ot Z12. 11 ENCOUNTER FOR SCREENING FOR MALIGNANT NE 01/04/2017 GARO BLACK DO Ot Z68. 42 BODY MASS INDEX (BMI) 45.0-49.9, ADULT 01/04/2017 GARO BLACK DO Ot Z79.899 OTHER FINANCIAL PROFESSIONAL (CURRENT) DRUG THERAPY 01/04/2017 GARO BLACK DO Ot Z86.010 PERSONAL HISTORY OF COLONIC POLYPS 01/04/2017 GARO BLACK DO Ot Z87.891 PERSONAL HISTORY OF NICOTINE DEPENDENCE 01/04/2017 GARO BLACK DO Ot Z95. 5 PRESENCE OF CORONARY ANGIOPLASTY IMPLANT 01/10/2017 GARO BLACK DO Ot D12. 3 BENIGN NEOPLASM OF [place] COLON 01/10/2017 GARO BLACK DO Ot E11. 9 TYPE 2 DIABETES MELLITUS WITHOUT COMPLIC 01/10/2017 GARO BLACK DO Ot E66. 01 MORBID (SEVERE) OBESITY DUE TO EXCESS CA 01/10/2017 GARO BLACK DO Ot G47. 33 OBSTRUCTIVE SLEEP APNEA (ADULT) (PEDIATR 01/10/2017 GARO BLACK DO Ot I10 ESSENTIAL (PRIMARY) HYPERTENSION 01/10/2017 GARO BLACK DO Ot I25. 10 ATHSCL HEART DISEASE OF [place] CORONARY 01/10/2017 GARO BLACK DO Ot K62. 1 RECTAL POLYP 01/10/2017 GARO BLACK DO Ot Z12. 11 ENCOUNTER FOR SCREENING FOR MALIGNANT NE 01/10/2017 GARO BLACK DO Ot Z68. 42 BODY MASS INDEX (BMI) 45.0-49.9, ADULT 01/10/2017 GARO BLACK DO Ot Z79.899 OTHER FINANCIAL PROFESSIONAL (CURRENT) DRUG THERAPY 01/10/2017 GARO BLACK DO Ot Z86.010 PERSONAL HISTORY OF COLONIC POLYPS 01/10/2017 GARO BLACK DO Ot Z87.891 PERSONAL HISTORY OF NICOTINE DEPENDENCE 01/10/2017 GARO BLACK DO Ot Z95. 5 PRESENCE OF CORONARY ANGIOPLASTY IMPLANT 01/14/2017 HEYDI ACOSTA MD Ot E11. 9 TYPE 2 DIABETES MELLITUS WITHOUT COMPLIC 01/14/2017 HEYDI ACOSTA MD Ot E78. 2 MIXED HYPERLIPIDEMIA 01/14/2017 HEYDI ACOSTA MD Ot G47. 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 10 ATHSCL HEART DISEASE OF [place] CORONARY 01/19/2017 HEYDI ACOSTA MD Ot E11. 9 TYPE 2 DIABETES MELLITUS WITHOUT COMPLIC 01/19/2017 HEYDI ACOSTA MD Ot E78. 2 MIXED HYPERLIPIDEMIA 01/19/2017 HEYDI ACOSTA MD Ot G47. 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 10 ATHSCL HEART DISEASE OF [place] CORONARY 01/19/2017 HEYDI ACOSTA MD Ot E11. 9 TYPE 2 DIABETES MELLITUS WITHOUT COMPLIC 01/19/2017 HEYDI ACOSTA MD Ot E78. 2 MIXED HYPERLIPIDEMIA 01/19/2017 HEYDI ACOSTA MD Ot G47. 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 10 ATHSCL HEART DISEASE OF [place] CORONARY 02/17/2017 W 250.00 YASMANY BETES MELLITUS WITHOUT MENTION OF COMPLICATION, TYPE II OR UNSPECIFIED TYPE, NOT STATED UNCONTROLLED 02/17/2017 W 272.4 OTHE R AND UNSPECIFIED HYPERLIPIDEMIA 02/17/2017 W 300.02 GEN ERALIZED ANXIETY DISORDER 02/17/2017 W 401.9 UNSP ECIFIED ESSENTIAL HYPERTENSION 02/17/2017 W 414.00 COR ONARY ATHEROSCLEROSIS OF UNSPECIFIED TYPE OF VESSEL, [place] OR GRAFT 02/17/2017 W 477 ALLERG IC RHINITIS 02/17/2017 W 715.90 OST EOARTHROSIS, UNSPECIFIED WHETHER GENERALIZED OR LOCALIZED, INVOLVING UNSPECIFIED SITE 02/17/2017 W 780.57 UNS PECIFIED SLEEP APNEA 02/17/2017 W 791.0 PROT EINURIA 02/17/2017 W E11.9 TYPE 2 DIABETES MELLITUS WITHOUT COMPLICATIONS 02/17/2017 W E78.5 HYPE RLIPIDEMIA, UNSPECIFIED 02/17/2017 W F41.1 GENE RALIZED ANXIETY DISORDER 02/17/2017 W G47.33 OBS TRUCTIVE SLEEP APNEA (ADULT) (PEDIATRIC) 02/17/2017 W I10 ESSENT IAL (PRIMARY) HYPERTENSION 02/17/2017 W I25.10 ATH EROSCLEROTIC HEART DISEASE OF [place] CORONARY ARTERY WITHOUT ANGINA PECTORIS 02/17/2017 W J30.9 ROSALIA RGIC RHINITIS, UNSPECIFIED 02/17/2017 W M19.90 UNS PECIFIED OSTEOARTHRITIS, UNSPECIFIED SITE 02/17/2017 W R80.9 PROT EINURIA, UNSPECIFIED 02/17/2017 W V12.49 PER CELSA HISTORY OF OTHER DISORDERS OF NERVOUS SYSTEM AND SENSE ORGANS 02/17/2017 W Z86.69 PER CELSA HISTORY OF OTHER DISEASES OF THE NERVOUS SYSTEM AND SENSE ORGANS 04/08/2017 A 478.11 ALEX AL MUCOSITIS (ULCERATIVE) 04/08/2017 A J34.81 ALEX AL MUCOSITIS (ULCERATIVE) 06/26/2017 W 382.9 UNSP ECIFIED OTITIS MEDIA 06/26/2017 W H66.91 DAYANARA TIS MEDIA, UNSPECIFIED, RIGHT EAR 08/02/2017 ShannanbBrenda W 487 INFLUENZA 08/02/2017 ShannanbBrenda W 780.60 FEVER, UNSPECIFIED 08/02/2017 ShannanbBrenda W J11.1 INFLUENZA DUE TO UNIDENTIFIED INFLUENZA VIRUS WITH OTHER RESPIRATORY MANIFESTATIONS 08/02/2017 ShannanbBrenda W R50.9 FEVER, UNSPECIFIED 08/02/2017 W 487 INFLUENZA 08/02/2017 W 780.60 FEV ER, UNSPECIFIED 08/02/2017 W J11.1 INFL UENZA DUE TO UNIDENTIFIED INFLUENZA VIRUS WITH OTHER RESPIRATORY MANIFESTATIONS 08/02/2017 W R50.9 FEVE R, UNSPECIFIED 08/02/2017 W R89.9 UNSP ECIFIED ABNORMAL FINDING IN SPECIMENS FROM OTHER ORGANS, SYSTEMS AND TISSUES 10/19/2017 A 250.80 YASMANY BETES MELLITUS WITH OTHER SPECIFIED MANIFESTATIONS, TYPE II OR UNSPECIFIED TYPE, NOT STATED UNCONTROLLED 10/19/2017 W 288.60 LORI KOCYTOSIS, UNSPECIFIED 10/19/2017 W D72.829 EL EVATED WHITE BLOOD CELL COUNT, UNSPECIFIED 10/19/2017 A E11.65 TYP E 2 DIABETES MELLITUS WITH HYPERGLYCEMIA 10/20/2017 Annabelle Cash R89.9 UNSPECIFIED ABNORMAL FINDING IN SPECIMENS FROM OTHER ORGANS, SYSTEMS AND TISSUES 10/20/2017 Annabelle Cash A 250.80 DIABETES MELLITUS WITH OTHER SPECIFIED MANIFESTATIONS, TYPE II OR UNSPECIFIED TYPE, NOT STATED UNCONTROLLED 10/20/2017 Annabelle Cash W 288.60 LEUKOCYTOSIS, UNSPECIFIED 10/20/2017 Annabelle Cash W D72.829 ELEVATED WHITE BLOOD CELL COUNT, UNSPECIFIED 10/20/2017 Annabelle Cash E11.65 TYPE 2 DIABETES MELLITUS WITH HYPERGLYCEMIA 10/20/2017 Annabelle Cash W R89.9 UNSPECIFIED ABNORMAL FINDING IN SPECIMENS FROM OTHER ORGANS, SYSTEMS AND TISSUES 10/20/2017 Annabelle Cash A 250.80 DIABETES MELLITUS WITH OTHER SPECIFIED MANIFESTATIONS, TYPE II OR UNSPECIFIED TYPE, NOT STATED UNCONTROLLED 10/20/2017 Annabelle Cash W 288.60 LEUKOCYTOSIS, UNSPECIFIED 10/20/2017 Annabelle Cash D72.829 ELEVATED WHITE BLOOD CELL COUNT, UNSPECIFIED 10/20/2017 Olga Casha A E11.65 TYPE 2 DIABETES MELLITUS WITH HYPERGLYCEMIA 10/20/2017 Annabelle Cash W R89.9 UNSPECIFIED ABNORMAL FINDING IN SPECIMENS FROM OTHER ORGANS, SYSTEMS AND TISSUES 02/10/2018 HEYDI ACOSTA MD, Ot E11. 9 TYPE 2 DIABETES MELLITUS WITHOUT COMPLIC 02/10/2018 HEYDI ACOSTA MD Ot E78. 2 MIXED HYPERLIPIDEMIA 02/10/2018 HEYDI ACOSTA MD Ot G47. 33 OBSTRUCTIVE SLEEP APNEA (ADULT) (PEDIATR 02/10/2018 HEYDI ACOSTA MD Ot I10 ESSENTIAL (PRIMARY) HYPERTENSION 02/10/2018 HEYDI ACOSTA MD Ot I25. 10 ATHSCL HEART DISEASE OF [place] CORONARY 02/10/2018 HEYDI ACOSTA MD Ot I65. 23 OCCLUSION AND STENOSIS OF BILATERAL [place] 02/10/2018 HEYDI ACOSTA MD Ot M79. 7 FIBROMYALGIA 02/10/2018 HEYDI ACOSTA MD Ot Z68. 42 BODY MASS INDEX (BMI) 45.0-49.9, ADULT 02/10/2018 HEYDI ACOSTA MD Ot Z79. 82 FINANCIAL PROFESSIONAL (CURRENT) USE OF ASPIRIN 02/10/2018 HEYDI ACOSTA MD Ot Z79. 84 FINANCIAL PROFESSIONAL (CURRENT) USE OF ORAL HYPOGLYC 02/10/2018 HEYDI ACOSTA MD Ot Z79.899 OTHER [facility] (CURRENT) DRUG THERAPY 02/10/2018 HEYDI ACOSTA MD Ot Z87.891 PERSONAL HISTORY OF NICOTINE DEPENDENCE 02/14/2018 HEYDI ACOSTA MD Ot E11. 9 TYPE 2 DIABETES MELLITUS WITHOUT COMPLIC 02/14/2018 HEYDI ACOSTA MD Ot E78. 2 MIXED HYPERLIPIDEMIA 02/14/2018 HEYDI ACOSTA MD Ot G47. 33 OBSTRUCTIVE SLEEP APNEA (ADULT) (PEDIATR 02/14/2018 HEYDI ACOSTA MD Ot I10 ESSENTIAL (PRIMARY) HYPERTENSION 02/14/2018 HEYDI ACOSTA MD Ot I25. 10 ATHSCL HEART DISEASE OF [place] CORONARY 02/14/2018 HEYDI ACOSTA MD Ot I65. 23 OCCLUSION AND STENOSIS OF BILATERAL [place] 02/14/2018 HEYDI ACOSTA MD Ot M79. 7 FIBROMYALGIA 02/14/2018 HEYDI ACOSTA MD, Ot Z68. 42 BODY MASS INDEX (BMI) 45.0-49.9, ADULT 02/14/2018 HEYDI ACOSTA MD, Ot Z79. 82 FINANCIAL PROFESSIONAL (CURRENT) USE OF ASPIRIN 02/14/2018 HEYDI ACOSTA MD, Ot Z79. 84 [facility] (CURRENT) USE OF ORAL HYPOGLYC 02/14/2018 HEYDI ACOSTA MD, Ot Z79.899 OTHER [facility] (CURRENT) DRUG THERAPY 02/14/2018 HEYDI ACOSTA MD, Ot Z87.891 PERSONAL HISTORY OF NICOTINE DEPENDENCE 03/22/2018 HEYDI ACOSTA MD, Ot E11. 9 TYPE 2 DIABETES MELLITUS WITHOUT COMPLIC 03/22/2018 HEYDI ACOSTA MD, Ot E78. 2 MIXED HYPERLIPIDEMIA 03/22/2018 HEYDI ACOSTA MD, Ot I10 ESSENTIAL (PRIMARY) HYPERTENSION 03/22/2018 HEYDI ACOSTA MD, Ot I25. 10 ATHSCL HEART DISEASE OF [place] CORONARY 03/22/2018 HEYDI ACOSTA MD, Ot M79. 7 FIBROMYALGIA 03/22/2018 HEYDI ACOSTA MD, Ot Z86.010 PERSONAL HISTORY OF COLONIC POLYPS 03/29/2018 W 715.04 OST EOARTHROSIS, GENERALIZED, INVOLVING HAND 03/29/2018 W R22.9 LOCA LIZED SWELLING, MASS AND LUMP, UNSPECIFIED 03/31/2018 Annabelle Cash W 715.04 OSTEOARTHROSIS, GENERALIZED, INVOLVING HAND 03/31/2018 Annabelle Cash W R22.9 LOCALIZED SWELLING, MASS AND LUMP, UNSPECIFIED 03/31/2018 Annabelle Cash W 715.04 OSTEOARTHROSIS, GENERALIZED, INVOLVING HAND 03/31/2018 Annabelle Cash W R22.9 LOCALIZED SWELLING, MASS AND LUMP, UNSPECIFIED 07/03/2018 MELODY BEDOYA, SHANNON Gómez Ot E01 .1 IODINE-DEFICIENCY RELATED MULTINODULAR ( 07/07/2018 SHANNON OLIVER MD Ot E01 .1 IODINE-DEFICIENCY RELATED MULTINODULAR ( 07/26/2018 SHANNON OLIVER MD Ot E01 .1 IODINE-DEFICIENCY RELATED MULTINODULAR ( 12/01/2018 SHANNON OLIVER MD Ot E01 .1 IODINE-DEFICIENCY RELATED MULTINODULAR ( 12/11/2018 SHANNON OLIVER MD Ot E04 .1 NONTOXIC SINGLE THYROID NODULE 12/14/2018 TANESHA SHAW MD Ot Z01.818 ENCOUNTER FOR OTHER PREPROCEDURAL EXAMIN 12/15/2018 TANEHSA SHAW MD Ot E11.36 TYPE 2 DIABETES MELLITUS WITH DIABETIC C 12/15/2018 TANESHA SHAW MD Ot E66 .9 OBESITY, UNSPECIFIED 12/15/2018 TANESHA SHAW MD Ot F32 .9 MAJOR DEPRESSIVE DISORDER, SINGLE EPISOD 12/15/2018 TANESHA SHAW MD Ot F41 .9 ANXIETY DISORDER, UNSPECIFIED 12/15/2018 TANESHA SHAW MD Ot H25.12 AGE-RELATED NUCLEAR CATARACT, LEFT EYE 12/15/2018 TANESHA SHAW MD Ot I10 ESSENTIAL (PRIMARY) HYPERTENSION 12/15/2018 TANESHA SHAW MD Ot I25.10 ATHSCL HEART DISEASE OF [place] CORONARY 12/15/2018 TANESHA SHAW MD Ot Z68.42 BODY MASS INDEX (BMI) 45.0-49.9, ADULT 12/15/2018 TANESHA SHAW MD Ot Z79.82 FINANCIAL PROFESSIONAL (CURRENT) USE OF ASPIRIN 12/15/2018 TANESHA SHAW MD Ot Z79.899 OTHER [facility] (CURRENT) DRUG THERAPY 12/15/2018 TANESHA SHAW MD Ot Z95 .5 PRESENCE OF CORONARY ANGIOPLASTY IMPLANT 12/15/2018 TANESHA SHAW MD Ot Z01.818 ENCOUNTER FOR OTHER PREPROCEDURAL EXAMIN 12/19/2018 TANESHA SHAW MD Ot E11.36 TYPE 2 DIABETES MELLITUS WITH DIABETIC C 12/19/2018 TANESHA SHAW MD Ot E66 .9 OBESITY, UNSPECIFIED 12/19/2018 TANESHA SHAW MD Ot F32 .9 MAJOR DEPRESSIVE DISORDER, SINGLE EPISOD 12/19/2018 TANESHA SHAW MD Ot F41 .9 ANXIETY DISORDER, UNSPECIFIED 12/19/2018 TANESHA SHAW MD Ot H25.12 AGE-RELATED NUCLEAR CATARACT, LEFT EYE 12/19/2018 TANESHA SHAW MD Ot I10 ESSENTIAL (PRIMARY) HYPERTENSION 12/19/2018 TANESHA SHAW MD Ot I25.10 ATHSCL HEART DISEASE OF [place] CORONARY 12/19/2018 TANESHA SHAW MD Ot Z68.42 BODY MASS INDEX (BMI) 45.0-49.9, ADULT 12/19/2018 TANESHA SHAW MD, Ot Z79.82 FINANCIAL PROFESSIONAL (CURRENT) USE OF ASPIRIN 12/19/2018 TANESHA SHAW MD, Ot Z79.899 OTHER FINANCIAL PROFESSIONAL (CURRENT) DRUG THERAPY 12/19/2018 TANESHA SHAW MD Ot Z95 .5 PRESENCE OF CORONARY ANGIOPLASTY IMPLANT 12/26/2018 MELODY BEDOYA, SHANNON Dalia Ot E04 .1 NONTOXIC SINGLE THYROID NODULE 01/03/2019 TANESHA SHAW MD Ot Z01.818 ENCOUNTER FOR OTHER PREPROCEDURAL EXAMIN 01/04/2019 TANESHA SHAW MD Ot Z01.818 ENCOUNTER FOR OTHER PREPROCEDURAL EXAMIN 01/05/2019 TANESHA SHAW MD Ot E11 .9 TYPE 2 DIABETES MELLITUS WITHOUT COMPLIC 01/05/2019 TANESHA SHAW MD Ot E66 .9 OBESITY, UNSPECIFIED 01/05/2019 TANESHA SHAW MD, Ot E78 .5 HYPERLIPIDEMIA, UNSPECIFIED 01/05/2019 TANESHA SHAW MD Ot F32 .9 MAJOR DEPRESSIVE DISORDER, SINGLE EPISOD 01/05/2019 TANESHA SHAW MD, Ot F41 .9 ANXIETY DISORDER, UNSPECIFIED 01/05/2019 TANESHA SHAW MD Ot G47.00 INSOMNIA, UNSPECIFIED 01/05/2019 TANESHA SHAW MD Ot G47.33 OBSTRUCTIVE SLEEP APNEA (ADULT) (PEDIATR 01/05/2019 TANESHA SHAW MD, Ot H25.11 AGE-RELATED NUCLEAR CATARACT, RIGHT EYE 01/05/2019 TANESHA SHAW MD Ot I10 ESSENTIAL (PRIMARY) HYPERTENSION 01/05/2019 TANESHA SHAW MD Ot I25.10 ATHSCL HEART DISEASE OF [place] CORONARY 01/05/2019 TANESHA SHAW MD Ot K44 .9 DIAPHRAGMATIC HERNIA WITHOUT OBSTRUCTION 01/05/2019 TANESHA SHAW MD, Ot Z68.42 BODY MASS INDEX (BMI) 45.0-49.9, ADULT 01/05/2019 TANESHA SHAW MD, Ot Z79.82 [facility] (CURRENT) USE OF ASPIRIN 01/05/2019 TANESHA SHAW MD, Ot Z79.899 OTHER FINANCIAL PROFESSIONAL (CURRENT) DRUG THERAPY 01/05/2019 TANESHA SHAW MD, Ot Z80 .0 FAMILY HISTORY OF MALIGNANT NEOPLASM OF 01/05/2019 TANESHA SHAW MD, Ot Z80 .1 FAMILY HISTORY OF MALIG NEOPLASM OF [place] 01/05/2019 TANESHA SHAW MD, Ot Z88 .0 ALLERGY STATUS TO PENICILLIN 01/05/2019 TANESHA SHAW MD, Ot Z88 .1 ALLERGY STATUS TO OTHER ANTIBIOTIC AGENT 01/05/2019 TANESHA SHAW MD Ot Z95 .5 PRESENCE OF CORONARY ANGIOPLASTY IMPLANT 01/10/2019 TANESHA SHAW MD Ot E11 .9 TYPE 2 DIABETES MELLITUS WITHOUT COMPLIC 01/10/2019 TANESHA SHAW MD Ot E66 .9 OBESITY, UNSPECIFIED 01/10/2019 TANESHA SHAW MD Ot E78 .5 HYPERLIPIDEMIA, UNSPECIFIED 01/10/2019 TANESHA SHAW MD Ot F32 .9 MAJOR DEPRESSIVE DISORDER, SINGLE EPISOD 01/10/2019 TANESHA SHAW MD, Ot F41 .9 ANXIETY DISORDER, UNSPECIFIED 01/10/2019 TANESHA SHAW MD, Ot G47.00 INSOMNIA, UNSPECIFIED 01/10/2019 TANESHA SHAW MD, Ot G47.33 OBSTRUCTIVE SLEEP APNEA (ADULT) (PEDIATR 01/10/2019 TANESHA SHAW MD, Ot H25.11 AGE-RELATED NUCLEAR CATARACT, RIGHT EYE 01/10/2019 TANESHA SHAW MD Ot I10 ESSENTIAL (PRIMARY) HYPERTENSION 01/10/2019 TANESHA SHAW MD, Ot I25.10 ATHSCL HEART DISEASE OF [place] CORONARY 01/10/2019 TANESHA SHAW MD Ot K44 .9 DIAPHRAGMATIC HERNIA WITHOUT OBSTRUCTION 01/10/2019 TANESHA SHAW MD, Ot Z68.42 BODY MASS INDEX (BMI) 45.0-49.9, ADULT 01/10/2019 TANESHA SHAW MD, Ot Z79.82 [facility] (CURRENT) USE OF ASPIRIN 01/10/2019 TANESHA SHAW MD, Ot Z79.899 OTHER [facility] (CURRENT) DRUG THERAPY 01/10/2019 TANESHA SHAW MD, Ot Z80 .0 FAMILY HISTORY OF MALIGNANT NEOPLASM OF 01/10/2019 TANESHA SHAW MD, Ot Z80 .1 FAMILY HISTORY OF MALIG NEOPLASM OF [place] 01/10/2019 TANESHA SHAW MD Ot Z88 .0 ALLERGY STATUS TO PENICILLIN 01/10/2019 TANESHA SHAW MD, Ot Z88 .1 ALLERGY STATUS TO OTHER ANTIBIOTIC AGENT 01/10/2019 TANESHA SHAW MD Ot Z95 .5 PRESENCE OF CORONARY ANGIOPLASTY IMPLANT 01/12/2019 TANESHA SHAW MD Ot E11 .9 TYPE 2 DIABETES MELLITUS WITHOUT COMPLIC 01/12/2019 TANESHA SHAW MD, Ot E66 .9 OBESITY, UNSPECIFIED 01/12/2019 TANESHA SHAW MD, Ot E78 .5 HYPERLIPIDEMIA, UNSPECIFIED 01/12/2019 TANESHA SHAW MD Ot F32 .9 MAJOR DEPRESSIVE DISORDER, SINGLE EPISOD 01/12/2019 TANESHA SHAW MD, Ot F41 .9 ANXIETY DISORDER, UNSPECIFIED 01/12/2019 TANESHA SHAW MD Ot G47.00 INSOMNIA, UNSPECIFIED 01/12/2019 TANESHA SHAW MD Ot G47.33 OBSTRUCTIVE SLEEP APNEA (ADULT) (PEDIATR 01/12/2019 TANESHA SHAW MD, Ot H25.11 AGE-RELATED NUCLEAR CATARACT, RIGHT EYE 01/12/2019 TANESHA SHAW MD Ot I10 ESSENTIAL (PRIMARY) HYPERTENSION 01/12/2019 TANESHA SHAW MD, Ot I25.10 ATHSCL HEART DISEASE OF [place] CORONARY 01/12/2019 TANESHA SHAW MD Ot K44 .9 DIAPHRAGMATIC HERNIA WITHOUT OBSTRUCTION 01/12/2019 TANESHA SHAW MD, Ot Z68.42 BODY MASS INDEX (BMI) 45.0-49.9, ADULT 01/12/2019 TANESHA SHAW MD, Ot Z79.82 FINANCIAL PROFESSIONAL (CURRENT) USE OF ASPIRIN 01/12/2019 TANESHA HSAW MD, Ot Z79.899 OTHER FINANCIAL PROFESSIONAL (CURRENT) DRUG THERAPY 01/12/2019 TANESHA SHAW MD, Ot Z80 .0 FAMILY HISTORY OF MALIGNANT NEOPLASM OF 01/12/2019 ANLIKER MD, TANESHA L Ot Z80 .1 FAMILY HISTORY OF MALIG NEOPLASM OF [place] 01/12/2019 TANESHA SHAW MD Ot Z88 .0 ALLERGY STATUS TO PENICILLIN 01/12/2019 TANESHA SHAW MD Ot Z88 .1 ALLERGY STATUS TO OTHER ANTIBIOTIC AGENT 01/12/2019 TANESHA SHAW MD Ot Z95 .5 PRESENCE OF CORONARY ANGIOPLASTY IMPLANT 02/20/2019 Brokob, Brenda W 599.0 URINARY TRACT INFECTION, SITE NOT SPECIFIED 02/20/2019 Brokob, Brenda W N39.0 URINARY TRACT INFECTION, SITE NOT SPECIFIED 02/20/2019 Brokob, Brenda W 599.0 URINARY TRACT INFECTION, SITE NOT SPECIFIED 02/20/2019 Brokob, Brenda W N39.0 URINARY TRACT INFECTION, SITE NOT SPECIFIED 02/20/2019 Brokob, Brenda W 599.0 URINARY TRACT INFECTION, SITE NOT SPECIFIED 02/20/2019 Brokob, Brenda W N39.0 URINARY TRACT INFECTION, SITE NOT SPECIFIED 02/20/2019 Brokob, Brenda W 599.0 URINARY TRACT INFECTION, SITE NOT SPECIFIED 02/20/2019 Brokob, Brenda W N39.0 URINARY TRACT INFECTION, SITE NOT SPECIFIED 04/18/2019 SHANNON OLIVER MD P Ot E04 .2 NONTOXIC MULTINODULAR GOITER 04/18/2019 SHANNON OLIVER MD P Ot Z98.890 OTHER SPECIFIED POSTPROCEDURAL STATES 04/25/2019 SHANNON OLIVER MD Ot E04 .2 NONTOXIC MULTINODULAR GOITER 04/25/2019 SHANNON OLIVER MD P Ot Z98.890 OTHER SPECIFIED POSTPROCEDURAL STATES 05/10/2019 ANNABELLE CASH MD Ot Z01.89 ENCOUNTER FOR OTHER SPECIFIED SPECIAL EX 05/10/2019 ANNABELLE CASH MD Ot Z01.89 ENCOUNTER FOR OTHER SPECIFIED SPECIAL EX 05/23/2019 ANNABELLE CASH MD Ot Z01.89 ENCOUNTER FOR OTHER SPECIFIED SPECIAL EX 06/25/2019 ANNABELLE CASH MD Ot Z01.89 ENCOUNTER FOR OTHER SPECIFIED SPECIAL EX 09/14/2019 ANNABELLE CASH MD Ot Z01.89 ENCOUNTER FOR OTHER SPECIFIED SPECIAL EX 11/26/2019 SHANNON OLIVER MD Ot E01 .1 IODINE-DEFICIENCY RELATED MULTINODULAR ( 12/06/2019 HEYDI ACOSTA MD Ot E11. 9 TYPE 2 DIABETES MELLITUS WITHOUT COMPLIC 12/06/2019 HEYDI ACOSTA MD Ot E78. 2 MIXED HYPERLIPIDEMIA 12/06/2019 HEYDI ACOSTA MD, Ot G47. 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 10 ATHSCL HEART DISEASE OF [place] CORONARY 12/06/2019 HEYDI ACOSTA MD, Ot E11. 9 TYPE 2 DIABETES MELLITUS WITHOUT COMPLIC 12/06/2019 HEYDI ACOSTA MD, Ot E78. 2 MIXED HYPERLIPIDEMIA 12/06/2019 HEYDI ACOSTA MD, Ot I10 ESSENTIAL (PRIMARY) HYPERTENSION 12/06/2019 HEYDI ACOSTA MD, Ot I25. 10 ATHSCL HEART DISEASE OF [place] CORONARY 12/06/2019 HEYDI ACOSTA MD Ot M79. 7 FIBROMYALGIA 12/06/2019 HEYDI ACOSTA MD, Ot Z86.010 PERSONAL HISTORY OF COLONIC POLYPS 12/06/2019 MELODY BEDOYA, SHANNON Gómez Ot E01 .1 IODINE-DEFICIENCY RELATED MULTINODULAR ( 12/06/2019 SHANNON OLIVER MD Ot E04 .1 NONTOXIC SINGLE THYROID NODULE 12/06/2019 SHANNON OLIVER MD Ot E04 .2 NONTOXIC MULTINODULAR GOITER 12/06/2019 SHANNON OLIVER MD Ot Z98.890 OTHER SPECIFIED POSTPROCEDURAL STATES 12/06/2019 ANNABELLE CASH MD Ot Z01.89 ENCOUNTER FOR OTHER SPECIFIED SPECIAL EX Procedures Code Description [place] [address] TB T EST INTRADERMAL 09/25/2014 Results Test Result Range Lipid [...] Negative Urine-Blood 2+ Negative Urine-Color Yellow Colorless-[place] ow Urine-Glucose Negative Negative Urine-Ketones Trace Negative Urine-Leukocytes Negative Negative Urine-Nitrite Negative Negative Urine-pH 6.0 5-8.5 Urine-Protein Trace Negative Urine-RBC 20-40/HPF Urine-Specific [place] 1.025 1.000-1 .030 Urine-WBC 0-2/HPF Urobilinogen 0.2 E.U./dL 0.2-1.0 Urine Culture - 03/25/18 08:40 PRELIM CULTURE RESULTS 50,000-100,000 Gram P ositive Mixed Demetrice Probable Skin Contaminant FINAL CULTURE RESULTS 50,000-100,000 Gram Po sitive Mixed Demetrice [id number] Skin Contaminant [id number] Further Workup done CULTURE SOURCE clean catch reflex Thyroid Stimulating Hormone - 03/25/18 0 8:40 TSH 1.99 mIU/mL 0.32-5.00 Mycoplasma - 08/02/18 16:11 Mycoplasma Negative Negative VIT B-12 - 12/11/18 11:04 Vitamin B12 282.00 pg/mL 213.00-816.00 Capillary blood glucose measurement by g lucometer (mass/volume) - 12/15/18 08:31 Capillary blood glucose measurement by glucometer (mas s/volume) 221 mg/dL 70-110 Capillary blood glucose measurement by g lucometer (mass/volume) - 01/05/19 08:41 Capillary blood glucose measurement by glucometer (mas s/volume) 247 mg/dL 70-110 Urine Culture - 02/20/19 17:30 PRELIM CULTURE RESULTS 20,000-50,000 Gram Ne gative ABBIE / ID to Follow MEDIA PLATED Setup at 18:44 on 02/20/2019 CULTURE SOURCE clinic collection/voided urine Sensi - 02/20/19 17:30 FINAL CULTURE RESULTS Escherichia coli (Isolate 1) Ampicillin/Sulbactam <=8/4 Ampicillin <=8 Amoxicillin/K Clavulanate <=8/4 Ceftriaxone <=8 Ciprofloxacin <=1 Nitrofurantoin <=32 Gentamicin <=4 Levofloxacin <=2 Trimethoprim/ Sulfamethoxazole <=2/38 Tetracycline <=4 Amikacin <=16 Aztreonam <=8 Ceftazidime <=1 Ceftazidime/K Clavulanate <=0.25 Cephalothin <=8 Cefotaxime <=2 Cefotaxime/K Clavulanate <=0.5 Cefoxitin <=8 Cefazolin <=8 Cefepime <=8 Cefuroxime <=4 Ertapenem <=1 Imipenem <=4 Meropenem <=4 Piperacillin/Tazobactam <=16 Piperacillin <=16 Tigecycline <=2 Tobramycin <=4 VIT B-12 - 04/30/19 11:24 Vitamin B12 324.00 pg/mL 213.00-816.00 Peripheral Smear - 05/07/19 15:27 Peripheral smear Sent to [facility] Pathology for review Manual absolute plasma cell count - 04/27 08/15 15:27 Blood monocytes/100 leukocytes 9 % NRG Manual blood segmented neutrophils/100 leukocytes 63 % NRG Manual blood lymphocytes/100 leukocytes 15 % NRG Manual eosinophils/100 leukocytes in nose 1 % NRG Manual blood basophils/100 leukocytes 1 % NRG Blood lymphocytes variant/100 leukocytes 11 % NRG Blood erythrocyte morphology finding identification NORMAL NRG Automated reticulocyte percentage - 04/27 08/15 15:27 Blood erythrocytes automated count (number/volume) 4.98 10*6/uL 4.35-5.85 Blood reticulocytes count (number/volume) 80 10*9/ L 24-90 Blood reticulocytes/100 erythrocytes 1.60 % 0.50-2.40 Comprehensive Metabolic Panel - 05/30/19 10:19 Albumin 4.5 g/dL 3.6-5.1 ALP 106 U/L 35-130 ALT 26 U/L 6-45 Anion Gap 15 6-14 AST 21 U/L 2-40 BUN 22 mg/dL 5-25 Calcium 9.8 mg/dL 8.3-10.4 Chloride 104 mmol/L 95-114 CO2 23 mEq/L 22-33 Creat 0.90 mg/dL 0.50-1.50 eGFR 63 mL/min/1.73m2 >59 Globulin 2.7 g/dL 2.3-3.5 Glucose 252 mg/dL 70-110 Osmo 294 280-295 Potassium 4.9 mmol/L 3.5-5.3 Sodium 137 mmol/L 134-148 TBil 0.4 mg/dL 0.2-1.2 TP 7.2 g/dL 6.0-8.3 BCR-ABL1, CML/ALL, PCR, Quant - 05/30/19 10:19 Interpretation: Comment Director Review Comment e13a2 (b2a2) transcript Comment % e14a2 (b3a2) transcript Comment % e1a2 transcript Comment % Background Comment Methodology Comment PDF . JAK2 Mutation Analysis, Qual - 05/30/19 10:19 JAK2 V617F mutation detection Comment Director Review: Comment Background: Comment PTH, Intact - 07/04/19 14:29 PTH, Intact 11 pg/mL Calcium - 07/04/19 14:29 Calcium 10.2 mg/dL 8.3-10.4 PTH, Intact - 07/04/19 14:29 PTH, INTACT 11 PG/ML Coronavirus SARS-CoV-2 SO 2018 0 08:22 Coronavirus Ab [Units/volume] in Serum Negative Negative Encounters ACCT No. Visit Date/Time Discharge Status Pt. Type Provider Facility Loc./Unit Complaint [id number] 07/06/2019 13:09:00 Document Registration [id number] 12/13/2019 05:34:00 14:44:00 DIS Outpatient GARO BLACK DO [facility] PREOP COLONOSCOPY [id number] 12/10/2019 13:54:00 23:59:59 CLS Outpatient SHANNON OLIVER MD [facility] RAD THYROID NODULES [id number] 05/08/2019 15:39:00 019 23:59:59 CLS Outpatient ANNABELLE CASH MD [facility] LABNPT [id number] 03/28/2019 14:40:00 23:59:59 CLS Outpatient SHANNON OLIVER MD [facility] RAD THYROID NODULE [id number] 01/05/2019 07:35:00 09:49:00 DIS Outpatient TANESHA SHAW MD [facility] SDC CATARACT RIGHT [id number] 01/03/2019 05:39:00 019 11:03:00 DIS Outpatient TANESHA SHAW MD [facility] PREOP CATARACT RIGHT [id number] 12/15/2018 07:33:00 019 10:15:00 DIS Outpatient TANESHA SHAW MD [facility] SDC CATARACT LEFT EYE [id number] 12/14/2018 05:40:00 019 11:37:00 DIS Outpatient TANESHA SHAW MD [facility] PREOP CATARACT LEFT EYE [id number] 11/30/2018 09:42:00 23:59:59 CLS Outpatient SHANNON OLIVER MD [facility] RAD THYOID NODULE [id number] 09/06/2018 10:55:00 23:59:59 CLS Preadmit SHANNON OLIVER MD [facility] RAD MULTINODULAR GOITER [id number] 06/29/2018 09:52:00 23:59:59 CLS Outpatient SHANNON OLIVER MD [facility] RAD RIGHT THYROID NODULE [id number] 02/10/2018 07:03:00 018 12:16:00 DIS Outpatient HEYDI ACOSTA MD [facility] CATH ABN STRESS TEST,SOB,DM, CAD,HTN,HLP [id number] 12/20/2017 15:41:00 018 23:59:59 CLS Outpatient HEYDI ACOSTA MD [facility] CARD CAD, DIABETES,HTN,FIBRO MYALGIA [id number] 01/04/2017 10:26:00 017 14:40:00 DIS Outpatient GARO BLACK DO [facility] ENDO SCREENING [id number] 12/31/2016 05:31:00 017 12:04:00 DIS Outpatient KASHIF TOPETE MD [facility] PREOP SCREENING [id number] 12/01/2016 09:25:00 017 23:59:59 CLS Outpatient KARLA BEDOYA, HEYDI Meyers [facility] CARD I25.10,I10 [id number] 11/21/2015 19:52:00 016 06:10:00 DIS Outpatient ANNABELLE CASH MD [facility] SLEEP KEEGAN,SNORING, [id number] 12/18/2019 09:40:00 P EN Preadmit BLACKGARO WOO DO [facility] ENDO HX POLYPS [id number] 03/25/2018 08:40:00 Document Registration [id number] 08/27/2019 15:37:00 08/27/2019 23:59 :00 DIS Outpatient Annabelle Cash [id number] 07/04/2019 14:25:00 07/04/2019 23:59 :00 DIS Outpatient Shannon Oliver [id number] 05/30/2019 10:13:00 05/30/2019 23:59: 00 DIS Outpatient QUENTIN MARRUFO [id number] 05/10/2019 13:17:00 05/10/2019 23:59: 00 DIS Outpatient Annabelle Cash [id number] 05/07/2019 15:17:00 05/07/2019 23:59: 00 DIS Outpatient Annabelle Cash [id number] 04/30/2019 11:14:00 04/30/2019 23:59: 00 DIS Outpatient Annabelle Cash [id number] 04/30/2019 09:14:00 04/30/2019 23:59: 00 DIS Outpatient Annabelle Cash [id number] 02/20/2019 17:46:00 02/20/2019 23:59: 00 DIS Outpatient Brenda Mayberry [id number] 02/20/2019 15:50:00 02/20/2019 23:59: 00 DIS Outpatient Brenda Mayberry [id number] 12/11/2018 11:00:00 12/11/2018 23:59: 00 DIS Outpatient Annabelle Cash [id number] 08/02/2018 16:05:00 08/02/2018 23:59: 00 DIS Outpatient Annabelle Cash [id number] 03/31/2018 14:42:00 03/31/2018 23:59: 00 DIS Outpatient Annabelle Cash [id number] 03/25/2018 08:40:00 03/25/2018 23:59: 00 DIS Outpatient Annabelle Cash [id number] 10/20/2017 15:11:00 10/20/2017 23:59: 00 DIS Outpatient Annabelle Cash [id number] 08/02/2017 16:07:00 08/02/2017 23:59: 00 DIS Outpatient Brenda Mayberry [id number] 12/21/2016 10:08:00 02/01/2017 08:30: 00 DIS Outpatient SOLOMON HAQ [id number] 12/21/2016 08:58:00 12/21/2016 23:59: 00 DIS Outpatient SOLOMON HAQ [id number] 11/13/2016 11:01:00 11/13/2016 23:59: 00 DIS Outpatient Annabelle Cash [id number] 11/10/2016 15:26:00 11/10/2016 23:59: 00 DIS Outpatient Annabelle Cash [id number] 07/17/2016 10:55:00 07/17/2016 23:59: 00 DIS Outpatient Annabelle Cash [id number] 03/29/2018 14:11:00 Document Registration [id number] 10/19/2017 14:15:00 Document Registration [id number] 08/02/2017 15:08:00 Document Registration [id number] 06/26/2017 11:24:00 Document Registration [id number] 04/08/2017 15:17:00 Document Registration [id number] 02/17/2017 15:02:00 Document Registration [id number] 02/09/2016 15:15:00 Document Registration [id number] 12/04/2015 08:00:00 Document Registration [id number] 09/25/2014 16:43:00 09/25/2014 23:59: 59 CLS Outpatient DONG RUBALCAVA DO [id number] 06/06/2019 02:06:00 Document Registration
[2019-12-18] MEDS ORDERED: proPOfol 200 MG/20 ML (DIPRIVAN) VIAL IV ONE ×2 (09:15→10:56)
[2019-12-18] MEDS ORDERED: MIDAZOLAM 2 MG/2 ML (VERSED) VIAL ONE (09:16)
[2019-12-18] MEDS ORDERED: PROPOFOL INJECTION 50 ML IV ONE (09:16)
--- NOTE | 2019-12-18 10:34 | Progress Note-Pre Operative ---
Pre-Operative Progress Note H&P Reviewed The H&P was reviewed, patient examined and no changes noted. Date Seen by Provider: Dec 18, 2019 Time Seen by Provider: :33 Date H&P Reviewed: Dec 18, 2019 Time H&P Reviewed: 10:33 Pre-Operative Diagnosis: history of polyps GARO BLACK DO Dec 18, 2019 10:34
[2019-12-18 11:20] VITALS: BP 137/65
[2019-12-18 11:25] VITALS: BP 138/66
--- NOTE | 2019-12-18 11:27 | Progress Note-Post Operative ---
Post-Operative Progess Note Surgeon (s)/Medical Underwriter (s) Surgeon GARO BLACK DO Medical Underwriter: na Pre-Operative Diagnosis history of polyps Post-Operative Diagnosis colon polyps diverticulosis Procedure & Operative Findings Date of Procedure 12/18/19 Procedure Performed/Findings colonoscopy with hot bx polypectomy x 2 Anesthesia Type per [facility] Estimated Blood Loss Estimated blood loss (mL): none Specimens/Packing Specimens Removed transverse and sigmoid polyp GARO BLACK DO Dec 18, 2019 11:27
--- NOTE | 2019-12-18 11:28 | Discharge Inst-Simple/Standard ---
Discharge Inst-Standard Patient Instructions/Follow Up Plan of Care/Instructions/FU: 2 weeks Terrance Activity as Tolerated: Yes Discharge Diet: Regular Diet GARO BLACK DO Dec 18, 2019 11:28
[2019-12-18 11:30] VITALS: BP_SYST 139; BP_DIAS 68; BP_DIAS 69
[2019-12-18 11:55] VITALS: BP 120/58
[2019-12-18 12:07] VITALS: BP 120/58
--- NOTE | 2019-12-18 13:43 | Anesthesia-General Post-Op ---
MAC Patient Condition Mental Status/LOC: Same as Preop Cardiovascular: Satisfactory Nausea/Vomiting: Absent Respiratory: Satisfactory Pain: Controlled Complications: Absent Post Op Complications Complications None Follow Up Care/Instructions Patient Instructions None needed. Anesthesiology Discharge Order Discharge Order Patient was seen after the procedure and she was doing well, no complaints, stable vital signs, no apparent adverse anesthesia problems. ORLIN HARRIS DO Dec 18, 2019 13:43
--- NOTE | 2019-12-18 14:31 | OPERATIVE REPORT ---
DATE OF SERVICE: 12/18/2019 PREOPERATIVE DIAGNOSIS: History of colon polyps. POSTOPERATIVE DIAGNOSES: Colon polyps and diverticulosis. PROCEDURE: Colonoscopy with hot biopsy polypectomy x2. SURGEON: Garo Carlos DO ANESTHESIA: Per MDA. ESTIMATED BLOOD LOSS: None. COMPLICATIONS: None. SPECIMENS: Transverse colon and sigmoid colon polyp. INDICATIONS: The patient is a 64-year-old female with history of polyps. She understands risks and benefits of procedure and wished to proceed with procedure. Consent was signed in the chart. DESCRIPTION OF PROCEDURE: The patient was taken to the endoscopy suite, placed in left lateral recumbent position. Timeout was performed. Digital rectal exam was performed. There were no palpable polyps, masses or ulcerations. Scope was inserted in the rectum, advanced all the way to the cecum with minimal difficulty. Prep was adequate. Scope was then slowly retracted back. There were no polyps, masses or ulcerations in the cecum, ascending colon; and in transverse colon, a small polyp was present, which hot biopsy polypectomy was performed. Scope was then continuously retracted back. There were no polyps, masses or ulcerations within the descending colon. In the sigmoid colon, there was a minimal amount of diverticulosis and a small polyp, which hot biopsy polypectomy was performed. Scope was slowly retracted back into the rectum, where it was also retroflexed noting no other pathology. Scope was returned to its normal position, slowly withdrawn until completely removed, noting no other pathology. The patient tolerated procedure well without any complications. She was taken to recovery room in stable condition. RECOMMENDATIONS: The patient will follow up on biopsy results. Recommend high fiber diet. Recommend repeat colonoscopy in 5 years. Any issues before that be seen at that time. Job ID: [id number] DocumentID: [id number] Dictated Date: 12/18/2019 11:30:37 Pricing Strategist Date: 12/18/2019 14:30:05 Dictated By: GARO CARLOS DO
== END 2019-12-18 12:07 | disposition home or self-care (01) ==
LOC: ENDO 08:14
PROVIDERS: ATTEND Surgery
DX: Z12.11 Encounter for screening for malignant neoplasm of colon (principal); D12.5 Benign neoplasm of sigmoid colon; D12.3 Benign neoplasm of transverse colon; K57.30 Diverticulosis of large intestine without perforation or abscess without bleeding; G47.33 Obstructive sleep apnea (adult) (pediatric); E11.9 Type 2 diabetes mellitus without complications; I10 Essential (primary) hypertension; E78.2 Mixed hyperlipidemia; I25.10 Atherosclerotic heart disease of native coronary artery without angina pectoris; E66.01 Morbid (severe) obesity due to excess calories; F41.9 Anxiety disorder, unspecified; M79.7 Fibromyalgia; Z88.0 Allergy status to penicillin; Z88.1 Allergy status to other antibiotic agents; Z88.8 Allergy status to other drugs, medicaments and biological substances; Z79.82 Long term (current) use of aspirin; Z87.891 Personal history of nicotine dependence; Z68.42 Body mass index [BMI] 45.0-49.9, adult; Z79.899 Other long term (current) drug therapy; Z79.891 Long term (current) use of opiate analgesic; Z79.84 Long term (current) use of oral hypoglycemic drugs
CPT/HCPCS: 82962; 88305

== ENCOUNTER → 2020-11-25 | Outpatient (CLI) | payer BC, MEDICARE ==
[~2020-11-25] MED LIST changes: +ASPI-1238 PO; -ASPI-983 PO; -LISI10TA2 PO; +LISI10TA25 PO
== END ==
LOC: CARD 12:08
PROVIDERS: ATTEND Internal Medicine Cardiovascular Disease
DX: I10 Essential (primary) hypertension (principal); I25.10 Atherosclerotic heart disease of native coronary artery without angina pectoris
CPT/HCPCS: 93306

== ENCOUNTER → 2020-12-08 | Outpatient (CLI) | payer BC, MEDICARE ==
--- NOTE | 2020-12-08 12:03 | Diagnostic Imaging Report ---
EXAMINATION: US Thyroid. TECHNIQUE: Multiple real-time grayscale images were obtained of the thyroid in various projections. HISTORY: Thyroid nodule followup COMPARISON: Thyroid ultrasound 12/10/2019 FINDINGS: The right lobe of the thyroid measures 4.7 x 2.1 x 1.6 cm. Slightly increased size of a 1.6 cm solid, hypoechoic, wider than tall nodule with smooth margins. Slightly increased size of a 1.4 cm solid, hypoechoic, wider than tall nodule with smooth margins near the isthmus. The left lobe of the thyroid measures 3.7 x 1.4 x 1.4 cm. There is a stable 1.2 cm solid, hypoechoic, wider than tall nodule with smooth margins. The isthmus is normal and measures 0.6 cm. No suspicious adenopathy within the visualized neck. IMPRESSION: 1. Slightly increased size of 2 right solid thyroid nodules measuring up to 1.6 cm. TI-RADS 4. 2. Minimally decreased size of a 1.2 cm left thyroid nodule. TI-RADS 4. TIRADS 1: Benign No FNA or follow-up required TIRADS 2: Not Suspicious No FNA or follow-up required TIRADS 3: Mildly Suspicious FNA if ? 2.5 cm Follow if ? 1.5 cm (At 1, 3 and 5 years from initial scan) TIRADS 4: Moderately Suspicious FNA if ? 1.5 cm Follow if ? 1 cm (At 1, 2, 3 and 5 years from initial scan) TIRADS 5: Highly Suspicious FNA if ? 1 cm Follow if ? 0.5 cm (Annually for 5 years from initial scan) Dictated by: Dictated on workstation # [id number]
== END ==
LOC: RAD 10:55
PROVIDERS: ATTEND Otolaryngology Otolaryngology/Facial Plastic Surgery
DX: E04.2 Nontoxic multinodular goiter (principal)
CPT/HCPCS: 76536

== ENCOUNTER → 2020-12-30 | Outpatient (CLI) | payer BC, MEDICARE ==
[~2020-12-30] MED LIST changes: +CATHETER FLUSH 10 ML SYR IV PRN; +REGADENOSON 0.4 MG/5 ML SYR (LEXISCAN) IV ONE
[2020-12-30 11:57] VITALS: BP 185/90
--- NOTE | 2020-12-31 11:32 | Cardiology Stress Test Report ---
Stress Test Report Date of Procedure/Referring: Date of Procedure: Dec 31, 2020 PCP Heydi Ortez MD Admitting Physician Annabelle Holguin MD Indications: HTN Baseline Heart Rate: 74 Baseline Blood Pressure: Blood Pressure Systolic: 185 Blood Pressure Diastolic: 90 Baseline Vitals Vital Signs Date Time Temp Pulse Resp B/P (MAP) Pulse Ox O2 Delivery O2 Flow Rate FiO2 12/30/20 11:57 74 185/90 (121) 96 Baseline EKG: Baseline EKG: NSR Summary After explaining the procedure to the patient, she signed a consent and then brought to the stress nuclear laboratory. Patient received 0.4 mg Lexiscan for stress test, ECG, heart rate and blood pressure were monitored continuously. Resting and stress dose of radio tracer were injected, imaging was acquired and reviewed in short axis, horizontal long axis and vertical long axis views. TID: 1.13 SSS: 3 SDS: 1 EF: 70 1. Patient tolerated Lexiscan well 2. No significant ischemia or infarction on SPECT images, breast attenuation affecting the quality of the images 3. Normal left ventricular size, EF 70% HEYDI ORTEZ MD Dec 31, 2020 11:32
== END ==
LOC: CARD 10:34
PROVIDERS: ATTEND Internal Medicine Cardiovascular Disease
DX: I10 Essential (primary) hypertension (principal); I25.10 Atherosclerotic heart disease of native coronary artery without angina pectoris
CPT/HCPCS: 78452; 93017; A9502

== ENCOUNTER → 2021-01-05 | Outpatient (CLI) | payer BC, MEDICARE ==
[~2021-01-05] VITALS: Ht 167.6 cm; Wt 127.3 kg
[~2021-01-05] MED LIST changes: -CATHETER FLUSH 10 ML SYR IV PRN; +LIDOCAINE 1% INJ 20 ML 20 ML VIAL INJ ONE; -REGADENOSON 0.4 MG/5 ML SYR (LEXISCAN) IV ONE
--- NOTE | 2021-01-05 12:59 | Diagnostic Imaging Report ---
INDICATION: Thyroid nodules. Patient presents for fine-needle aspiration biopsy of right lobe thyroid nodule as well as isthmus nodule. Patient was brought to the procedure room, placed on table in the supine position. Ultrasound imaging of the neck was performed to evaluate appropriate entry site. Right neck was prepped and draped in usual sterile fashion. Small amount of 1% lidocaine was utilized for local anesthesia. A total of 4 passes were made into the dominant hypoechoic nodule in the right lobe of the thyroid utilizing 25-gauge needles and fine-needle aspiration technique. A single pass was made with a Rotex needle and Rotex biopsy was performed. Next, the midline neck was prepped and draped in usual sterile fashion. Small amount of 1% lidocaine was utilized for local anesthesia. Total of 4 passes were made into a hypoechoic nodule in the isthmus utilizing 25-gauge needles and fine-needle aspiration technique. Hemostasis was obtained. Patient tolerated the procedure well and left the department in stable condition. IMPRESSION: 1. Successful ultrasound-guided fine-needle aspiration and Rotex biopsy of right lobe thyroid nodule. 2. Successful ultrasound-guided fine-needle aspiration of isthmus nodule. Pathology results are currently pending. Dictated by: Dictated on workstation # [id number]
== END ==
LOC: RAD 11:30
PROVIDERS: ATTEND Otolaryngology Otolaryngology/Facial Plastic Surgery
DX: E04.2 Nontoxic multinodular goiter (principal)
CPT/HCPCS: 10005; 10006

== ENCOUNTER → 2022-04-19 | Outpatient (CLI) | payer BC, MEDICARE ==
[~2022-04-19] MED LIST changes: +FENO90CA2 PO; +GABA300C PO; -LIDOCAINE 1% INJ 20 ML 20 ML VIAL INJ ONE; +METF-397 PO
--- NOTE | 2022-04-19 17:07 | Diagnostic Imaging Report ---
INDICATION: Nephrolithiasis KUB at 2:44 PM There is a left-sided double-J ureteral stent. The patient has had bilateral hip arthroplasties. There is 1.5 cm calculus projecting over the left renal pelvis. IMPRESSION: Left nephrolithiasis. Dictated by: Dictated on workstation # [id number]
== END ==
LOC: RAD 14:19
PROVIDERS: ATTEND Urology
DX: N20.0 Calculus of kidney (principal)
CPT/HCPCS: 74018

== ENCOUNTER 2022-04-20 05:32 | Outpatient (CLI) | payer BC, MEDICARE ==
[~2022-04-20] VITALS: Ht 167.4 cm; Wt 117.3 kg
[~2022-04-20 05:32] MED LIST changes: -FENO90CA2 PO; -GABA300C PO; -METF-397 PO
[2022-04-20] MEDS ORDERED: FENO90CA2 PO (13:42)
[2022-04-20] MEDS ORDERED: GABA300C PO (13:42)
[2022-04-20] MEDS ORDERED: METF-397 PO (13:42)
== END 2022-04-20 14:05 | disposition home or self-care (01) ==
LOC: PREOP 05:32
PROVIDERS: ATTEND Urology
DX: Z01.818 Encounter for other preprocedural examination (principal)

== ENCOUNTER 2022-04-27 06:14 | Day surgery (SDC) | payer BC, MEDICARE ==
[2022-04-27] VITALS (12 sets, daily range): BP systolic 108–137; BP diastolic 53–71
[~2022-04-27] VITALS: Ht 167.4 cm; Wt 117.3 kg
[~2022-04-27 06:14] MED LIST changes: +ALBU8.5H6 IH; +FENO90CA2 PO; +GABA300C PO; +METF-397 PO; -RT-ALBUINH IH
[2022-04-27] MEDS ORDERED: LACTATED RINGERS 1,000 ML IV PRN (06:45)
[2022-04-27] MEDS ORDERED: GENTAMICIN (ADULT) INJECTION 80 MG in NS (IVPB) 100 ML IV ONE (06:45)
--- NOTE | 2022-04-27 07:21 | Progress Note-Pre Operative ---
Pre-Operative Progress Note Date of Available H&P: Apr 27, 2022 Date H&P Reviewed: Apr 27, 2022 Time H&P Reviewed: 07:21 Changes from last HP NONE Pre-Operative Diagnosis: LT RENAL STONE IVAN SCHREIBER MD Apr 27, 2022 07:21
--- NOTE | 2022-04-27 07:42 | Progress Note-Post Operative ---
Post-Operative Progess Note Surgeon (s)/Gas Leak Inspector Helper (s) Surgeon IVAN SCHREIBER MD Gas Leak Inspector Helper: NONE Pre-Operative Diagnosis LT RENAL STONE Post-Operative Diagnosis SAME Procedure & Operative Findings Date of Procedure 04/27/22 Procedure Performed/Findings LT ESWL Anesthesia Type GENERAL Estimated Blood Loss Estimated blood loss (mL): NONE Specimens/Packing Specimens Removed NONE Packing: NONE IVAN SCHREIBER MD Apr 27, 2022 07:42
--- NOTE | 2022-04-27 07:44 | Discharge Inst-Urology ---
Discharge Inst-Urology Reconcile Patient Problems Problems Reviewed?: Yes Final Diagnosis LT RENAL STONE Patient Instructions/Follow Up Plan/Assessment/Instructions Please make appointment to been seen in office Thursday 05/10, KUB prior to it KUB on way home Post ESWL instructions Stay off ASA Increase oral fluids for 48 hours and then as needed. Diet and Activity as tolerated. If questions or concerns contact your physician Or seek help at emergency department. IVAN SCHREIBER MD Apr 27, 2022 07:44
--- NOTE | 2022-04-27 08:18 | Diagnostic Imaging Report ---
INDICATION: ESWL. Nephrolithiasis TECHNIQUE: 2 radiograph of the abdomen 6:35 AM CORRELATION STUDY: 04/19/2022 FINDINGS: Left double pigtail ureteral stent present. Just proximal to the proximal loop is a approximately 15 mm calcification, unchanged. No definitive calcifications along the course of the stent. Right renal silhouette grossly unremarkable. Large amount of overlying bowel gas and stool obscures detail. Advanced degenerative changes lumbar spine. Bilateral hip arthroplasty. IMPRESSION: 1. Relatively stable appearance of left ureteral stent with a approximately 15 mm calcification immediately adjacent to the proximal loop. Dictated by: Dictated on workstation # [id number]
[2022-04-27] MEDS ORDERED: proPOfol 200 MG/20 ML (DIPRIVAN) VIAL IV ONE (08:59)
[2022-04-27] MEDS ORDERED: LIDOCAINE PF 2% 5 ML (XYLOCAINE) VIAL ONE (08:59)
[2022-04-27] MEDS ORDERED: MIDAZOLAM 2 MG/2 ML (VERSED) VIAL ONE (09:01)
[2022-04-27] MEDS ORDERED: fentaNYL INJ 100 MCG/2 ML AMP ONE (09:01)
[2022-04-27] MEDS ORDERED: FUROSEMIDE 40 MG/4 ML INJ (LASIX) ONE (10:00)
[2022-04-27] MEDS ORDERED: KETOROLAC 30 MG/ML VIAL ONE (10:00)
[2022-04-27] MEDS ORDERED: ONDANSETRON 4 MG/2 ML (SDV) Z0FRAN ONE (10:02)
--- NOTE | 2022-04-27 10:22 | Anesthesia-General Post-Op ---
General Patient Condition Mental Status/LOC: Same as Preop Cardiovascular: Satisfactory Nausea/Vomiting: Absent Respiratory: Satisfactory Pain: Controlled Complications: Absent Post Op Complications Complications None Follow Up Care/Instructions Patient Instructions None needed. Anesthesia/Patient Condition Patient Condition Patient is doing well, no complaints, stable vital signs, no apparent adverse anesthesia problems. No complications reported per nursing. ROBIN GANDHI CRNA Apr 27, 2022 10:22
[2022-04-27] MEDS ORDERED: morphine INJ 10 MG/ML 1ML (SYR OR VIAL) IVP ONE (10:30)
[2022-04-27] MEDS ORDERED: fentaNYL INJ 100 MCG/2 ML AMP IVP ONE (10:30)
--- NOTE | 2022-04-27 15:34 | OPERATIVE REPORT ---
DATE OF SERVICE: 04/27/2022 PREOPERATIVE DIAGNOSIS: Left renal stone. POSTOPERATIVE DIAGNOSIS: Left renal stone. OPERATION PERFORMED: Left ESWL. SURGEON: Tulio Schreiber MD ANESTHESIA: General. COMPLICATIONS: None. DESCRIPTION OF PROCEDURE: Under satisfactory general anesthesia, the patient in supine position on the ESWL table, the left renal stone was localized, and shocks were delivered at kV of 5 and total of 2500 shocks were delivered. There was good fragmentation of the stone. The patient received 40 mg of Lasix and 30 mg of Toradol IV at the end of the procedure. She tolerated the procedure and anesthesia well and was sent to recovery room in stable condition. PLAN: We will see the effect of ESWL. If we need to do another one in 2 weeks, we will proceed as explained to the patient preoperatively. Job ID: [id number] DocumentID: [id number] Dictated Date: 04/27/2022 09:54:21 It Infrastructure Engineer Date: 04/27/2022 15:33:22 Dictated By: TULIO SCHREIBER MD
--- NOTE | 2022-04-27 18:16 | Diagnostic Imaging Report ---
INDICATION: Post lithotripsy. COMPARISON: Comparison with 04/27/2022 at 06:35 a.m. FINDINGS: The lower pole calyx calculus in the left kidney does appear to be comminuted now. The stone continues to remain in the renal pelvis. Nephroureteral stent is in good position. IMPRESSION: Double-J stent in good position with comminuted left renal calculus. Dictated by: Dictated on workstation # [id number]
== END 2022-04-27 12:15 | disposition home or self-care (01) ==
LOC: SDC 06:14
PROVIDERS: ATTEND Urology
DX: N20.0 Calculus of kidney (principal); I25.10 Atherosclerotic heart disease of native coronary artery without angina pectoris; E11.40 Type 2 diabetes mellitus with diabetic neuropathy, unspecified; F32.A Depression, unspecified; M19.90 Unspecified osteoarthritis, unspecified site; G47.33 Obstructive sleep apnea (adult) (pediatric); E66.01 Morbid (severe) obesity due to excess calories; Z79.84 Long term (current) use of oral hypoglycemic drugs; Z68.41 Body mass index [BMI] 40.0-44.9, adult; Z79.85 Long-term (current) use of injectable non-insulin antidiabetic drugs; Z87.891 Personal history of nicotine dependence; Z95.5 Presence of coronary angioplasty implant and graft
CPT/HCPCS: 74018; 82947; 87081

== ENCOUNTER 2022-05-10 15:28 | Outpatient (CLI) | payer BC, MEDICARE ==
[~2022-05-10] VITALS: Ht 167.4 cm; Wt 117.3 kg
[~2022-05-10 15:28] MED LIST changes: -KETO10TA PO; -NITR-65 PO; -TMSL.4C PO
[2022-05-11] MEDS ORDERED: KETO10TA PO (12:38)
[2022-05-11] MEDS ORDERED: NITR-65 PO (12:38)
[2022-05-11] MEDS ORDERED: TMSL.4C PO (12:38)
== END 2022-05-10 16:21 | disposition home or self-care (01) ==
LOC: PREOP 15:28
PROVIDERS: ATTEND Urology
DX: Z01.818 Encounter for other preprocedural examination (principal)

== ENCOUNTER → 2022-05-10 | Outpatient (CLI) | payer BC, MEDICARE ==
[~2022-05-10] MED LIST changes: +KETO10TA PO; +NITR-65 PO; +TMSL.4C PO
--- NOTE | 2022-05-10 15:27 | Diagnostic Imaging Report ---
INDICATION: LT RENAL STONE POST ESWL. TECHNIQUE: 2 radiograph of the abdomen 12:40 PM CORRELATION STUDY: 04/27/2022 FINDINGS: Double pigtail left ureteral stent remains in place. Generally stable disposition. However, the proximal loop in relation to the calcification of the left renal pelvis is slightly changed. Calcifications now projecting just lateral inferior to the stent. No abnormal calcification of the right renal silhouette. Two punctate calcifications of the right hemipelvis favor probable small phleboliths. Advanced degenerative changes lumbar spine. Bilateral hip arthroplasty. IMPRESSION: 1. Left ureteral stent remains in place. There has been change in the location of the calcification of the left renal silhouette may be perhaps slightly more fragmented from prior. Dictated by: Dictated on workstation # [id number]
== END ==
LOC: RAD 12:22
PROVIDERS: ATTEND Urology
DX: N20.0 Calculus of kidney (principal); Z96.0 Presence of urogenital implants
CPT/HCPCS: 74018

== ENCOUNTER 2022-05-11 06:26 | Day surgery (SDC) | payer BC, MEDICARE ==
[~2022-05-11] VITALS: Ht 167.4 cm; Wt 117.3 kg
[2022-05-11] VITALS (11 sets, daily range): BP systolic 81–126; BP diastolic 33–68
--- NOTE | 2022-05-11 07:19 | Progress Note-Pre Operative ---
Pre-Operative Progress Note Date of Available H&P: May 11, 2022 Date H&P Reviewed: May 11, 2022 Time H&P Reviewed: 07:18 Changes from last HP NONE Pre-Operative Diagnosis: LT RENAL STONE IVAN SCHREIBER MD May 11, 2022 07:19
[2022-05-11] MEDS ORDERED: GENTAMICIN (ADULT) INJECTION 80 MG in NS (IVPB) 100 ML IV ONE (07:30)
[2022-05-11] MEDS ORDERED: LACTATED RINGERS 1,000 ML IV PRN (07:30)
--- NOTE | 2022-05-11 07:39 | Diagnostic Imaging Report ---
INDICATION: Nephrolithiasis. TECHNIQUE: Single supine radiograph of the abdomen 7:15 AM CORRELATION STUDY: 05/10/2022 FINDINGS: Stable appearance of the left-sided double-pigtail ureteral stent. Calcifications projecting over the inferior pole left kidney is perhaps slightly fragmented but overall appear generally stable in their size, distribution and appearance. Overlying bowel gas pattern unremarkable. Bilateral hip arthroplasties with advanced degenerative changes of the lumbar spine. IMPRESSION: 1. Stable position and orientation left ureteral stent. Perhaps slight fragmentation of the larger left renal stones. Dictated by: Dictated on workstation # [id number]
[2022-05-11] MEDS ORDERED: MIDAZOLAM 2 MG/2 ML (VERSED) VIAL ONE (09:25)
[2022-05-11] MEDS ORDERED: fentaNYL INJ 100 MCG/2 ML AMP ONE (09:25)
[2022-05-11] MEDS ORDERED: FUROSEMIDE 40 MG/4 ML INJ (LASIX) ONE ×2 (09:28→10:11)
--- NOTE | 2022-05-11 09:50 | Progress Note-Post Operative ---
Post-Operative Progess Note Surgeon (s)/Eligibility Worker (s) Surgeon IVAN SCHREIBER MD Eligibility Worker: NONE Pre-Operative Diagnosis LT RENAL STONE Post-Operative Diagnosis SAME Procedure & Operative Findings Date of Procedure 05/11/22 Procedure Performed/Findings LT ESWL, CYSTO AND DC STENT Anesthesia Type GENERAL Estimated Blood Loss Estimated blood loss (mL): NONE Specimens/Packing Specimens Removed NONE TO PATH Packing: NONE IVAN SCHREIBER MD May 11, 2022 09:50
--- NOTE | 2022-05-11 09:52 | Discharge Inst-Urology ---
Discharge Inst-Urology Reconcile Patient Problems Problems Reviewed?: Yes Final Diagnosis LT RENAL STONE Patient Instructions/Follow Up Plan/Assessment/Instructions Please make appointment to been seen in office Thursday 05/24, KUB prior to it KUB on way home Post ESWL instructions Increase oral fluids for 48 hours and then as needed. Diet and Activity as tolerated. If questions or concerns contact your physician Or seek help at emergency department. IVAN SCHREIBER MD May 11, 2022 09:52
[2022-05-11] MEDS ORDERED: KETOROLAC 30 MG/ML VIAL ONE (10:11)
[2022-05-11] MEDS ORDERED: proPOfol 200 MG/20 ML (DIPRIVAN) VIAL IV ONE (10:11)
[2022-05-11] MEDS ORDERED: ONDANSETRON 4 MG/2 ML (SDV) Z0FRAN ONE (10:11)
[2022-05-11] MEDS ORDERED: LIDOCAINE PF 2% 5 ML (XYLOCAINE) VIAL ONE (10:11)
[2022-05-11] MEDS ORDERED: SEVOFLURANE (ULTANE) 15 ML INHAL SOLN ONE (10:12)
[2022-05-11] MEDS ORDERED: TMSL.4C PO (12:38)
[2022-05-11] MEDS ORDERED: NITR-65 PO (12:38)
[2022-05-11] MEDS ORDERED: KETO10TA PO (12:38)
--- NOTE | 2022-05-11 13:15 | Diagnostic Imaging Report ---
INDICATION: Post lithotripsy COMPARISON: Imaging from the same date TECHNIQUE: 2 radiographs of the abdomen and pelvis dated 05/11/2022 FINDINGS: Interval removal of previously noted left ureteral stent. Calcifications overlying the inferior pole of the left renal shadow are again identified, appearing relatively similar to the prior examination. Largest region of calcifications measures up to 1.2 cm. No new calcifications along the expected course of left ureter. Bilateral hip arthroplasties are again identified. Scattered osseous degenerative changes with apex left curvature of the thoracolumbar spine. No acute osseous abnormality. IMPRESSION: Interval removal of previously noted left ureteral stent. Calcifications overlying the mid to inferior pole of the left renal shadow are again identified, appearing stable. Dictated by: Dictated on workstation # [id number]
--- NOTE | 2022-05-11 15:41 | OPERATIVE REPORT ---
DATE OF SERVICE: 05/11/2022 PREOPERATIVE DIAGNOSIS: Left renal stone. POSTOPERATIVE DIAGNOSIS: Left renal stone. PROCEDURES PERFORMED: Left ESWL, cystoscopy, and removal of stent. SURGEON: Dr. Tulio Schreiber. ANESTHESIA: General. COMPLICATIONS: None. DESCRIPTION OF PROCEDURE: Under satisfactory general anesthesia, the patient in supine position on the ESWL table, the left renal stone was localized. Shocks were delivered at a kV of 6. There was good fragmentation of the stone. We put then the patient during the procedure into the frog position, genitalia prepped and draped in the usual sterile fashion. Flexible cystoscope was introduced in the bladder. The distal end of the left stent was visualized, grasped with the grasping forceps and removed completely. We finished off the procedure with delivering 2500 shocks with complete fragmentation of the stone. The patient received 40 mg of Lasix and 30 mg of Toradol IV at the end of the procedure. She tolerated the procedure and anesthesia well and was sent to recovery room in a stable condition. Job ID: [id number] DocumentID: [id number] Dictated Date: 05/11/2022 10:10:16 Import/Export Administrator Date: 05/11/2022 15:38:00 Dictated By: TULIO SCHREIBER MD
== END 2022-05-11 13:30 | disposition home or self-care (01) ==
LOC: SDC 06:26
PROVIDERS: ATTEND Urology
DX: N20.0 Calculus of kidney (principal); I25.10 Atherosclerotic heart disease of native coronary artery without angina pectoris; F32.A Depression, unspecified; M19.90 Unspecified osteoarthritis, unspecified site; E11.40 Type 2 diabetes mellitus with diabetic neuropathy, unspecified; F17.210 Nicotine dependence, cigarettes, uncomplicated; E66.01 Morbid (severe) obesity due to excess calories; Z68.41 Body mass index [BMI] 40.0-44.9, adult; Z79.84 Long term (current) use of oral hypoglycemic drugs; Z79.899 Other long term (current) drug therapy
CPT/HCPCS: 74018; 82947; 87081

== ENCOUNTER → 2022-05-24 | Outpatient (CLI) | payer BC, MEDICARE ==
[~2022-05-24] MED LIST changes: +KETO10TA PO; +NITR-65 PO; +TMSL.4C PO
--- NOTE | 2022-05-24 18:38 | Diagnostic Imaging Report ---
INDICATION: Left renal stone. Status post ESWL. COMPARISON: 05/11/2022 FINDINGS: 2 frontal supine radiographic views of the abdomen were obtained. There is a mild amount of gas scattered throughout the large and small bowel. This does partially obscure the renal fossa bilaterally. No distinct unexpected extraosseous calcification or radiopaque foreign body is seen. There is no large collection of free intraperitoneal air. Osseous structures show no gross acute abnormalities. IMPRESSION: 1. No distinct unexpected extraosseous calcification is seen, although evaluation is obscured by scattered large and small bowel gas. Dictated by: Dictated on workstation # [id number]
== END ==
LOC: RAD 14:39
PROVIDERS: ATTEND Urology
DX: N20.0 Calculus of kidney (principal)
CPT/HCPCS: 74018

== ENCOUNTER → 2022-06-14 | Outpatient (CLI) | payer BC, MEDICARE ==
--- NOTE | 2022-06-14 17:36 | Diagnostic Imaging Report ---
PROCEDURE: US Thyroid. TECHNIQUE: Multiple real-time grayscale images were obtained of the thyroid in various projections. INDICATION: Follow-up thyroid nodules. COMPARISON: 12/08/2020 FINDINGS: Right lobe measures 5.1 x 2.2 x 1.4 cm and left measures 3.7 x 1.1 x 1.2 cm. Isthmus measures 4 mm in AP thickness. Multiple bilateral thyroid nodules are again identified. The largest on the right measures 1.5 x 1.1 x 1 cm. Previously, this measured 1.5 x 1.1 x 1.5 cm. The largest nodule on the left measures 1.5 x 1.1 x 0.9 cm. This is in comparison to 1.2 x 1 x 1.2 cm. Nodule at the isthmus measures 1.1 x 0.6 x 1.2 cm. Previously, this measured 1.4 x 0.7 x 1.3 cm. IMPRESSION: 1. Redemonstration bilateral thyroid nodules as above. There is slight difference in change in the dominant left nodule, but this may be related to differences in sampling technique. This could be followed. Dictated by: Dictated on workstation # [id number]
== END ==
LOC: RAD 12:00
PROVIDERS: ATTEND Otolaryngology Otolaryngology/Facial Plastic Surgery
DX: E04.2 Nontoxic multinodular goiter (principal)
CPT/HCPCS: 76536